=== PATIENT | female | born 1950 | race Caucasian/White ===

== ENCOUNTER 2016-04-11 08:50 | Outpatient (RCR) | payer OTHER ==
[~2016-04-11 08:50] MED LIST: ACTONEL PO; ONDA2VIA3 PO; TRM50T PO
--- OUTSIDE RECORDS SUMMARY | 2016-04-11 08:53 | XMS REPORT | Continuity of Care Document ---
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 Medications No known medications. Social History Social History Problem Response Recorded Date/Time Recent Foreign Travel N SEE ADDIS 01/11/2016 8:55am Hx Sexually Transmitted Disorders No 04/10/2012 7:38am Hospital Discharge Instructions No hospital discharge instructions. Plan of Care Prescriptions See Medication Section Functional Status No functional status results. Allergies, Adverse Reactions, Alerts Allergen Type Severity Reaction Status Last Updated Sulfa (Sulfonamide Antibiotics) ([id number]) Allergy Active 09/13/11 Immunizations No immunization records. Vital Signs No known vital signs results. Results Laboratory Results Test Name Result Units Flags Reference Collection Date/Time Result Date/ Time Comments White Blood Count 3.7 10^3/uL L 4.3-11.0 01/11/2016 9:05am 01/11/2016 9: 13am Red Blood Count 4.61 10^6/uL 4.35-5.85 01/11/2016 9:05am 01/11/2016 9: 13am Hemoglobin 12.9 G/DL 11.5-16.0 01/11/2016 9:05am 01/11/2016 9:13am Hematocrit 40 % 35-52 01/11/2016 9:05am 01/11/2016 9:13am Mean Corpuscular Volume 87 FL 80-99 01/11/2016 9:05am 01/11/2016 9: 13am Mean Corpuscular Hemoglobin 28 PG 25-34 01/11/2016 9:05am 01/11/2016 9: 13am Mean Corpuscular Hemoglobin Concent 32 G/DL 32-36 01/11/2016 9:05am 07/2015 9:13am Red Cell Distribution Width 13.2 % 10.0-14.5 01/11/2016 9:05am 2015 9:13am Platelet Count 247 10^3/uL 130-400 01/11/2016 9:05am 01/11/2016 9:13am Mean Platelet Volume 9.4 FL 7.4-10.4 01/11/2016 9:05am 01/11/2016 9: 13am Neutrophils (%) (Auto) 50 % 42-75 01/11/2016 9:05am 01/11/2016 9:13am Lymphocytes (%) (Auto) 35 % 12-44 01/11/2016 9:05am 01/11/2016 9:13am Monocytes (%) (Auto) 9 % 0-12 01/11/2016 9:05am 01/11/2016 9:13am Eosinophils (%) (Auto) 5 % 0-10 01/11/2016 9:05am 01/11/2016 9:13am Basophils (%) (Auto) 1 % 0-10 01/11/2016 9:05am 01/11/2016 9:13am Neutrophils # (Auto) 1.9 X 10^3 1.8-7.8 01/11/2016 9:05am 01/11/2016 9: 13am Lymphocytes # (Auto) 1.3 X 10^3 1.0-4.0 01/11/2016 9:05am 01/11/2016 9: 13am Monocytes # (Auto) 0.3 X 10^3 0.0-1.0 01/11/2016 9:05am 01/11/2016 9: 13am Eosinophils # (Auto) 0.2 10^3/uL 0.0-0.3 01/11/2016 9:05am 01/11/2016 9 :13am Basophils # (Auto) 0.0 10^3/uL 0.0-0.1 01/11/2016 9:05am 01/11/2016 9: 13am Sodium Level 140 MMOL/L 135-145 01/11/2016 9:0501/11/2016 9:45am Potassium Level 4.1 MMOL/L 3.6-5.0 01/11/2016 9:05am 01/11/2016 9:45am Chloride Level 108 MMOL/L H 98-107 01/11/2016 9:0501/11/2016 9:45am Carbon Dioxide Level 26 MMOL/L 21-32 01/11/2016 9:05am 01/11/2016 9: 45am Anion Gap 6 MMOL/L 5-14 01/11/2016 9:05am 01/11/2016 9:45am Blood Urea Nitrogen 17 MG/DL 7-18 01/11/2016 9:05am 01/11/2016 9:45am Creatinine 0.95 MG/DL 0.60-1.30 01/11/2016 9:05am 01/11/2016 9:45am BUN/Creatinine Ratio 18 01/11/2016 9:05am 01/11/2016 9:45am Estimat Glomerular Filtration Rate 59 01/11/2016 9:0501/11/2016 9:45am GFR INTERPRETIVE DATA UNITS FOR ESTIMATED GFR (eGFR): mL/min/1.73 M2 REFERENCE RANGE FOR ESTIMATED GFR (eGFR) eGFR NORMAL eGFR >60 MODERATELY DECREASED eGFR 30-59 SEVERLY DECREASED eGFR 15-29 KIDNEY FAILURE <15 (OR DIALYSIS) Glucose Level 126 MG/DL H 70-105 01/11/2016 9:0501/11/2016 9:45am Calcium Level 8.8 MG/DL 8.5-10.1 01/11/2016 9:0501/11/2016 9:45am Total Bilirubin 0.4 MG/DL 0.1-1.0 01/11/2016 9:05am 01/11/2016 9:45am Alkaline Phosphatase 68 U/L 40-136 01/11/2016 9:0501/11/2016 9:45am Aspartate Amino Transf (AST/SGOT) 15 U/L 5-34 01/11/2016 9:05am 2015 9:45am Alanine Aminotransferase (ALT/SGPT) 18 U/L 0-55 01/11/2016 9:05am 01/10 9:45am Total Protein 6.7 G/DL 6.4-8.2 01/11/2016 9:05am 01/11/2016 9:45am Albumin 4.0 G/DL 3.2-4.5 01/11/2016 9:05am 01/11/2016 9:45am Thyroid Stimulating Hormone (TSH) 1.62 UIU/ML 0.35-4.94 01/11/2016 9: 05am 01/11/2016 10:09am Free Thyroxine 0.99 NG/DL 0.70-1.48 01/11/2016 9:05am 01/11/2016 10: 09am Procedures No known history of procedures. Encounters Encounter Location Arrival/Admit Date Discharge/Depart Date Attending Provider Discharged [facility]ring [facility] 01/11/16 8:55am 9:58am JASPAL OLIVEIRA MD
[2016-04-11 09:15] LABS: BASOPHILS % (AUTO) 1 % (0-10); EOSINOPHILS # (AUTO) 0.2 10^3/uL (0.0-0.3); EOSINOPHILS % (AUTO) 4 % (0-10); LYMPHOCYTES # (AUTO) 1.8 X 10^3 (1.0-4.0); LYMPHOCYTES % (AUTO) 41 % (12-44); MEAN CORPUSCULAR HEMOGLOBIN 29 PG (25-34); MEAN CORPUSCULAR HGB CONC 33 G/DL (32-36); MEAN CORPUSCULAR VOLUME 87 FL (80-99); MEAN PLATELET VOLUME 9.5 FL (7.4-10.4); MONOCYTES # (AUTO) 0.5 X 10^3 (0.0-1.0); MONOCYTES % (AUTO) 12 % (0-12); NEUTROPHILS # (AUTO) 1.9 X 10^3 (1.8-7.8); NEUTROPHILS % (AUTO) 43 % (42-75); PLATELET COUNT 270 10^3/uL (130-400); RED BLOOD COUNT 4.58 10^6/uL (4.35-5.85); RED CELL DISTRIBUTION WIDTH 13.2 % (10.0-14.5); WHITE BLOOD COUNT 4.4 10^3/uL (4.3-11.0)
[2016-04-11 09:44] LABS: ALANINE AMINOTRANSFERASE 24 U/L (0-55); ALBUMIN 4.1 G/DL (3.2-4.5); ANION GAP 10 MMOL/L (5-14); ASPARTATE AMINO TRANSFERASE 16 U/L (5-34); BILIRUBIN,TOTAL 0.5 MG/DL (0.1-1.0); BLOOD UREA NITROGEN 11 MG/DL (7-18); BUN/CREATININE RATIO 12; CARBON DIOXIDE 24 MMOL/L (21-32); CHLORIDE 109 MMOL/L (98-107); CREATININE SERUM 0.93 MG/DL (0.60-1.30); GFR ESTIMATED > 60; GLUCOSE 115 MG/DL (70-105); POTASSIUM 3.9 MMOL/L (3.6-5.0); SODIUM 143 MMOL/L (135-145); TOTAL PROTEIN 6.8 G/DL (6.4-8.2)
== END 2016-07-10 | disposition home or self-care (01) ==
LOC: ONC 08:50
PROVIDERS: ATTEND Internal Medicine Hematology & Oncology
DX: C50.911 Malignant neoplasm of unspecified site of right female breast (principal); Z17.0 Estrogen receptor positive status [ER+]; M81.0 Age-related osteoporosis without current pathological fracture; E03.9 Hypothyroidism, unspecified; E66.9 Obesity, unspecified; Z68.33 Body mass index [BMI] 33.0-33.9, adult; Z79.811 Long term (current) use of aromatase inhibitors
CPT/HCPCS: 36415; 80053; 84443; 85025; 99213

== ENCOUNTER → 2016-10-03 | Outpatient (CLI) | payer MEDICARE ==
--- NOTE | 2016-10-06 17:52 | Diagnostic Imaging Report ---
Bilateral screening mammogram. The current study was also evaluated with a Computer Aided Detection (CAD) system. INDICATION: Screening. No current complaints stated on the questionnaire. COMPARISON: 10/04/15. FINDINGS: The breasts are composed of scattered fibroglandular densities. There are surgical clips seen in the central aspect of the right breast and in the axilla and skin thickening related to prior lumpectomy and radiation. Scarring in the lumpectomy site is also seen. No developing mass, architectural distortion or suspicious cluster of calcification is noted otherwise. Allowing for technique and positional differences, no suspicious change is seen. IMPRESSION: No significant change. ACR BI-RADS Category 2: Benign findings. Result letter will be mailed to the patient. Note: At least 10% of breast cancer is not imaged by mammography. Dictated by: Dictated on workstation # [id number]
== END ==
LOC: RAD 09:39
PROVIDERS: ATTEND Internal Medicine Hematology & Oncology
DX: Z12.31 Encounter for screening mammogram for malignant neoplasm of breast (principal)
CPT/HCPCS: 77067

== ENCOUNTER 2016-11-01 14:40 | Outpatient (RCR) | payer MEDICARE, OTHER ==
[2016-11-01 15:14] LABS: BASOPHILS # (AUTO) 0.1 10^3/uL (0.0-0.1); BASOPHILS % (AUTO) 1 % (0-10); EOSINOPHILS # (AUTO) 0.2 10^3/uL (0.0-0.3); EOSINOPHILS % (AUTO) 4 % (0-10); LYMPHOCYTES # (AUTO) 1.9 X 10^3 (1.0-4.0); LYMPHOCYTES % (AUTO) 36 % (12-44); MEAN CORPUSCULAR HEMOGLOBIN 28 PG (25-34); MEAN CORPUSCULAR HGB CONC 32 G/DL (32-36); MEAN CORPUSCULAR VOLUME 87 FL (80-99); MEAN PLATELET VOLUME 9.8 FL (7.4-10.4); MONOCYTES # (AUTO) 0.5 X 10^3 (0.0-1.0); MONOCYTES % (AUTO) 10 % (0-12); NEUTROPHILS # (AUTO) 2.5 X 10^3 (1.8-7.8); NEUTROPHILS % (AUTO) 48 % (42-75); PLATELET COUNT 269 10^3/uL (130-400); RED BLOOD COUNT 5.02 10^6/uL (4.35-5.85); RED CELL DISTRIBUTION WIDTH 13.1 % (10.0-14.5); WHITE BLOOD COUNT 5.1 10^3/uL (4.3-11.0)
[2016-11-01 15:31] LABS: ALBUMIN 4.2 G/DL (3.2-4.5); BILIRUBIN,TOTAL 0.3 MG/DL (0.1-1.0); CALCIUM 9.4 MG/DL (8.5-10.1); CREATININE SERUM 1.02 MG/DL (0.60-1.30); POTASSIUM 4.2 MMOL/L (3.6-5.0); TOTAL PROTEIN 7.2 G/DL (6.4-8.2)
[2016-11-01 15:51] LABS: THYROID STIMULATING HORMONE 1.55 UIU/ML (0.35-4.94)
== END 2017-01-30 | disposition home or self-care (01) ==
LOC: ONC 14:40
PROVIDERS: ATTEND Internal Medicine Hematology & Oncology
DX: C50.511 Malignant neoplasm of lower-outer quadrant of right female breast (principal); Z17.0 Estrogen receptor positive status [ER+]; M81.8 Other osteoporosis without current pathological fracture; E03.9 Hypothyroidism, unspecified; I10 Essential (primary) hypertension; K21.9 Gastro-esophageal reflux disease without esophagitis; M19.90 Unspecified osteoarthritis, unspecified site; E66.9 Obesity, unspecified; Z68.33 Body mass index [BMI] 33.0-33.9, adult; Z79.811 Long term (current) use of aromatase inhibitors; Z92.3 Personal history of irradiation
CPT/HCPCS: 36415; 80053; 84443; 85025; 99213

== ENCOUNTER → 2017-02-26 | Outpatient (CLI) | payer MEDICARE ==
[~2017-02-26] VITALS: Ht 154.9 cm; Wt 84.4 kg
[~2017-02-26] MED LIST changes: +DENOSUMAB 60 MG/1 ML (PROLIA) SQ ONE; +EXEM25TA4 PO; +LEVO50TA6 PO; +LOSARTAN POTASSIUM PO; +PANT40TA3 PO
[2017-02-26 13:06] VITALS: BP 139/74
== END ==
LOC: SDC 02-21 13:03
PROVIDERS: ATTEND Nurse Practitioner Family
DX: M81.0 Age-related osteoporosis without current pathological fracture (principal)
CPT/HCPCS: 96372

== ENCOUNTER 2017-04-26 10:06 | Outpatient (RCR) | payer MEDICARE, MEDICAID ==
[~2017-04-26 10:06] MED LIST changes: -DENOSUMAB 60 MG/1 ML (PROLIA) SQ ONE
[2017-04-26 10:20] LABS: BASOPHILS % (AUTO) 1 % (0-10); EOSINOPHILS # (AUTO) 0.2 10^3/uL (0.0-0.3); EOSINOPHILS % (AUTO) 4 % (0-10); HEMATOCRIT 44 % (35-52); LYMPHOCYTES # (AUTO) 1.9 X 10^3 (1.0-4.0); LYMPHOCYTES % (AUTO) 36 % (12-44); MEAN CORPUSCULAR HEMOGLOBIN 28 PG (25-34); MEAN CORPUSCULAR HGB CONC 32 G/DL (32-36); MEAN CORPUSCULAR VOLUME 88 FL (80-99); MEAN PLATELET VOLUME 9.7 FL (7.4-10.4); MONOCYTES # (AUTO) 0.6 X 10^3 (0.0-1.0); MONOCYTES % (AUTO) 11 % (0-12); NEUTROPHILS # (AUTO) 2.5 X 10^3 (1.8-7.8); NEUTROPHILS % (AUTO) 48 % (42-75); PLATELET COUNT 281 10^3/uL (130-400); RED BLOOD COUNT 4.96 10^6/uL (4.35-5.85); RED CELL DISTRIBUTION WIDTH 13.2 % (10.0-14.5); WHITE BLOOD COUNT 5.3 10^3/uL (4.3-11.0)
[2017-04-26 10:36] LABS: ALBUMIN 4.1 GM/DL (3.2-4.5); BILIRUBIN,TOTAL 0.4 MG/DL (0.1-1.0); CALCIUM 9.5 MG/DL (8.5-10.1); CREATININE SERUM 0.94 MG/DL (0.60-1.30); POTASSIUM 3.7 MMOL/L (3.6-5.0); TOTAL PROTEIN 7.5 GM/DL (6.4-8.2)
[2017-04-26 10:56] LABS: FREE T4 (FREE THYROXINE) 0.96 NG/DL (0.70-1.48)
== END 2017-07-25 | disposition home or self-care (01) ==
LOC: ONC 10:06
PROVIDERS: ATTEND Internal Medicine Hematology & Oncology
DX: C50.511 Malignant neoplasm of lower-outer quadrant of right female breast (principal); Z17.0 Estrogen receptor positive status [ER+]; M81.8 Other osteoporosis without current pathological fracture; E03.9 Hypothyroidism, unspecified; I10 Essential (primary) hypertension; K21.9 Gastro-esophageal reflux disease without esophagitis; M19.91 Primary osteoarthritis, unspecified site; E66.9 Obesity, unspecified; Z68.33 Body mass index [BMI] 33.0-33.9, adult; Z79.811 Long term (current) use of aromatase inhibitors; Z92.3 Personal history of irradiation
CPT/HCPCS: 36415; 80053; 84439; 84443; 85025; 99213

== ENCOUNTER → 2017-05-17 | Outpatient (CLI) | payer MEDICARE, MEDICAID ==
--- NOTE | 2017-05-17 12:03 | Diagnostic Imaging Report ---
EXAMINATION: DEXA scan. INDICATION: Osteopenia. TECHNIQUE: Bone mineral density estimated based on dual energy radiography over the lumbar spine and femoral necks, was performed. FINDINGS: The lumbar spine T-score is -2.7. This is 14% increased density measurements compared to 12/13/2012. This increase is perhaps in part related to sclerotic degenerative changes. T score over the left femoral neck is -0.9 and on the right side is -0.7. IMPRESSION: Osteoporosis. Dictated by: Dictated on workstation # [id number]
== END ==
LOC: RAD 08:26
PROVIDERS: ATTEND Internal Medicine Hematology & Oncology
DX: M81.0 Age-related osteoporosis without current pathological fracture (principal); C50.511 Malignant neoplasm of lower-outer quadrant of right female breast; E03.8 Other specified hypothyroidism; Z78.0 Asymptomatic menopausal state
CPT/HCPCS: 77080

== ENCOUNTER → 2017-09-10 | Outpatient (CLI) | payer MEDICARE, MEDICAID ==
[~2017-09-10] VITALS: Ht 154.9 cm; Wt 84.4 kg
[~2017-09-10] MED LIST changes: +DENOSUMAB 60 MG/1 ML (PROLIA) SQ ONE
[2017-09-10 13:38] VITALS: BP 138/77
== END ==
LOC: EDSTATUS 09-09 10:00 → SDC 13:16
PROVIDERS: ATTEND Nurse Practitioner Family
DX: M81.0 Age-related osteoporosis without current pathological fracture (principal)
CPT/HCPCS: 96372

== ENCOUNTER 2017-09-20 10:20 | Outpatient (RCR) | payer MEDICARE, MEDICAID ==
[2017-09-20 09:54] LABS: BASOPHILS # (AUTO) 0.1 10^3/uL (0.0-0.1); BASOPHILS % (AUTO) 3 % (0-10); EOSINOPHILS # (AUTO) 0.6 10^3/uL (0.0-0.3); EOSINOPHILS % (AUTO) 11 % (0-10); HEMATOCRIT 41 % (35-52); HEMOGLOBIN 13.4 G/DL (11.5-16.0); LYMPHOCYTES # (AUTO) 1.6 X 10^3 (1.0-4.0); LYMPHOCYTES % (AUTO) 32 % (12-44); MEAN CORPUSCULAR HEMOGLOBIN 29 PG (25-34); MEAN CORPUSCULAR HGB CONC 32 G/DL (32-36); MEAN CORPUSCULAR VOLUME 88 FL (80-99); MEAN PLATELET VOLUME 9.4 FL (7.4-10.4); MONOCYTES # (AUTO) 0.8 X 10^3 (0.0-1.0); MONOCYTES % (AUTO) 16 % (0-12); NEUTROPHILS # (AUTO) 1.9 X 10^3 (1.8-7.8); NEUTROPHILS % (AUTO) 38 % (42-75); PLATELET COUNT 280 10^3/uL (130-400); RED BLOOD COUNT 4.71 10^6/uL (4.35-5.85); RED CELL DISTRIBUTION WIDTH 13.7 % (10.0-14.5)
[2017-09-20 10:14] LABS: ALANINE AMINOTRANSFERASE 19 U/L (0-55); ALBUMIN 4.1 GM/DL (3.2-4.5); ALKALINE PHOSPHATASE 90 U/L (40-136); BILIRUBIN,TOTAL 0.4 MG/DL (0.1-1.0); BUN/CREATININE RATIO 16; CALCIUM 8.5 MG/DL (8.5-10.1); CARBON DIOXIDE 24 MMOL/L (21-32); CHLORIDE 109 MMOL/L (98-107); CREATININE SERUM 0.85 MG/DL (0.60-1.30); GFR ESTIMATED > 60; GLUCOSE 98 MG/DL (70-105); MAGNESIUM 2.3 MG/DL (1.8-2.4); POTASSIUM 4.1 MMOL/L (3.6-5.0); SODIUM 139 MMOL/L (135-145); TOTAL PROTEIN 7.3 GM/DL (6.4-8.2)
== END 2017-12-19 | disposition home or self-care (01) ==
LOC: ONC 10:20
PROVIDERS: ATTEND Internal Medicine Hematology & Oncology
DX: C50.511 Malignant neoplasm of lower-outer quadrant of right female breast (principal); Z17.0 Estrogen receptor positive status [ER+]; M81.8 Other osteoporosis without current pathological fracture; E03.9 Hypothyroidism, unspecified; I10 Essential (primary) hypertension; K21.9 Gastro-esophageal reflux disease without esophagitis; M19.91 Primary osteoarthritis, unspecified site; E66.9 Obesity, unspecified; Z68.33 Body mass index [BMI] 33.0-33.9, adult; Z79.811 Long term (current) use of aromatase inhibitors; Z92.3 Personal history of irradiation
CPT/HCPCS: 36415; 80053; 83735; 85025; 99213

== ENCOUNTER → 2017-09-20 | Outpatient (CLI) | payer MEDICARE, MEDICAID ==
[~2017-09-20] MED LIST changes: -DENOSUMAB 60 MG/1 ML (PROLIA) SQ ONE
== END ==
LOC: CARD 16:18
PROVIDERS: ATTEND Nurse Practitioner Family
DX: I49.9 Cardiac arrhythmia, unspecified (principal)
CPT/HCPCS: 93005

== ENCOUNTER → 2017-10-05 | Outpatient (CLI) | payer MEDICARE, OTHER ==
--- NOTE | 2017-10-05 13:28 | Diagnostic Imaging Report ---
INDICATION: Breast carcinoma. COMPARISON: Comparison is made with prior studies of 10/03/2016 and 10/04/2015. TECHNIQUE: Bilateral 3D digital tomographic views were obtained with [employer] and reviewed on a [employer] workstation. In addition, CAD - computer aided detection was utilized. FINDINGS: Both breasts are primarily involutional. Postsurgical changes in the right breast are again noted with multiple surgical clips present in the central and lateral right breast. Benign-appearing nodular densities in both breasts appear stable. No spiculated mass or malignant-appearing microcalcifications are seen. IMPRESSION: Stable bilateral mammograms. No mammographic features suspicious for malignancy are identified. ACR BI-RADS Category 2: Benign findings. Result letter will be mailed to the patient. Note: At least 10% of breast cancer is not imaged by mammography. Dictated by: Dictated on workstation # [id number]
== END ==
LOC: RAD 08:38
PROVIDERS: ATTEND Internal Medicine Hematology & Oncology
DX: Z12.31 Encounter for screening mammogram for malignant neoplasm of breast (principal); Z85.3 Personal history of malignant neoplasm of breast
CPT/HCPCS: 77067

== ENCOUNTER → 2017-10-25 | Outpatient (CLI) | payer MEDICARE, MEDICAID ==
[~2017-10-25] VITALS: Ht 154.9 cm; Wt 82.1 kg
[~2017-10-25] MED LIST changes: +CATHETER FLUSH 10 ML SYR IV PRN; +REGADENOSON 0.4 MG/5 ML SYR (LEXISCAN) IV ONE
[2017-10-25 09:18] VITALS: BP 151/98
[2017-10-25 17:14] VITALS: BP 137/81
--- NOTE | 2017-10-25 17:14 | Cardiology Stress Test Report ---
Stress Test Report Type of NM Stress Test: Test Type: LEXISCAN 0.4MG/5ML Date of Procedure/Referring: Date of Procedure: October 25, 2017 PCP Michael Holman MD Admitting Physician Michaela Quinteros MD Indications: Shortness of breath. Baseline Heart Rate: 81 Baseline Blood Pressure: Blood Pressure Systolic: 137 Blood Pressure Diastolic: 81 Baseline EKG: Baseline EKG: Sinus rhythm with PVCs. Summary: The patient was brought to the stress level off informed consent was taken. Stress test was performed according to the Lexiscan protocol. 0.4 mg of IV Lexiscan was given. Low-grade exercise was performed. Baseline EKG showed sinus rhythm with PVCs at 81 bpm and blood pressure 137/84 mmHg. Maximum heart rate of 113 bpm and blood pressure 151/98 mmHg. Patient did not have any chest pain. No EKG changes or arrhythmias noted. Patient had frequent PVCs. 10.54 mCi of Myoview were given for rest imaging and 29.5 mCi of Myoview given for stress imaging. Transient ischemic dilatation score of 1.0. Ejection fraction of 70 percent with normal wall motion. Normal perfusion during rest and stress. SSS 1, SRS 0, SDS 1. Conclusion: Pharmacological stress test is negative. Normal wall motion and normal EF, Normal perfusion during rest and stress. Michael HOLMAN MD October 25, 2017 5:14 pm
== END ==
LOC: CARD 06:57
PROVIDERS: ATTEND Internal Medicine Interventional Cardiology
DX: I10 Essential (primary) hypertension (principal); R06.02 Shortness of breath; E78.5 Hyperlipidemia, unspecified; E66.8 Other obesity
CPT/HCPCS: 78452; 93017

== ENCOUNTER → 2017-10-31 | Outpatient (CLI) | payer MEDICARE, MEDICAID ==
[~2017-10-31] MED LIST changes: -CATHETER FLUSH 10 ML SYR IV PRN; -REGADENOSON 0.4 MG/5 ML SYR (LEXISCAN) IV ONE
== END ==
LOC: CARD 08:35
PROVIDERS: ATTEND Internal Medicine Interventional Cardiology
DX: R06.02 Shortness of breath (principal); E78.5 Hyperlipidemia, unspecified; I10 Essential (primary) hypertension; I49.3 Ventricular premature depolarization; I08.3 Combined rheumatic disorders of mitral, aortic and tricuspid valves; E66.9 Obesity, unspecified
CPT/HCPCS: 93306

== ENCOUNTER → 2018-02-28 | Day surgery (SDC) | payer MEDICARE, MEDICAID ==
[~2018-02-28] VITALS: Ht 154.9 cm; Wt 81.2 kg
[~2018-02-28] MED LIST changes: +LIDOCAINE 1% INJ 20 ML 20 ML VIAL ONE
--- OUTSIDE RECORDS SUMMARY | 2018-02-28 07:52 | XMS REPORT | CCD ---
Author Author Michaela Quinteros Organization Michaela Quinteros MD, [facility] Address [address] [place] [address] Phone Care Team Providers Care Manager Laboratory Name Role Phone PP Unavailable CCM Unavailable Summary Purpose Interface Exchange Insurance Providers Payer name Policy type / Coverage type Covered libertarian ID Effective Begin Date Effective End Date [employer] Commercial Insurance [id number] Unknown [facility] Commercial Insurance [id number] 2017 Unknown Family history Father Diagnosis Age At Onset Dementia Unknown Grandfather Diagnosis Age At Onset No Family Disease Entered N/A Aunt Diagnosis Age At Onset Ovarian cancer Unknown Mother Diagnosis Age At Onset Osteoporosis Unknown Heart Attack Unknown Hypertension Unknown Hyperlipidemia Unknown Son Diagnosis Age At Onset Alcoholism Unknown Brother Diagnosis Age At Onset Alcoholism Unknown Social History Social History Element Codes Description Effective Dates Employment Unknown Currently employed Recently let go by Names and Numbers- works in [employer] 05/01/2016 Marital status Unknown 02/11/[address]: 265278369 Never smoker 02/11/[address]: 782601095 Never drinks alcohol 02/11/2013 Has the patient ever used illegal drugs? Unknown Has never used illegal drugs 02/11/2013 Allergies, Adverse Reactions, Alerts Substance Reaction Codes Entered Date Inactivated Date Status * NO KNOWN ENVIRONMENTAL ALLERGIES Unknown 02/12/2013 No Inactive Date Active * NO KNOWN FOOD ALLERGIES Unknown 02/12/2013 No Inactive Date Active SULFA (SULFONAMIDE ANTIBIOTICS) Unknown 02/11/2013 No Inactive Date Active Past Medical History Illness Codes Condition Status Onset Date Resolved Date Cardiac arrhythmia, unspecified ICD-9: 427.9 ICD-10: I49.9 Active 09/20/2017 Unknown Acute laryngopharyngitis ICD-9: 465.0 ICD-10: J06.0 Active 07/25/2017 Unknown Other allergic rhinitis ICD-9: 477.8 ICD-10: J30.89 Active 07/25/2017 Unknown Age-related osteoporosis without current pathological fracture ICD-9: 733.00 ICD-10: M81.0 Active 02/14/2017 Unknown Atrophy of thyroid (acquired) ICD-9: 244.8 ICD-10: E03.4 Active 04/30/2016 Unknown Essential (primary) hypertension ICD-9: 401.1 ICD-10: I10 Active 04/30/2016 Unknown Pain in right shoulder ICD-9: 719.41 ICD-10: M25.511 Active 09/19/2016 Unknown Encounter for general adult medical examination with abnormal findings ICD-9: V70.0 ICD-10: Z00.01 Active 09/26/2016 Unknown Hypothryroidism Unknown Active 09/07/2014 Unknown Adult hypothyroidism ICD-9: 244.9 Active 09/07/2014 Unknown Hypertension Unknown Active 06/16/2014 Unknown ESSENTIAL HYPERTENSION ICD-9: 401.9 Active 06/16/2014 Unknown OBESITY ICD-9: 278.00 Active 06/16/2014 Unknown Elevated blood pressure ICD-9: 796.2 Active 12/17/2013 Unknown ESOPHAGEAL REFLUX ICD- 9: 530.81 Active 12/16/2013 Unknown Dietary counseling ICD -9: V65.3 Active 08/14/2013 Unknown Routine general medical examination at a health care facility ICD-9: V70.0 Active 02/12/2013 Unknown Problems Condition Codes Effective Dates Condition Status Cardiac arrhythmia, unspecified ICD-9: 427.9 ICD-10: I49.9 09/20/2017 Active Acute laryngopharyngitis ICD-9: 465.0 ICD-10: J06.0 07/25/2017 Active Other allergic rhinitis ICD-9: 477.8 ICD-10: J30.89 07/25/2017 Active Age-related osteoporosis without current pathological fracture ICD-9: 733.00 ICD-10: M81.0 02/14/2017 Active Atrophy of thyroid (acquired) ICD-9: 244.8 ICD-10: E03.4 04/30/2016 Active Essential (primary) hypertension ICD-9: 401.1 ICD-10: I10 04/30/2016 Active Pain in right shoulder ICD-9: 719.41 ICD-10: M25.511 09/19/2016 Active Encounter for general adult medical examination with abnormal findings ICD-9: V70.0 ICD-10: Z00.01 09/26/2016 Active Hypothryroidism Unknown 09/07/2014 Active Adult hypothyroidism ICD-9: 244.9 09/07/2014 Active Hypertension Unknown 06/16/2014 Active ESSENTIAL HYPERTENSION ICD-9: 401.9 06/16/2014 Active OBESITY ICD-9: 278.00 06/16/2014 Active Elevated blood pressure ICD-9: 796.2 12/17/2013 Active ESOPHAGEAL REFLUX ICD- 9: 530.81 12/16/2013 Active Dietary counseling ICD -9: V65.3 08/14/2013 Active Routine general medical examination at a health care facility ICD-9: V70.0 Active Medications Medication Codes Instructions Start Date Stop Date Status Fill Instructions Synthroid 50 mcg tablet RxNorm: 487805 TAKE ONE TABLET BY MOUTH DAILY 01/23/2018 01/17/2019 Active Xarelto 20 mg tablet RxNorm: 2684618 1 Tablet(s) PO daily 12/1412/08/2018 Active Xarelto 20 mg tablet RxNorm: 3714502 1 Tablet(s) PO daily 11/1611/15/2017 Inactive Xarelto 20 mg tablet RxNorm: 0913278 1 Tablet(s) PO daily 11/1612/13/2017 Inactive Xarelto 20 mg tablet RxNorm: 0119710 1 Tablet(s) PO daily 11/1611/15/2017 Inactive pantoprazole 40 mg tablet,delayed release RxNorm: 979267 TAKE ONE TABLET BY MOUTH EVERY EVENING 11/08/2017 08/04/2018 Active Synthroid 50 mcg tablet RxNorm: 479658 TAKE ONE TABLET BY MOUTH DAILY 10/22/2017 01/19/2018 Inactive losartan 25 mg tablet RxNorm: 555302 TAKE ONE TABLET BY MOUTH EVERY EVENING 10/09/2017 10/03/2018 Active Zithromax Z-Andrei 250 mg tablet RxNorm: 774110 1 Tablet(s) PO UD 08/13/2017 10/08/2017 Inactive amoxicillin 500 mg capsule RxNorm: 079800 1 Capsule(s) PO TID 07/25/2017 08/03/2017 Inactive Synthroid 50 mcg tablet RxNorm: 261046 TAKE ONE TABLET BY MOUTH DAILY 03/27/2017 09/22/2017 Inactive pantoprazole 40 mg tablet,delayed release RxNorm: 024147 TAKE ONE TABLET BY MOUTH EVERY EVENING 11/09/2016 11/03/2017 Inactive losartan 25 mg tablet RxNorm: 717989 1 Tablet(s) PO QPM 201609/13/2017 Inactive Synthroid 50 mcg tablet RxNorm: 486652 1 Tablet(s) PO daily TAKE ONE TABLET BY MOUTH DAILY 09/19/2016 03/17/2017 Inactive alendronate 70 mg tablet RxNorm: 537661 1 Tablet(s) PO QW 09/1902/13/2017 Inactive pantoprazole 40 mg tablet,delayed release RxNorm: 544921 1 Tablet(s) PO QPM TAKE ONE TABLET BY MOUTH EVERY EVENING 05/01/2016 10/27/2016 Inactive losartan 25 mg tablet RxNorm: 154269 1 Tablet(s) PO QPM TAKE ONE TABLET BY MOUTH EVERY NIGHT AT BEDTIME 05/01/20162016 Inactive Synthroid 50 mcg tablet RxNorm: 780383 1 Tablet(s) PO daily TAKE ONE TABLET BY MOUTH DAILY 05/01/2016 09/18/2016 Inactive pantoprazole 40 mg tablet,delayed release RxNorm: 670520 TAKE ONE TABLET BY MOUTH EVERY EVENING 06/01/2015 11/27/2015 Inactive Synthroid 50 mcg tablet RxNorm: 623598 Tablet(s) PO TAKE ONE TABLET BY MOUTH DAILY 04/28/2015 11/23/2015 Inactive losartan 25 mg tablet RxNorm: 458994 TAKE ONE TABLET BY MOUTH EVERY NIGHT AT BEDTIME 04/24/2015 04/17/2016 Inactive losartan 25 mg tablet RxNorm: 458105 1 Tablet(s) PO QHS 201410/08/2017 Inactive Fosamax 70 mg tablet RxNorm: 032947 TAKE ONE TABLET BY MOUTH WEEKLY 03/30/2015 06/21/2015 Inactive Synthroid 25 mcg tablet RxNorm: 825446 TAKE ONE TABLET BY MOUTH DAILY 03/23/2015 04/27/2015 Inactive Fosamax 70 mg tablet RxNorm: 664872 1 Tablet(s) PO weekly 12/1012/09/2014 Inactive Fosamax 70 mg tablet RxNorm: 481573 1 Tablet(s) PO weekly 12/1003/29/2015 Inactive Synthroid 25 mcg tablet RxNorm: 778990 1 Tablet(s) PO daily 02/201503/16/2015 Inactive [SAVINGS FOR UNINSURED PATIENTS -- BIN:[id number], PCN: [id number], Group: [id number] , ID# [id number], Process claim through [employer], for questions: . THIS IS NOT INSURANCE.] losartan 25 mg tablet RxNorm: 528545 1 Tablet(s) PO QHS 201404/13/2015 Inactive pantoprazole 40 mg tablet,delayed release RxNorm: 426963 TAKE ONE TABLET BY MOUTH EVERY EVENING 08/17/2014 05/13/2015 Inactive Synthroid 25 mcg tablet RxNorm: 418352 1 Tablet(s) PO daily 11/02/2014 Inactive [SAVINGS FOR UNINSURED PATIENTS -- BIN:[id number], PCN: [id number], Group: [id number] , ID# [id number], Process claim through [email or web address], for questions: . THIS IS NOT INSURANCE.] Synthroid 25 mcg tablet RxNorm: 823035 1 Tablet(s) PO daily 07/05/2014 Inactive alendronate sodium-cholecalciferol(vitamin D3) 70 mg-2,800 unit tablet RxNorm: 477851 1 Tablet(s) PO QW 05/04/20142014 Inactive losartan 25 mg tablet RxNorm: 823352 1 Tablet(s) PO QHS 201308/28/2014 Inactive losartan 25 mg tablet RxNorm: 546941 1 Tablet(s) PO QHS 201304/15/2014 Inactive losartan 25 mg tablet RxNorm: 937053 1 Tablet(s) PO QHS 201312/16/2013 Inactive alendronate sodium-cholecalciferol(vitamin D3) 70 mg-2,800 unit tablet RxNorm: 985083 1 Tablet(s) PO QW 09/18/20132013 Inactive pantoprazole 40 mg tablet,delayed release RxNorm: 915312 1 Tablet(s) PO QPM 08/14/2013 08/08/2014 Inactive Calcium + Vitamin D 600 mg calcium-200 unit tablet RxNorm: 328799 2 Tablet(s) PO BID No Start Date Active exemestane 25 mg tablet RxNorm: 262886 1 Tablet(s) PO daily No Start Date Active Vitamin B12 500 mcg RxNorm: 1 Tablet(s) PO daily No Start Date Active alendronate sodium-cholecalciferol(vitamin D3) 70 mg-2,800 unit tablet RxNorm: 091615 1 Tablet(s) PO QW No Start Date 2013 Inactive Zithromax Z-Andrei 250 mg tablet RxNorm: 445977 1 Tablet(s) PO UD No Start Date 08/12/2017 Inactive alendronate 70 mg tablet RxNorm: 432104 1 Tablet(s) PO QW No Start Date 09/18/2016 Inactive Medication Administered No Medication Administered data Immunizations Vaccine Codes Date Status PPD Unknown 12/17/2013 completed Influenza CVX: 141 03/24/2013 completed Zoster CVX: 121 03/24/2013 completed Pneumococcal CVX: 133 02/13/2013 completed Influenza CVX: 141 06/10/2012 completed Pneumococcal CVX: 33 06/10/2012 completed Tetanus, Diptheria, Pertussis CVX: 113 completed Tetanus/Diptheria CVX: 113 10/09/2011 completed Assessments Condition Codes Effective Dates Cardiac arrhythmia, unspecified ICD-10: I49.9 ICD-9: 427.9 09/20/2017 Other allergic rhinitis ICD-10: J30.89 ICD-9: 477.8 07/25/2017 Acute laryngopharyngitis ICD-10: J06.0 ICD-9: 465.0 07/25/2017 Pain in right shoulder ICD-10: M25.511 ICD-9: 719.41 02/14/2017 Atrophy of thyroid (acquired) ICD-10: E03.4 ICD-9: 244.8 02/14/2017 Essential (primary) hypertension ICD-10: I10 ICD-9: 401.1 02/14/2017 Age-related osteoporosis without current pathological fracture ICD-10: M81.0 ICD-9: 733.00 02/14/2017 Encounter for general adult medical examination with abnormal findings ICD-10: Z00.01 ICD-9: V70.0 09/26/2016 Adult hypothyroidism ICD-9: 244.9 2014 ESSENTIAL HYPERTENSION ICD-9: 401.9 03/30 /2015 ESOPHAGEAL REFLUX ICD-9: 530.81 2014 OBESITY ICD-9: 278.00 06/16/2014 Elevated blood pressure ICD-9: 796.2 02/2014 Dietary counseling ICD-9: V65.3 2013 Routine general medical examination at a [facility] care facility ICD-9: V70.0 02/12/2013 Reason For Visit Reason For Visit Effective Dates Notes arrhythmia 09/20/2017 sore throat 07/25/2017 shoulder pain 02/14/2017 Annual Medicare Wellness Exam 09/26/2016 shoulder pain 09/19/2016 hypothyroid 05/01/2016 hypertension 09/07/2014 hypertension 06/16/2014 gastroesophageal reflux 12/16/2013 gastroesophageal reflux 08/14/2013 well woman exam (40-65 years) 02/12/2013 Results Observation Observation Code Item Item Code Result Date GFR CALC 3130223 GFR AA >60 ML/MIN 06/19/2014 GFR CALC 2603847 GFR NON-AA 58.0L ML/MIN 06/19/2014 CHEM 14 4603401 AST 21 U/L 06/19/2014 CHEM 14 8533381 ALT 22 IU/L 06/19/2014 CHEM 14 5675398 BUN 15 MG/DL 06/19/2014 CHEM 14 6568013 ALBUMIN 4.5 GM/DL 06/19/2014 CHEM 14 1400331 CHLORIDE 104 MMOL/L 06/19/2014 CHEM 14 8546106 BILI TOT 0.5 MG/DL 06/19/2014 CHEM 14 8653382 ALK PHOS 81 U/L 06/19/2014 CHEM 14 2768605 SODIUM 138 MMOL/L 06/19/2014 CHEM 14 2116393 CREATININE 0.97 MG/DL 06/19/2014 CHEM 14 2781203 CALCIUM 9.3 MG/DL 06/19/2014 CHEM 14 8660807 POTASSIUM 4.0 MMOL/L 06/19/2014 CHEM 14 1667024 PROT TOT 7.4 GM/DL 06/19/2014 CHEM 14 6435222 GLUCOSE 91 MG/DL 06/19/2014 CHEM 14 9331537 BICARB 28 MMOL/L 06/19/2014 CHEM 14 1421799 ANION GAP 6 MEQ/L 06/19/2014 CBC 3232034 WBC 4.1 10e9/L 06/19/2014 CBC 2460162 RBC 4.98 10e12/L 06/19/2014 CBC 8446125 HGB 14.1 g/dL 06/19/2014 CBC 7361170 HCT DET 43.7 % 06/19/2014 CBC 8741841 MCV 87.8 fL 06/19/2014 CBC 7601798 MCH 28.3 pg 06/19/2014 CBC 3920821 MCHC 32.3 g/dL 06/19/2014 CBC 4400176 PLT 289 10e9/L 06/19/2014 CBC 6522270 MPV 9.7 fL 06/19/2014 CBC 1808901 OSIEL % 43.1 % 06/19/2014 CBC 3564886 LY % 40.7 % 06/19/2014 CBC [id number] MON % 12.3 % 06/19/2014 CBC 5549621 EOS % 3.2 % 06/19/2014 CBC 1126784 BASO % 0.7 % 06/19/2014 CBC 8697118 RDW 13.3 % 06/19/2014 CBC 8611238 ABS OSIEL 1.77 10e9/L 06/19/2014 CBC 3047276 ABS LYMPH 1.67 10e9/L 06/19/2014 CBC 9239552 ABS MONO 0.50 10e9/L 06/19/2014 CBC [id number] ABS EOS 0.13 10e9/L 06/19/2014 CBC 3990796 ABS BASO 0.03 10e9/L 06/19/2014 CBC 6809882 RDW-SD 41.7 fL 06/19/2014 LIPID GRP HDL TEST 30 MG/DL 06/19/2014 LIPID GRP TRIG 119 MG/DL 06/19/2014 LIPID GRP TEST LDL 129 MG/DL 06/19/2014 LIPID GRP CHOL 183 MG/DL 06/19/2014 LIPID GRP RCHOL/HDL 6.10 RATIO 06/19/2014 LIPID GRP NON-HDL CH 153 MG/DL 06/19/2014 TSH 0022775 TSH 5.125 uIU/ML 06/19/2014 Review of Systems System Result Effective Dates Constitutional No recent illness 2017 Constitutional No chills 09/20/2017 Constitutional No diaphoresis 09/20/2017 Constitutional No fever 09/20/2017 Constitutional No fatigue 09/20/2017 Constitutional No malaise 09/20/2017 Eyes No eye erythema 09/20/2017 Ears/Nose/Throat/Neck No nasal discharge 09/20/2017 Ears/Nose/Throat/Neck No nasal allergies 09/20/2017 Cardiovascular No chest pain/pressure 05/2018 Cardiovascular No dyspnea 09/20/2017 Cardiovascular No edema 09/20/2017 Cardiovascular No fatigue 09/20/2017 Cardiovascular No near-syncope/dizziness 09/20/2017 Cardiovascular No palpitations 2017 Cardiovascular No syncope 09/20/2017 Respiratory No cough 09/20/2017 Respiratory No chest congestion 2017 Gastrointestinal No abdominal pain 2017 Dermatologic No rash 09/20/2017 Neurologic No alteration of consciousness 09/20/2017 Neurologic No mental status change 2017 Constitutional recent illness 07/25/2017 Constitutional chills 07/25/2017 Constitutional No diaphoresis 07/25/2017 Constitutional fever 07/25/2017 Eyes No eye erythema 07/25/2017 Ears/Nose/Throat/Neck nasal allergies Ears/Nose/Throat/Neck nasal discharge Ears/Nose/Throat/Neck postnasal drip Ears/Nose/Throat/Neck sinus congestion Ears/Nose/Throat/Neck sore throat 2017 Cardiovascular No chest pain/pressure Cardiovascular No dyspnea 07/25/2017 Respiratory No chest congestion 2017 Respiratory cough 07/25/2017 Respiratory No dyspnea 07/25/2017 Gastrointestinal No constipation 2017 Gastrointestinal No diarrhea 07/25/2017 Gastrointestinal No nausea 07/25/2017 Gastrointestinal No vomiting 07/25/2017 Dermatologic No rash 07/25/2017 Neurologic No alteration of consciousness 07/25/2017 Neurologic No mental status change 2017 Constitutional No recent illness 2016 Constitutional No fatigue 02/14/2017 Constitutional No fever 02/14/2017 Constitutional No insomnia 02/14/2017 Eyes No eye discharge 02/14/2017 Eyes No eye erythema 02/14/2017 Ears/Nose/Throat/Neck No headache 2016 Ears/Nose/Throat/Neck No nasal discharge 02/14/2017 Cardiovascular No chest pain/pressure 11/2016 Cardiovascular No edema 02/14/2017 Cardiovascular No near-syncope/dizziness 02/14/2017 Cardiovascular No syncope 02/14/2017 Respiratory No productive sputum 2016 Respiratory No chest congestion 2016 Respiratory No chest tightness 2016 Respiratory No cigarette smoking 2016 Respiratory No cough 02/14/2017 Respiratory No dyspnea 02/14/2017 Gastrointestinal No abdominal pain 2016 Gastrointestinal No constipation 2016 Gastrointestinal No diarrhea 02/14/2017 Gastrointestinal gas and bloating 2016 Gastrointestinal gastroesophageal reflux 02/14/2017 Gastrointestinal No nausea 02/14/2017 Gastrointestinal No vomiting 02/14/2017 Genitourinary/Nephrology No breast complaint 02/14/2017 Genitourinary/Nephrology No dysuria 02/14 Genitourinary/Nephrology No hematuria 11/2016 Genitourinary/Nephrology No menopausal symptoms 02/14/2017 Genitourinary/Nephrology No nocturia 11/2016 Genitourinary/Nephrology No Pap smear abnormality 02/14/2017 Genitourinary/Nephrology No urinary urgency 02/14/2017 Genitourinary/Nephrology No urinary frequency 02/14/2017 Genitourinary/Nephrology No urinary incontinence 02/14/2017 Genitourinary/Nephrology No vaginal discharge 02/14/2017 Musculoskeletal stiffness 02/14/2017 Musculoskeletal No swelling 02/14/2017 Musculoskeletal No joint complaint 2016 Musculoskeletal No muscle weakness 2016 Musculoskeletal No myalgias 02/14/2017 Dermatologic No rash 02/14/2017 Neurologic No alteration of consciousness 02/14/2017 Psychiatric No anxiety 02/14/2017 Psychiatric No depression 02/14/2017 Musculoskeletal shoulder pain 02/14/2017 Constitutional No recent illness 2016 Constitutional No chills 09/26/2016 Constitutional No diaphoresis 09/26/2016 Constitutional No fever 09/26/2016 Eyes No eye erythema 09/26/2016 Ears/Nose/Throat/Neck No nasal allergies 09/26/2016 Ears/Nose/Throat/Neck No nasal discharge 09/26/2016 Cardiovascular No chest pain/pressure Respiratory No cough 09/26/2016 Respiratory No dyspnea 09/26/2016 Gastrointestinal No abdominal pain 2016 Neurologic No alteration of consciousness 09/26/2016 Neurologic No mental status change 2016 Constitutional No recent illness 2016 Constitutional No fatigue 09/19/2016 Constitutional No fever 09/19/2016 Constitutional No insomnia 09/19/2016 Eyes No eye discharge 09/19/2016 Eyes No eye erythema 09/19/2016 Ears/Nose/Throat/Neck No headache 2016 Ears/Nose/Throat/Neck No nasal discharge 09/19/2016 Cardiovascular No chest pain/pressure 04/2017 Cardiovascular No edema 09/19/2016 Cardiovascular No near-syncope/dizziness 09/19/2016 Cardiovascular No syncope 09/19/2016 Respiratory No productive sputum 2016 Respiratory No chest congestion 2016 Respiratory No chest tightness 2016 Respiratory No cigarette smoking 2016 Respiratory No cough 09/19/2016 Respiratory No dyspnea 09/19/2016 Gastrointestinal No abdominal pain 2016 Gastrointestinal No constipation 2016 Gastrointestinal No diarrhea 09/19/2016 Gastrointestinal gastroesophageal reflux 09/19/2016 Gastrointestinal No nausea 09/19/2016 Gastrointestinal No vomiting 09/19/2016 Genitourinary/Nephrology No breast complaint 09/19/2016 Genitourinary/Nephrology No dysuria 09/19 Genitourinary/Nephrology No hematuria 04/2017 Genitourinary/Nephrology No menopausal symptoms 09/19/2016 Genitourinary/Nephrology No nocturia 04/2017 Genitourinary/Nephrology No Pap smear abnormality 09/19/2016 Genitourinary/Nephrology No urinary urgency 09/19/2016 Genitourinary/Nephrology No urinary frequency 09/19/2016 Genitourinary/Nephrology No urinary incontinence 09/19/2016 Genitourinary/Nephrology No vaginal discharge 09/19/2016 Musculoskeletal No stiffness 09/19/2016 Musculoskeletal No swelling 09/19/2016 Musculoskeletal joint complaint 2016 Musculoskeletal No muscle weakness 2016 Musculoskeletal No myalgias 09/19/2016 Dermatologic No rash 09/19/2016 Dermatologic No scar 09/19/2016 Neurologic No alteration of consciousness 09/19/2016 Psychiatric No anxiety 09/19/2016 Psychiatric No depression 09/19/2016 Musculoskeletal shoulder pain 09/19/2016 Constitutional No recent illness 2015 Constitutional No fatigue 05/01/2016 Constitutional No fever 05/01/2016 Constitutional No insomnia 05/01/2016 Eyes No eye discharge 05/01/2016 Eyes No eye erythema 05/01/2016 Ears/Nose/Throat/Neck No headache 2015 Ears/Nose/Throat/Neck No nasal discharge 05/01/2016 Cardiovascular No chest pain/pressure Cardiovascular No edema 05/01/2016 Cardiovascular No near-syncope/dizziness 05/01/2016 Cardiovascular No syncope 05/01/2016 Respiratory No productive sputum 2015 Respiratory No chest congestion 2015 Respiratory No chest tightness 2015 Respiratory No cigarette smoking 2015 Respiratory No cough 05/01/2016 Respiratory No dyspnea 05/01/2016 Gastrointestinal No abdominal pain 2015 Gastrointestinal No constipation 2015 Gastrointestinal No diarrhea 05/01/2016 Gastrointestinal gas and bloating 2015 Gastrointestinal gastroesophageal reflux 05/01/2016 Gastrointestinal No nausea 05/01/2016 Gastrointestinal No vomiting 05/01/2016 Genitourinary/Nephrology No breast complaint 05/01/2016 Genitourinary/Nephrology No dysuria 05/01 Genitourinary/Nephrology No hematuria Genitourinary/Nephrology No menopausal symptoms 05/01/2016 Genitourinary/Nephrology No nocturia Genitourinary/Nephrology No Pap smear abnormality 05/01/2016 Genitourinary/Nephrology No urinary urgency 05/01/2016 Genitourinary/Nephrology No urinary frequency 05/01/2016 Genitourinary/Nephrology No urinary incontinence 05/01/2016 Genitourinary/Nephrology No vaginal discharge 05/01/2016 Musculoskeletal No stiffness 05/01/2016 Musculoskeletal No swelling 05/01/2016 Musculoskeletal No joint complaint 2015 Musculoskeletal No muscle weakness 2015 Musculoskeletal No myalgias 05/01/2016 Dermatologic No rash 05/01/2016 Dermatologic No scar 05/01/2016 Neurologic No alteration of consciousness 05/01/2016 Psychiatric No anxiety 05/01/2016 Psychiatric No depression 05/01/2016 Constitutional No recent illness 2014 Constitutional No fatigue 09/07/2014 Constitutional No fever 09/07/2014 Constitutional No insomnia 09/07/2014 Eyes No eye discharge 09/07/2014 Eyes No eye erythema 09/07/2014 Ears/Nose/Throat/Neck No headache 2014 Ears/Nose/Throat/Neck No nasal discharge 09/07/2014 Cardiovascular No chest pain/pressure Cardiovascular No edema 09/07/2014 Cardiovascular No near-syncope/dizziness 09/07/2014 Cardiovascular No syncope 09/07/2014 Respiratory No productive sputum 2014 Respiratory No chest congestion 2014 Respiratory No chest tightness 2014 Respiratory No cigarette smoking 2014 Respiratory No cough 09/07/2014 Respiratory No dyspnea 09/07/2014 Gastrointestinal No abdominal pain 2014 Gastrointestinal No constipation 2014 Gastrointestinal No diarrhea 09/07/2014 Gastrointestinal gas and bloating 2014 Gastrointestinal gastroesophageal reflux 09/07/2014 Gastrointestinal No nausea 09/07/2014 Gastrointestinal No vomiting 09/07/2014 Genitourinary/Nephrology No breast complaint 09/07/2014 Genitourinary/Nephrology No dysuria 09/07 Genitourinary/Nephrology No hematuria Genitourinary/Nephrology No menopausal symptoms 09/07/2014 Genitourinary/Nephrology No nocturia Genitourinary/Nephrology No Pap smear abnormality 09/07/2014 Genitourinary/Nephrology No urinary urgency 09/07/2014 Genitourinary/Nephrology No urinary frequency 09/07/2014 Genitourinary/Nephrology No urinary incontinence 09/07/2014 Genitourinary/Nephrology No vaginal discharge 09/07/2014 Musculoskeletal No stiffness 09/07/2014 Musculoskeletal No swelling 09/07/2014 Musculoskeletal No joint complaint 2014 Musculoskeletal No muscle weakness 2014 Musculoskeletal No myalgias 09/07/2014 Dermatologic No rash 09/07/2014 Dermatologic No scar 09/07/2014 Neurologic No alteration of consciousness 09/07/2014 Psychiatric No anxiety 09/07/2014 Psychiatric No depression 09/07/2014 Constitutional No recent illness 2014 Cardiovascular No chest pain/pressure 11/2014 Cardiovascular No edema 06/16/2014 Ears/Nose/Throat/Neck No nasal discharge 06/16/2014 Respiratory No chest congestion 2014 Respiratory No cough 06/16/2014 Respiratory No cigarette smoking 2014 Gastrointestinal No vomiting 06/16/2014 Gastrointestinal No nausea 06/16/2014 Gastrointestinal No diarrhea 06/16/2014 Gastrointestinal No constipation 2014 Gastrointestinal No abdominal pain 2014 Genitourinary/Nephrology No dysuria 06/16 Psychiatric No anxiety 06/16/2014 Psychiatric No depression 06/16/2014 Dermatologic No rash 06/16/2014 Dermatologic No scar 06/16/2014 Musculoskeletal No stiffness 06/16/2014 Musculoskeletal No swelling 06/16/2014 Musculoskeletal No muscle weakness 2014 Musculoskeletal No myalgias 06/16/2014 Constitutional No fatigue 06/16/2014 Constitutional No fever 06/16/2014 Constitutional No insomnia 06/16/2014 Eyes No eye discharge 06/16/2014 Eyes No eye erythema 06/16/2014 Ears/Nose/Throat/Neck No headache 2014 Cardiovascular No near-syncope/dizziness 06/16/2014 Cardiovascular No syncope 06/16/2014 Respiratory No productive sputum 2014 Respiratory No chest tightness 2014 Respiratory No dyspnea 06/16/2014 Gastrointestinal gas and bloating 2014 Gastrointestinal gastroesophageal reflux 06/16/2014 Genitourinary/Nephrology No breast complaint 06/16/2014 Genitourinary/Nephrology No hematuria 11/2014 Genitourinary/Nephrology No menopausal symptoms 06/16/2014 Genitourinary/Nephrology No nocturia 11/2014 Genitourinary/Nephrology No Pap smear abnormality 06/16/2014 Genitourinary/Nephrology No urinary urgency 06/16/2014 Genitourinary/Nephrology No urinary frequency 06/16/2014 Genitourinary/Nephrology No urinary incontinence 06/16/2014 Genitourinary/Nephrology No vaginal discharge 06/16/2014 Musculoskeletal No joint complaint 2014 Neurologic No alteration of consciousness 06/16/2014 Constitutional No recent illness 2013 Constitutional No fatigue 12/16/2013 Constitutional No fever 12/16/2013 Constitutional No insomnia 12/16/2013 Eyes No eye discharge 12/16/2013 Eyes No eye erythema 12/16/2013 Ears/Nose/Throat/Neck No headache 2013 Cardiovascular No chest pain/pressure 01/2014 Cardiovascular No edema 12/16/2013 Cardiovascular No near-syncope/dizziness 12/16/2013 Cardiovascular No syncope 12/16/2013 Respiratory No productive sputum 2013 Respiratory No chest congestion 2013 Respiratory No chest tightness 2013 Respiratory No cough 12/16/2013 Respiratory No dyspnea 12/16/2013 Gastrointestinal No abdominal pain 2013 Gastrointestinal No constipation 2013 Gastrointestinal No diarrhea 12/16/2013 Gastrointestinal gas and bloating 2013 Gastrointestinal gastroesophageal reflux 12/16/2013 Genitourinary/Nephrology No urinary urgency 12/16/2013 Genitourinary/Nephrology No urinary frequency 12/16/2013 Genitourinary/Nephrology No urinary incontinence 12/16/2013 Genitourinary/Nephrology No vaginal discharge 12/16/2013 Musculoskeletal No joint complaint 2013 Neurologic No alteration of consciousness 12/16/2013 Psychiatric No anxiety 12/16/2013 Psychiatric No depression 12/16/2013 Constitutional No recent illness 2013 Constitutional No fatigue 08/14/2013 Constitutional No fever 08/14/2013 Constitutional No insomnia 08/14/2013 Eyes No eye discharge 08/14/2013 Eyes No eye erythema 08/14/2013 Ears/Nose/Throat/Neck No headache 2013 Cardiovascular No chest pain/pressure 11/2013 Cardiovascular No edema 08/14/2013 Cardiovascular No near-syncope/dizziness 08/14/2013 Cardiovascular No syncope 08/14/2013 Respiratory No productive sputum 2013 Respiratory No chest congestion 2013 Respiratory No chest tightness 2013 Respiratory No cough 08/14/2013 Respiratory No dyspnea 08/14/2013 Gastrointestinal No abdominal pain 2013 Gastrointestinal No constipation 2013 Gastrointestinal No diarrhea 08/14/2013 Genitourinary/Nephrology No breast complaint 08/14/2013 Genitourinary/Nephrology No dysuria 08/14 Genitourinary/Nephrology No hematuria 11/2013 Genitourinary/Nephrology No menopausal symptoms 08/14/2013 Genitourinary/Nephrology No nocturia 11/2013 Genitourinary/Nephrology No Pap smear abnormality 08/14/2013 Genitourinary/Nephrology No urinary urgency 08/14/2013 Genitourinary/Nephrology No urinary frequency 08/14/2013 Genitourinary/Nephrology No urinary incontinence 08/14/2013 Genitourinary/Nephrology No vaginal discharge 08/14/2013 Musculoskeletal No joint complaint 2013 Neurologic No alteration of consciousness 08/14/2013 Gastrointestinal gastroesophageal reflux 08/14/2013 Gastrointestinal gas and bloating 2013 Psychiatric No anxiety 08/14/2013 Psychiatric No depression 08/14/2013 Genitourinary/Nephrology No hematuria 09/2012 Genitourinary/Nephrology No urinary frequency 02/12/2013 Genitourinary/Nephrology No urinary incontinence 02/12/2013 Genitourinary/Nephrology No urinary urgency 02/12/2013 Genitourinary/Nephrology No vaginal discharge 02/12/2013 Genitourinary/Nephrology No menopausal symptoms 02/12/2013 Genitourinary/Nephrology No nocturia 09/2012 Genitourinary/Nephrology No Pap smear abnormality 02/12/2013 Musculoskeletal No joint complaint 2012 Neurologic No alteration of consciousness 02/12/2013 Constitutional No fatigue 02/12/2013 Constitutional No fever 02/12/2013 Constitutional No insomnia 02/12/2013 Constitutional No recent illness 2012 Eyes No eye discharge 02/12/2013 Eyes No eye erythema 02/12/2013 Ears/Nose/Throat/Neck No headache 2012 Cardiovascular No chest pain/pressure 09/2012 Cardiovascular No edema 02/12/2013 Cardiovascular No near-syncope/dizziness 02/12/2013 Cardiovascular No syncope 02/12/2013 Respiratory No chest congestion 2012 Respiratory No chest tightness 2012 Respiratory No cough 02/12/2013 Respiratory No dyspnea 02/12/2013 Respiratory No productive sputum 2012 Gastrointestinal No abdominal pain 2012 Gastrointestinal No constipation 2012 Gastrointestinal No diarrhea 02/12/2013 Genitourinary/Nephrology No breast complaint 02/12/2013 Genitourinary/Nephrology No dysuria 02/12 Physical Exam Exam Name System Name Item Name Status Result Effective Dates Notes Full Exam - General 1994 Constitutional general appearance Overall: well developed 09/20/2017 None Full Exam - General 1994 Constitutional general appearance Overall: in no acute distress 09/20/2017 None Full Exam - General 1994 Constitutional general appearance Overall: well nourished 09/20/2017 None Full Exam - General 1994 Eyes conjunctiva /eyelids Overall: conjunctiva clear 09/20/2017 None Full Exam - General 1994 Eyes conjunctiva /eyelids Overall: cornea clear 09/20/2017 None Full Exam - General 1994 Eyes conjunctiva /eyelids Overall: eyelids normal 09/20/2017 None Full Exam - General 1994 Ears/Nose/Throat lips/teeth/gingiva Overall: benign lips 09/20/2017 None Full Exam - General 1994 Ears/Nose/Throat oral cavity/pharynx/larynx Overall: oral mucosa clear 09/20/2017 None Full Exam - General 1994 Respiratory respiratory effort/rhythm Overall: normal rate 09/20/2017 None Full Exam - General 1994 Respiratory respiratory effort/rhythm Overall: no retractions 09/20/2017 None Full Exam - General 1994 Respiratory auscultation Overall: breath sounds clear bilaterally 09/20/2017 None Full Exam - General 1994 Cardiovascular auscultation of heart Overall: regular rate 09/20/2017 None Full Exam - General 1994 Cardiovascular auscultation of heart Rhythm: irregularly irregular rhythm 09/20/2017 None Full Exam - General 1994 Musculoskeletal head and neck Overall: head atraumatic 09/20/2017 None Full Exam - General 1994 Musculoskeletal gait and station Overall: normal station 09/20/2017 None Full Exam - General 1994 Musculoskeletal gait and station Overall: normal gait 09/20/2017 None Full Exam - General 1994 Neurologic cranial nerves Overall: crainial nerves 2 - 12 grossly intact 09/20/2017 None Full Exam - General 1994 Psychiatric orientation/consciousness Overall: oriented to person, place and time 09/20/2017 None Full Exam - General 1994 Psychiatric mood and affect Overall: normal mood and affect 09/20/2017 None Full Exam - General 1994 Psychiatric appearance Overall: well-groomed, good eye contact 09/20/2017 None Full Exam - ENT Constitutional general appearance Overall: well nourished 07/25/2017 None Full Exam - ENT Constitutional general appearance Overall: well developed 07/25/2017 None Full Exam - ENT Constitutional general appearance Overall: in no acute distress 07/25/2017 None Full Exam - ENT Ears/Nose/Throat otoscopic exam Overall: external auditory canals normal 07/25/2017 None Full Exam - ENT Ears/Nose/Throat otoscopic exam Left tympanic membrane: air -fluid level 07/25/2017 None Full Exam - ENT Ears/Nose/Throat otoscopic exam Right tympanic membrane: air-fluid level 07/25/2017 None Full Exam - ENT Ears/Nose/Throat lips/ teeth/gingiva Overall: benign lips 07/25/2017 None Full Exam - ENT Ears/Nose/Throat oropharynx Overall: oral mucosa clear 07/25/2017 None Full Exam - ENT Ears/Nose/Throat oropharynx Posterior Pharynx: clear post nasal drainage 07/25/2017 None Full Exam - ENT Ears/Nose/Throat oropharynx Posterior Pharynx: erythema 07/25/2017 None Full Exam - ENT Respiratory inspection Overall: no retractions 07/25/2017 None Full Exam - ENT Respiratory inspection Overall: normal rate None Full Exam - ENT Respiratory auscultation Overall: breath sounds clear bilaterally 07/25/2017 None Full Exam - ENT Cardiovascular auscultation of heart Rate: normal rate 07/25/2017 None Full Exam - ENT Cardiovascular auscultation of heart Rhythm: regular rhythm 07/25/2017 None Full Exam - ENT Lymphatic palpation of lymph nodes Overall: anterior cervical chain benign 07/25/2017 None Full Exam - ENT Lymphatic palpation of lymph nodes Overall: posterior cervical chain benign 07/25/2017 None Full Exam - ENT Neurologic mood and affect Overall: normal mood 07/25/2017 None Full Exam - ENT Neurologic mood and affect Overall: normal affect 07/25/2017 None Full Exam - ENT Neurologic orientation Overall: oriented to person, place and time 07/25/2017 None Full Exam - General 1994 Constitutional general appearance Development: well developed 02/14/2017 None Full Exam - General 1994 Constitutional general appearance Development: appears stated age 0902/14/2017 None Full Exam - General 1994 Constitutional general appearance Hygiene/Attention to Grooming: good hygiene 02/14/2017 None Full Exam - General 1994 Eyes conjunctiva /eyelids Overall: conjunctiva clear 02/14/2017 None Full Exam - General 1994 Eyes conjunctiva /eyelids Overall: cornea clear 02/14/2017 None Full Exam - General 1994 Eyes conjunctiva /eyelids Overall: eyelids normal 02/14/2017 None Full Exam - General 1994 Eyes pupils and irises Overall: pupils equal, round, reactive to light and accomodation 02/14/2017 None Full Exam - General 1994 Ears/Nose/Throat otoscopic exam Overall: external auditory canals clear 02/14/2017 None Full Exam - General 1994 Ears/Nose/Throat otoscopic exam Overall: tympanic membranes clear 02/14/2017 None Full Exam - General 1994 Ears/Nose/Throat lips/teeth/gingiva Overall: benign lips 02/14/2017 None Full Exam - General 1994 Ears/Nose/Throat lips/teeth/gingiva Overall: normal dentition 02/14/2017 None Full Exam - General 1994 Ears/Nose/Throat oral cavity/pharynx/larynx Overall: oral mucosa clear 02/14/2017 None Full Exam - General 1994 Ears/Nose/Throat oral cavity/pharynx/larynx Overall: oropharyngeal mucosa clear 02/14/2017 None Full Exam - General 1994 Respiratory auscultation Overall: breath sounds clear bilaterally 02/14/2017 None Full Exam - General 1994 Respiratory respiratory effort/rhythm Overall: no retractions 02/14/2017 None Full Exam - General 1994 Respiratory respiratory effort/rhythm Overall: normal rate 02/14/2017 None Full Exam - General 1994 Cardiovascular extremities Overall: no clubbing 02/14/2017 None Full Exam - General 1994 Cardiovascular auscultation of heart Overall: regular rate 02/14/2017 None Full Exam - General 1994 Cardiovascular auscultation of heart Overall: normal heart sounds 02/14/2017 None Full Exam - General 1994 Abdomen abdominal exam Overall: no tenderness 02/14/2017 None Full Exam - General 1994 Abdomen abdominal exam Overall: normal bowel sounds 02/14/2017 None Full Exam - General 1994 Lymphatic neck nodes Overall: anterior cervical chain benign 02/14/2017 None Full Exam - General 1994 Lymphatic neck nodes Overall: posterior cervical chain benign 02/14/2017 None Full Exam - General 1994 Neurologic deep tendon reflexes Overall: deep tendon reflexes intact 02/14/2017 None Full Exam - General 1994 Neurologic cranial nerves Overall: crainial nerves 2 - 12 grossly intact 02/14/2017 None Full Exam - General 1994 Psychiatric orientation/consciousness Overall: oriented to person, place and time 02/14/2017 None Full Exam - General 1994 Psychiatric mood and affect Overall: normal mood and affect 02/14/2017 None Full Exam - General 1994 Musculoskeletal upper extremity ROM - shoulder: crepitus 02/14/2017 None Full Exam - General 1994 Constitutional general appearance Overall: well developed 09/26/2016 None Full Exam - General 1994 Constitutional general appearance Overall: in no acute distress 09/26/2016 None Full Exam - General 1994 Constitutional general appearance Overall: well nourished 09/26/2016 None Full Exam - General 1994 Eyes conjunctiva /eyelids Overall: conjunctiva clear 09/26/2016 None Full Exam - General 1994 Eyes conjunctiva /eyelids Overall: eyelids normal 09/26/2016 None Full Exam - General 1994 Ears/Nose/Throat lips/teeth/gingiva Overall: benign lips 09/26/2016 None Full Exam - General 1994 Ears/Nose/Throat oral cavity/pharynx/larynx Overall: oral mucosa clear 09/26/2016 None Full Exam - General 1994 Respiratory auscultation Overall: breath sounds clear bilaterally 09/26/2016 None Full Exam - General 1994 Respiratory respiratory effort/rhythm Overall: no retractions 09/26/2016 None Full Exam - General 1994 Respiratory respiratory effort/rhythm Overall: normal rate 09/26/2016 None Full Exam - General 1994 Cardiovascular extremities Overall: no clubbing 09/26/2016 None Full Exam - General 1994 Cardiovascular auscultation of heart Overall: regular rate 09/26/2016 None Full Exam - General 1994 Cardiovascular auscultation of heart Overall: normal heart sounds 09/26/2016 None Full Exam - General 1994 Musculoskeletal head and neck Overall: head atraumatic 09/26/2016 None Full Exam - General 1994 Psychiatric orientation/consciousness Overall: oriented to person, place and time 09/26/2016 None Full Exam - General 1994 Psychiatric mood and affect Overall: normal mood and affect 09/26/2016 None Full Exam - General 1994 Psychiatric appearance Overall: well-groomed, good eye contact 09/26/2016 None Full Exam - General 1994 Constitutional general appearance Development: well developed 09/19/2016 None Full Exam - General 1994 Constitutional general appearance Development: appears stated age 0409/19/2016 None Full Exam - General 1994 Constitutional general appearance Hygiene/Attention to Grooming: good hygiene 09/19/2016 None Full Exam - General 1994 Eyes conjunctiva /eyelids Overall: conjunctiva clear 09/19/2016 None Full Exam - General 1994 Eyes conjunctiva /eyelids Overall: cornea clear 09/19/2016 None Full Exam - General 1994 Eyes conjunctiva /eyelids Overall: eyelids normal 09/19/2016 None Full Exam - General 1994 Eyes pupils and irises Overall: pupils equal, round, reactive to light and accomodation 09/19/2016 None Full Exam - General 1994 Ears/Nose/Throat otoscopic exam Overall: external auditory canals clear 09/19/2016 None Full Exam - General 1994 Ears/Nose/Throat otoscopic exam Overall: tympanic membranes clear 09/19/2016 None Full Exam - General 1994 Ears/Nose/Throat lips/teeth/gingiva Overall: benign lips 09/19/2016 None Full Exam - General 1994 Ears/Nose/Throat lips/teeth/gingiva Overall: normal dentition 09/19/2016 None Full Exam - General 1994 Ears/Nose/Throat oral cavity/pharynx/larynx Overall: oral mucosa clear 09/19/2016 None Full Exam - General 1994 Ears/Nose/Throat oral cavity/pharynx/larynx Overall: oropharyngeal mucosa clear 09/19/2016 None Full Exam - General 1994 Respiratory auscultation Overall: breath sounds clear bilaterally 09/19/2016 None Full Exam - General 1994 Respiratory respiratory effort/rhythm Overall: no retractions 09/19/2016 None Full Exam - General 1994 Respiratory respiratory effort/rhythm Overall: normal rate 09/19/2016 None Full Exam - General 1994 Cardiovascular extremities Overall: no clubbing 09/19/2016 None Full Exam - General 1994 Cardiovascular auscultation of heart Overall: regular rate 09/19/2016 None Full Exam - General 1994 Cardiovascular auscultation of heart Overall: normal heart sounds 09/19/2016 None Full Exam - General 1994 Abdomen abdominal exam Overall: no tenderness 09/19/2016 None Full Exam - General 1994 Abdomen abdominal exam Overall: normal bowel sounds 09/19/2016 None Full Exam - General 1994 Lymphatic neck nodes Overall: anterior cervical chain benign 09/19/2016 None Full Exam - General 1994 Lymphatic neck nodes Overall: posterior cervical chain benign 09/19/2016 None Full Exam - General 1994 Neurologic deep tendon reflexes Overall: deep tendon reflexes intact 09/19/2016 None Full Exam - General 1994 Neurologic cranial nerves Overall: crainial nerves 2 - 12 grossly intact 09/19/2016 None Full Exam - General 1994 Psychiatric orientation/consciousness Overall: oriented to person, place and time 09/19/2016 None Full Exam - General 1994 Psychiatric mood and affect Overall: normal mood and affect 09/19/2016 None Full Exam - General 1994 Musculoskeletal upper extremity Palpation - shoulder: pain with resisted biceps flexion 09/19/2016 None Full Exam - General 1994 Constitutional general appearance Development: well developed 05/01/2016 None Full Exam - General 1994 Constitutional general appearance Development: appears stated age 1105/01/2016 None Full Exam - General 1994 Constitutional general appearance Hygiene/Attention to Grooming: good hygiene 05/01/2016 None Full Exam - General 1994 Eyes conjunctiva /eyelids Overall: conjunctiva clear 05/01/2016 None Full Exam - General 1994 Eyes conjunctiva /eyelids Overall: cornea clear 05/01/2016 None Full Exam - General 1994 Eyes conjunctiva /eyelids Overall: eyelids normal 05/01/2016 None Full Exam - General 1994 Eyes pupils and irises Overall: pupils equal, round, reactive to light and accomodation 05/01/2016 None Full Exam - General 1994 Ears/Nose/Throat otoscopic exam Overall: external auditory canals clear 05/01/2016 None Full Exam - General 1994 Ears/Nose/Throat otoscopic exam Overall: tympanic membranes clear 05/01/2016 None Full Exam - General 1994 Ears/Nose/Throat lips/teeth/gingiva Overall: benign lips 05/01/2016 None Full Exam - General 1994 Ears/Nose/Throat lips/teeth/gingiva Overall: normal dentition 05/01/2016 None Full Exam - General 1994 Ears/Nose/Throat oral cavity/pharynx/larynx Overall: oral mucosa clear 05/01/2016 None Full Exam - General 1994 Ears/Nose/Throat oral cavity/pharynx/larynx Overall: oropharyngeal mucosa clear 05/01/2016 None Full Exam - General 1994 Respiratory auscultation Overall: breath sounds clear bilaterally 05/01/2016 None Full Exam - General 1994 Respiratory respiratory effort/rhythm Overall: no retractions 05/01/2016 None Full Exam - General 1994 Respiratory respiratory effort/rhythm Overall: normal rate 05/01/2016 None Full Exam - General 1994 Cardiovascular extremities Overall: no clubbing 05/01/2016 None Full Exam - General 1994 Cardiovascular auscultation of heart Overall: regular rate 05/01/2016 None Full Exam - General 1994 Cardiovascular auscultation of heart Overall: normal heart sounds 05/01/2016 None Full Exam - General 1994 Abdomen abdominal exam Overall: no tenderness 05/01/2016 None Full Exam - General 1994 Abdomen abdominal exam Overall: normal bowel sounds 05/01/2016 None Full Exam - General 1994 Lymphatic neck nodes Overall: anterior cervical chain benign 05/01/2016 None Full Exam - General 1994 Lymphatic neck nodes Overall: posterior cervical chain benign 05/01/2016 None Full Exam - General 1994 Neurologic deep tendon reflexes Overall: deep tendon reflexes intact 05/01/2016 None Full Exam - General 1994 Neurologic cranial nerves Overall: crainial nerves 2 - 12 grossly intact 05/01/2016 None Full Exam - General 1994 Psychiatric orientation/consciousness Overall: oriented to person, place and time 05/01/2016 None Full Exam - General 1994 Psychiatric mood and affect Overall: normal mood and affect 05/01/2016 None Full Exam - General 1994 Constitutional general appearance Development: well developed 09/07/2014 None Full Exam - General 1994 Constitutional general appearance Development: appears stated age 0309/07/2014 None Full Exam - General 1994 Constitutional general appearance Hygiene/Attention to Grooming: good hygiene 09/07/2014 None Full Exam - General 1994 Eyes conjunctiva /eyelids Overall: conjunctiva clear 09/07/2014 None Full Exam - General 1994 Eyes conjunctiva /eyelids Overall: cornea clear 09/07/2014 None Full Exam - General 1994 Eyes conjunctiva /eyelids Overall: eyelids normal 09/07/2014 None Full Exam - General 1994 Eyes pupils and irises Overall: pupils equal, round, reactive to light and accomodation 09/07/2014 None Full Exam - General 1994 Ears/Nose/Throat otoscopic exam Overall: external auditory canals clear 09/07/2014 None Full Exam - General 1994 Ears/Nose/Throat otoscopic exam Overall: tympanic membranes clear 09/07/2014 None Full Exam - General 1994 Ears/Nose/Throat lips/teeth/gingiva Overall: benign lips 09/07/2014 None Full Exam - General 1994 Ears/Nose/Throat lips/teeth/gingiva Overall: normal dentition 09/07/2014 None Full Exam - General 1994 Ears/Nose/Throat oral cavity/pharynx/larynx Overall: oral mucosa clear 09/07/2014 None Full Exam - General 1994 Ears/Nose/Throat oral cavity/pharynx/larynx Overall: oropharyngeal mucosa clear 09/07/2014 None Full Exam - General 1994 Respiratory auscultation Overall: breath sounds clear bilaterally 09/07/2014 None Full Exam - General 1994 Respiratory respiratory effort/rhythm Overall: no retractions 09/07/2014 None Full Exam - General 1994 Respiratory respiratory effort/rhythm Overall: normal rate 09/07/2014 None Full Exam - General 1994 Cardiovascular extremities Overall: no clubbing 09/07/2014 None Full Exam - General 1994 Cardiovascular auscultation of heart Overall: regular rate 09/07/2014 None Full Exam - General 1994 Cardiovascular auscultation of heart Overall: normal heart sounds 09/07/2014 None Full Exam - General 1994 Abdomen abdominal exam Overall: no tenderness 09/07/2014 None Full Exam - General 1994 Abdomen abdominal exam Overall: normal bowel sounds 09/07/2014 None Full Exam - General 1994 Lymphatic neck nodes Overall: anterior cervical chain benign 09/07/2014 None Full Exam - General 1994 Lymphatic neck nodes Overall: posterior cervical chain benign 09/07/2014 None Full Exam - General 1994 Neurologic deep tendon reflexes Overall: deep tendon reflexes intact 09/07/2014 None Full Exam - General 1994 Neurologic cranial nerves Overall: crainial nerves 2 - 12 grossly intact 09/07/2014 None Full Exam - General 1994 Psychiatric orientation/consciousness Overall: oriented to person, place and time 09/07/2014 None Full Exam - General 1994 Psychiatric mood and affect Overall: normal mood and affect 09/07/2014 None Full Exam - General 1994 Constitutional general appearance Development: well developed 06/16/2014 None Full Exam - General 1994 Constitutional general appearance Development: appears stated age 0106/16/2014 None Full Exam - General 1994 Constitutional general appearance Hygiene/Attention to Grooming: good hygiene 06/16/2014 None Full Exam - General 1994 Eyes conjunctiva /eyelids Overall: conjunctiva clear 06/16/2014 None Full Exam - General 1994 Eyes conjunctiva /eyelids Overall: cornea clear 06/16/2014 None Full Exam - General 1994 Eyes conjunctiva /eyelids Overall: eyelids normal 06/16/2014 None Full Exam - General 1994 Eyes pupils and irises Overall: pupils equal, round, reactive to light and accomodation 06/16/2014 None Full Exam - General 1994 Ears/Nose/Throat otoscopic exam Overall: external auditory canals clear 06/16/2014 None Full Exam - General 1994 Ears/Nose/Throat otoscopic exam Overall: tympanic membranes clear 06/16/2014 None Full Exam - General 1994 Ears/Nose/Throat lips/teeth/gingiva Overall: benign lips 06/16/2014 None Full Exam - General 1994 Ears/Nose/Throat lips/teeth/gingiva Overall: normal dentition 06/16/2014 None Full Exam - General 1994 Ears/Nose/Throat oral cavity/pharynx/larynx Overall: oral mucosa clear 06/16/2014 None Full Exam - General 1994 Ears/Nose/Throat oral cavity/pharynx/larynx Overall: oropharyngeal mucosa clear 06/16/2014 None Full Exam - General 1994 Respiratory auscultation Overall: breath sounds clear bilaterally 06/16/2014 None Full Exam - General 1994 Respiratory respiratory effort/rhythm Overall: no retractions 06/16/2014 None Full Exam - General 1994 Respiratory respiratory effort/rhythm Overall: normal rate 06/16/2014 None Full Exam - General 1994 Cardiovascular extremities Overall: no clubbing 06/16/2014 None Full Exam - General 1994 Cardiovascular auscultation of heart Overall: regular rate 06/16/2014 None Full Exam - General 1994 Cardiovascular auscultation of heart Overall: normal heart sounds 06/16/2014 None Full Exam - General 1994 Abdomen abdominal exam Overall: no tenderness 06/16/2014 None Full Exam - General 1994 Abdomen abdominal exam Overall: normal bowel sounds 06/16/2014 None Full Exam - General 1994 Neurologic deep tendon reflexes Overall: deep tendon reflexes intact 06/16/2014 None Full Exam - General 1994 Neurologic cranial nerves Overall: crainial nerves 2 - 12 grossly intact 06/16/2014 None Full Exam - General 1994 Psychiatric orientation/consciousness Overall: oriented to person, place and time 06/16/2014 None Full Exam - General 1994 Psychiatric mood and affect Overall: normal mood and affect 06/16/2014 None Full Exam - General 1994 Lymphatic neck nodes Overall: anterior cervical chain benign 06/16/2014 None Full Exam - General 1994 Lymphatic neck nodes Overall: posterior cervical chain benign 06/16/2014 None Full Exam - General 1994 Constitutional general appearance Development: well developed 12/16/2013 None Full Exam - General 1994 Constitutional general appearance Development: appears stated age 0712/16/2013 None Full Exam - General 1994 Constitutional general appearance Hygiene/Attention to Grooming: good hygiene 12/16/2013 None Full Exam - General 1994 Eyes conjunctiva /eyelids Overall: conjunctiva clear 12/16/2013 None Full Exam - General 1994 Eyes conjunctiva /eyelids Overall: cornea clear 12/16/2013 None Full Exam - General 1994 Eyes conjunctiva /eyelids Overall: eyelids normal 12/16/2013 None Full Exam - General 1994 Eyes pupils and irises Overall: pupils equal, round, reactive to light and accomodation 12/16/2013 None Full Exam - General 1994 Ears/Nose/Throat otoscopic exam Overall: external auditory canals clear 12/16/2013 None Full Exam - General 1994 Ears/Nose/Throat otoscopic exam Overall: tympanic membranes clear 12/16/2013 None Full Exam - General 1994 Ears/Nose/Throat lips/teeth/gingiva Overall: benign lips 12/16/2013 None Full Exam - General 1994 Ears/Nose/Throat lips/teeth/gingiva Overall: normal dentition 12/16/2013 None Full Exam - General 1994 Ears/Nose/Throat oral cavity/pharynx/larynx Overall: oral mucosa clear 12/16/2013 None Full Exam - General 1995 Ears/Nose/Throat oral cavity/pharynx/larynx Overall: oropharyngeal mucosa clear 12/16/2013 None Full Exam - General 1994 Respiratory auscultation Overall: breath sounds clear bilaterally 12/16/2013 None Full Exam - General 1994 Respiratory respiratory effort/rhythm Overall: no retractions 12/16/2013 None Full Exam - General 1994 Respiratory respiratory effort/rhythm Overall: normal rate 12/16/2013 None Full Exam - General 1994 Cardiovascular extremities Overall: no clubbing 12/16/2013 None Full Exam - General 1994 Cardiovascular auscultation of heart Overall: regular rate 12/16/2013 None Full Exam - General 1994 Cardiovascular auscultation of heart Overall: normal heart sounds 12/16/2013 None Full Exam - General 1994 Abdomen abdominal exam Overall: no tenderness 12/16/2013 None Full Exam - General 1994 Abdomen abdominal exam Overall: normal bowel sounds 12/16/2013 None Full Exam - General 1994 Neurologic deep tendon reflexes Overall: deep tendon reflexes intact 12/16/2013 None Full Exam - General 1994 Neurologic cranial nerves Overall: crainial nerves 2 - 12 grossly intact 12/16/2013 None Full Exam - General 1994 Psychiatric orientation/consciousness Overall: oriented to person, place and time 12/16/2013 None Full Exam - General 1994 Psychiatric mood and affect Overall: normal mood and affect 12/16/2013 None Full Exam - General 1994 Constitutional general appearance Development: appears stated age 0308/14/2013 None Full Exam - General 1994 Constitutional general appearance Development: well developed 08/14/2013 None Full Exam - General 1994 Constitutional general appearance Hygiene/Attention to Grooming: good hygiene 08/14/2013 None Full Exam - General 1994 Eyes conjunctiva /eyelids Overall: conjunctiva clear 08/14/2013 None Full Exam - General 1994 Eyes conjunctiva /eyelids Overall: cornea clear 08/14/2013 None Full Exam - General 1994 Eyes conjunctiva /eyelids Overall: eyelids normal 08/14/2013 None Full Exam - General 1994 Eyes pupils and irises Overall: pupils equal, round, reactive to light and accomodation 08/14/2013 None Full Exam - General 1994 Ears/Nose/Throat otoscopic exam Overall: external auditory canals clear 08/14/2013 None Full Exam - General 1994 Ears/Nose/Throat otoscopic exam Overall: tympanic membranes clear 08/14/2013 None Full Exam - General 1994 Ears/Nose/Throat lips/teeth/gingiva Overall: benign lips 08/14/2013 None Full Exam - General 1995 Ears/Nose/Throat lips/teeth/gingiva Overall: normal dentition 08/14/2013 None Full Exam - General 1994 Ears/Nose/Throat oral cavity/pharynx/larynx Overall: oral mucosa clear 08/14/2013 None Full Exam - General 1994 Ears/Nose/Throat oral cavity/pharynx/larynx Overall: oropharyngeal mucosa clear 08/14/2013 None Full Exam - General 1994 Respiratory auscultation Overall: breath sounds clear bilaterally 08/14/2013 None Full Exam - General 1994 Respiratory respiratory effort/rhythm Overall: no retractions 08/14/2013 None Full Exam - General 1994 Respiratory respiratory effort/rhythm Overall: normal rate 08/14/2013 None Full Exam - General 1994 Cardiovascular extremities Overall: no clubbing 08/14/2013 None Full Exam - General 1994 Cardiovascular auscultation of heart Overall: normal heart sounds 08/14/2013 None Full Exam - General 1994 Cardiovascular auscultation of heart Overall: regular rate 08/14/2013 None Full Exam - General 1994 Abdomen abdominal exam Overall: no tenderness 08/14/2013 None Full Exam - General 1994 Abdomen abdominal exam Overall: normal bowel sounds 08/14/2013 None Full Exam - General 1994 Neurologic deep tendon reflexes Overall: deep tendon reflexes intact 08/14/2013 None Full Exam - General 1994 Neurologic cranial nerves Overall: crainial nerves 2 - 12 grossly intact 08/14/2013 None Full Exam - General 1994 Psychiatric orientation/consciousness Overall: oriented to person, place and time 08/14/2013 None Full Exam - General 1994 Psychiatric mood and affect Overall: normal mood and affect 08/14/2013 None Full Exam - Genitourinary/Female Musculoskeletal gait and station Overall: normal station 02/12/2013 None Full Exam - Genitourinary/Female Integument inspection and palpation of skin Overall: no rash, lesions 02/12/2013 None Full Exam - Genitourinary/Female Neurologic mood and affect Overall: normal mood 02/12/2013 None Full Exam - Genitourinary/Female Neurologic mood and affect Overall: normal affect 02/12/2013 None Full Exam - Genitourinary/Female Neurologic orientation Overall: oriented to person, place and time 02/12/2013 None Full Exam - Genitourinary/Female Psychiatric orientation/consciousness Overall: oriented to person, place and time 02/12/2013 None Full Exam - Genitourinary/Female Ears/Nose/Throat oral cavity/pharynx/larynx Overall: oral mucosa clear 02/12/2013 None Full Exam - Genitourinary/Female Respiratory auscultation Overall: breath sounds clear bilaterally 02/12/2013 None Full Exam - Genitourinary/Female Respiratory respiratory effort/rhythm Overall: no retractions 02/12/2013 None Full Exam - Genitourinary/Female Respiratory respiratory effort/rhythm Overall: normal rate 02/12/2013 None Full Exam - Genitourinary/Female Cardiovascular auscultation of heart Overall: regular rate 02/12/2013 None Full Exam - Genitourinary/Female Cardiovascular auscultation of heart Overall: normal heart sounds 02/12/2013 None Full Exam - Genitourinary/Female Cardiovascular examination of vasculature Overall: no clubbing, cyanosis, edema 02/12/2013 None Full Exam - Genitourinary/Female Abdomen abdominal exam Overall: non tender, non distended 02/12/2013 None Full Exam - Genitourinary/Female Abdomen abdominal exam Overall: normal bowel sounds 02/12/2013 None Full Exam - Genitourinary/Female Abdomen abdominal exam Overall: no mass lesions 02/12/2013 None Full Exam - Genitourinary/Female Lymphatic inspection and palpation of nodes Overall: anterior cervical chain benign 02/12/2013 None Full Exam - Genitourinary/Female Lymphatic inspection and palpation of nodes Overall: posterior cervical chain benign 02/12/2013 None Full Exam - Genitourinary/Female Musculoskeletal head and neck Overall: head atraumatic 02/12/2013 None Full Exam - Genitourinary/Female Musculoskeletal gait and station Overall: normal gait 02/12/2013 None Full Exam - Genitourinary/Female Constitutional general appearance Overall: well nourished 02/12/2013 None Full Exam - Genitourinary/Female Constitutional general appearance Overall: well developed 02/12/2013 None Full Exam - Genitourinary/Female Constitutional general appearance Overall: in no acute distress 02/12/2013 None Full Exam - Genitourinary/Female Eyes conjunctiva/eyelids Overall: conjunctiva clear 02/12/2013 None Full Exam - Genitourinary/Female Eyes pupils and irises Overall: pupils equal, round, reactive to light and accomodation 02/12/2013 None Full Exam - Genitourinary/Female Ears/Nose/Throat otoscopic exam Overall: external auditory canals clear 02/12/2013 None Full Exam - Genitourinary/Female Ears/Nose/Throat otoscopic exam Overall: tympanic membranes clear 02/12/2013 None Procedures Procedure Codes Date INITIAL PREVENTIVE EXAM CPT-4: G0402 09/26/2016 Vital Signs Date Vital 09/20/2017 Blood Pressure 1: 120/72 Code : 8480-6 BMI: 35.0 Code : 84945-7 Heart Rate 1 : 82 bpm Height: 5' SpO2: 96% Weight: 182 lbs 07/25/2017 Blood Pressure 1: 122/76 Code : 8480-6 BMI: 34.6 Code : 11762-7 Heart Rate 1 : 79 bpm Height: 5' SpO2: 98% Temperature: 36.7 (C) / 98.1 (F) Weight: 180 lbs 02/14/2017 Blood Pressure 1: 136/80 Code : 8480-6 BMI: 35.7 Code : 40443-1 Heart Rate 1 : 67 bpm Height: 5' SpO2: 99% Weight: 186 lbs 09/26/2016 Blood Pressure 1: 128/70 Code : 8480-6 BMI: 36.7 Code : 17651-2 Heart Rate 1 : 75 bpm Height: 5' SpO2: 95% Waist Measure (cm): 112 cm Weight: 191 lbs 09/19/2016 Blood Pressure 1: 144/82 Code : 8480-6 BMI: 35.9 Code : 37804-6 Heart Rate 1 : 70 bpm Height: 5' SpO2: 97% Weight: 187 lbs 05/01/2016 Blood Pressure 1: 116/72 Code : 8480-6 BMI: 35.7 Code : 90615-0 Heart Rate 1 : 75 bpm Height: 5' SpO2: 98% Weight: 186 lbs 09/07/2014 Blood Pressure 1: 122/72 Code : 8480-6 BMI: 34.8 Code : 13859-7 Heart Rate 1 : 68 bpm Height: 5' Weight: 181 lbs 06/16/2014 Blood Pressure 1: 124/72 Code : 8480-6 BMI: 35.2 Code : 99377-2 Heart Rate 1 : 68 bpm Height: 5' Weight: 183 lbs 12/17/2013 Blood Pressure 1: 144/88 Code : 8480-6 12/16/2013 Blood Pressure 1: 148/92 Code : 8480-6 BMI: 35.9 Code : 76003-0 Heart Rate 1 : 60 bpm Height: 5' Weight: 187 lbs 08/14/2013 Blood Pressure 1: 116/70 Code : 8480-6 BMI: 35.7 Code : 88666-0 Heart Rate 1 : 76 bpm Height: 5' Weight: 186 lbs 02/12/2013 Blood Pressure 1: 132/80 Code : 8480-6 BMI: 36.3 Code : 48458-4 Heart Rate 1 : 68 bpm Height: 5' Weight: 189 lbs Functional Status No Functional Status data History of Present Illness Symptom Name Status Result Effective Date Notes arrhythmia Quality irregular beats 09/20/2017 None arrhythmia Onset and Resolution sudden in onset 09/20/2017 None sore throat Quality acute 07/25/2017 None sore throat Onset and Resolution sudden in onset 07/25/2017 None sore throat Onset of Symptom 2 days ago 07/25/2017 None earache Location both ears 07/25/2017 None earache Quality acute 07/25/2017 None earache Onset and Resolution sudden in onset 07/25/2017 None earache Onset of Symptom 2 days ago 07/25/2017 None shoulder pain Location on the right shoulder 02/14/2017 None shoulder pain Quality intermittent 02/14/2017 None shoulder pain Onset of Symptom 11 months ago 02/14/2017 None shoulder pain Limitation on Activities does not limit activities 02/14/2017 None shoulder pain Limitation on Activities lacks active range of motion 02/14/2017 None shoulder pain Frequency of Episodes daily 02/14/2017 None shoulder pain Alleviating Factors rest 02/14/2017 None shoulder pain Exacerbating Factors lifting 02/14/2017 None shoulder pain Exacerbating Factors pulling 02/14/2017 None shoulder pain Exacerbating Factors abduction/external rotation 02/14/2017 None shoulder pain Exacerbating Factors internal rotation 02/14/2017 None shoulder pain Pertinent Findings limited range of motion 02/14/2017 None shoulder pain Onset and Resolution resolved 02/14/2017 None hypothyroid Onset and Resolution ongoing 02/14/2017 None hypothyroid Alleviating Factors medication 02/14/2017 None hypertension Onset and Resolution ongoing 02/14/2017 None hypertension Onset of Symptom during adulthood 02/14/2017 None hypertension Blood Pressure Values patient checking blood pressure at home - did not bring in readings 02/14/2017 -Checks occasionallly hypertension Pertinent Findings Denies dizziness 02/14/2017 None hypertension Pertinent Findings Denies dyspnea 02/14/2017 None hypertension Pertinent Findings Denies edema 02/14/2017 None Annual Medicare Wellness Exam Alcohol Use does not drink any alcohol 09/26/2016 None Annual Medicare Wellness Exam Aspirin Use no 09/26/2016 None Annual Medicare Wellness Exam Blood Glucose (self reported) don't know 09/26/2016 None Annual Medicare Wellness Exam Blood Pressure (self reported ) low / normal (120/80) 09/26/2016 None Annual Medicare Wellness Exam Cholesterol (self reported) don't know 09/26/2016 None Annual Medicare Wellness Exam Depression (last 6 months) almost never 09/26/2016 None Annual Medicare Wellness Exam Depression or Hopelessness almost never 09/26/2016 None Annual Medicare Wellness Exam Describe Your Health good 09/26/2016 None Annual Medicare Wellness Exam Exercise Habits does not exercise 09/26/2016 None Annual Medicare Wellness Exam Handling Stress usually sudheer effectively 09/26/2016 None Annual Medicare Wellness Exam Hemaglobin A-1C (self reported ) don't know 09/26/2016 None Annual Medicare Wellness Exam Hours of Sleep 7 09/26/2016 None Annual Medicare Wellness Exam Interaction with Friends yes 09/26/2016 None Annual Medicare Wellness Exam Interests & Pleasure almost all of the time 09/26/2016 None Annual Medicare Wellness Exam Life Satisfaction very satisfied 09/26/2016 None Annual Medicare Wellness Exam Motor Vehicle Safety always fastens seat belt: y 09/26/2016 None Annual Medicare Wellness Exam Motor Vehicle Safety drives after drinking: n 09/26/2016 None Annual Medicare Wellness Exam Motor Vehicle Safety rides with someone who has been drinking: n 2016 None Annual Medicare Wellness Exam Nutrition servings of fried food / high fat foods per day: 1 2016 None Annual Medicare Wellness Exam Nutrition servings of high fiber / whole grain per day: 1 09/26/2016 None Annual Medicare Wellness Exam Nutrition servings of vegetables / fruit per day: 3 09/26/2016 None Annual Medicare Wellness Exam Smoking and Tobacco Use non smoker 09/26/2016 None Annual Medicare Wellness Exam Social & Emotional Support always 09/26/2016 None Annual Medicare Wellness Exam Stress almost never 09/26/2016 None Annual Medicare Wellness Exam Sun Exposure protects skin when outdoors: y 09/26/2016 None shoulder pain Location on the right shoulder 09/19/2016 None shoulder pain Quality intermittent 09/19/2016 None shoulder pain Onset and Resolution ongoing 09/19/2016 None shoulder pain Limitation on Activities lacks active range of motion 09/19/2016 None shoulder pain Frequency of Episodes daily 09/19/2016 None shoulder pain Mechanism of injury fall onto the shoulder 09/19/2016 None shoulder pain Alleviating Factors rest 09/19/2016 None shoulder pain Limitation on Activities does not limit activities 09/19/2016 None shoulder pain Exacerbating Factors lifting 09/19/2016 None shoulder pain Exacerbating Factors pulling 09/19/2016 None shoulder pain Exacerbating Factors abduction/external rotation 09/19/2016 None shoulder pain Exacerbating Factors internal rotation 09/19/2016 None shoulder pain Pertinent Findings limited range of motion 09/19/2016 None shoulder pain Onset of Symptom 11 months ago 09/19/2016 None hypothyroid Onset and Resolution ongoing 05/01/2016 None hypothyroid Alleviating Factors medication 05/01/2016 None hypertension Onset and Resolution ongoing 05/01/2016 None hypertension Onset of Symptom during adulthood 05/01/2016 None hypertension Blood Pressure Values patient checking blood pressure at home - did not bring in readings 05/01/2016 -Checks occasionallly hypertension Pertinent Findings Denies dizziness 05/01/2016 None hypertension Pertinent Findings Denies dyspnea 05/01/2016 None hypertension Pertinent Findings Denies edema 05/01/2016 None hypertension Onset and Resolution ongoing 09/07/2014 None hypertension Blood Pressure Values patient checking blood pressure at home - did not bring in readings 09/07/2014 None hypertension Severity mild 09/07/2014 None hypertension Triggers no known associated factors 09/07/2014 None hypertension Alleviating Factors medication 09/07/2014 None hypertension Pertinent Findings Denies dizziness 09/07/2014 None hypertension Pertinent Findings Denies dyspnea 09/07/2014 None hypertension Pertinent Findings Denies edema 09/07/2014 None medication follow up Additional Comments medication: levothyroxine 09/07/2014 reports that she cant tell a difference hypertension Onset and Resolution ongoing 06/16/2014 None hypertension Pertinent Findings Denies dizziness 06/16/2014 None hypertension Pertinent Findings Denies dyspnea 06/16/2014 None hypertension Pertinent Findings Denies edema 06/16/2014 None hypertension Blood Pressure Values patient checking blood pressure at home - did not bring in readings 06/16/2014 160/70 were pressures on auto cuff hypertension Severity mild 06/16/2014 None hypertension Triggers no known associated factors 06/16/2014 None hypertension Alleviating Factors medication 06/16/2014 None gastroesophageal reflux Quality chronic 12/16/2013 None gastroesophageal reflux Onset and Resolution ongoing 12/16/2013 states the medicine is working gastroesophageal reflux Onset of Symptom during adulthood 12/16/2013 None gastroesophageal reflux Diet includes spicy foods 12/16/2013 None gastroesophageal reflux Alleviating Factors proton pump inhibitor 12/16/2013 None gastroesophageal reflux Quality acute 08/14/2013 None gastroesophageal reflux Onset and Resolution gradual in onset 08/14/2013 None gastroesophageal reflux Onset of Symptom 9 months ago 08/14/2013 None gastroesophageal reflux Pertinent Findings heartburn 08/14/2013 also burping states when she lays down has to prop herself up gastroesophageal reflux Pertinent Findings bloating 08/14/2013 None gastroesophageal reflux Pertinent Findings Denies nausea 08/14/2013 None gastroesophageal reflux Pertinent Findings Denies hoarseness 08/14/2013 None gastroesophageal reflux Pertinent Findings dyspnea 08/14/2013 None gastroesophageal reflux Severity moderate 08/14/2013 None gastroesophageal reflux Frequency of Episodes increasing 08/14/2013 None gastroesophageal reflux Diet includes caffeine 08/14/2013 via POP (tries not to drink it after 5pm), coffee (3-4 cups, but none after noon) gastroesophageal reflux Triggers heartburn 08/14/2013 None gastroesophageal reflux Triggers recumbent position 08/14/2013 None well woman exam (40-65 years) Control hysterectomy 02/12/2013 None well woman exam (40-65 years) Cardiovascular Risk Factors family history of cardiovascular disease None well woman exam (40-65 years) Cardiovascular Risk Factors obesity 02/12/2013 None well woman exam (40-65 years) Health Guidance depression symptoms 02/12/2013 None well woman exam (40-65 years) Immunizations influenza vaccine (annually over 50 y.o.) 02/12/2013 None well woman exam (40-65 years) Lifestyle no history of physical abuse 02/12/2013 None well woman exam (40-65 years) Nutrition and Exercise no exercise 02/12/2013 None well woman exam (40-65 years) Nutrition and Exercise overweight 02/12/2013 None well woman exam (40-65 years) Nutrition and Exercise regular diet 02/12/2013 None well woman exam (40-65 years) Sexual Activity is not sexually active 02/12/2013 None Advance Directives No Advance Directive data Encounters Encounter Performer Location Codes Date EST. PATIENT, LEVEL III Diagnosis: Cardiac arrhythmia, unspecified[ICD10: I49.9] [facility] CPT-[facility]: 17915 09/20/2017 08048 EST. PATIENT, LEVEL III Diagnosis: Acute laryngopharyngitis[ICD10: J06.0] Diagnosis: Other allergic rhinitis[ICD10: J30.89] [facility] CPT-4: 94990 07/25/2017 ([id number]) [id number] EST. PATIENT, LEVEL IV Diagnosis: Atrophy of thyroid (acquired)[ICD10: E03.4] Diagnosis: Essential (primary) hypertension[ICD10: I10] Diagnosis: Age-related osteoporosis without current pathological fracture[ICD10 : M81.0] Diagnosis: Pain in right shoulder[ICD10: M25.511] [facility] CPT-4: 05511 02/14/2017 ([id number]) [id number] EST. PATIENT, LEVEL IV Diagnosis: Atrophy of thyroid (acquired)[ICD10: E03.4] Diagnosis: Essential (primary) hypertension[ICD10: I10] Diagnosis: Pain in right shoulder[ICD10: M25.511] [facility] CPT-4: 14552 09/19/2016 ([id number]) [id number] EST. PATIENT, LEVEL IV Diagnosis: Essential (primary) hypertension[ICD10: I10] Diagnosis: Atrophy of thyroid (acquired)[ICD10: E03.4] [facility] CPT-4: 48616 05/01/2016 ([id number]) [id number] EST. PATIENT, LEVEL III Diagnosis: ESSENTIAL HYPERTENSION[ICD9: 401.9] Diagnosis: Adult hypothyroidism[ICD9: 244.9] [facility] CPT-4: 86784 09/07/2014 ([id number]) [id number] EST. PATIENT, LEVEL IV Diagnosis: ESSENTIAL HYPERTENSION[ICD9: 401.9] Diagnosis: ESOPHAGEAL REFLUX[ICD9: 530.81] Diagnosis: OBESITY[ICD9: 278.00] [facility], [facility] CPT-4: 42555 06/16/2014 ([id number]) Miscellaneous no charge Diagnosis: Elevated blood pressure[ICD9: 796.2] STEPHANIE Mesa MD CPT-4: 92006 12/17/2013 ([id number]) 28089 EST. PATIENT, LEVEL III Diagnosis: ESOPHAGEAL REFLUX[ICD9: 530.81] STEPHANIE Mesa MD CPT- 4: 78401 12/16/2013 ([id number]) [id number] EST. PATIENT, LEVEL III Diagnosis: ESOPHAGEAL REFLUX[ICD9: 530.81] Diagnosis: OBESITY[ICD9: 278.00] Diagnosis: Dietary counseling[ICD9: V65.3] STEPHANIE Mesa MD CPT- 4: 90309 08/14/2013 ([id number]) PREV VISIT NEW AGE 40-64 Diagnosis: Routine general medical examination at a health care facility[ICD9: V70.0] Michaela Quinteros MD, [facility] CPT-4: 82237 2012 Plan of Care Planned Activity Notes Codes Status Date Appointment: Fernanda Barrios WPtel: [address] [place] [address] - Annual Wellness Visit 10/02/2017 Visit Plan: Irregular heart rhythm - will order EKG and treat as indicated - pt is to notify clinic if symptoms do not improve, if they worsen, or with any changes, questions, or concerns. 09/20/2017 Appointment: [facility]anda Barrios WPtel: [address] [place], [place] [phone] (15 min) Moderate 09/20/2017 Patient Education: Patient Medication Summary Completed 09/20/2017 Visit Plan: URI - Pt advised to increase fluids, vitamin C. Discussed natural and expected course of this diagnosis and need to alert me if symptoms do not follow expected course, or if any worse. RX sent to patient' s pharmacy. Allergies - chronic - recommended pt to use allergy medication as prescribed. Pt has been counseled as to the appropriate use of the medication. Pt to call if allergy symptoms are not controlled with the medication. If using nasal spray, instructions as follows: Nasal spray- use twice daily, one spray per nostril twice daily, after 30 minutes, rinse out nose with saline spray.. Use opposite hand per nostril to spray in the nasal steroid allergy spray. 07/25/2017 Appointment: [facility] [phone] [facility] [id number] (10 min) Simple 07/25/2017 Patient Education: Patient Medication Summary Completed 07/25/2017 Visit Plan: Hypertension - well controlled - continue with current medications, continue with no added salt diet. Pt has been encouraged to exercise daily. The pt has been advised to call the office if there are any acute concerns about change in blood pressure readings at home. Osteoporosis - recommended stopping fosamax - and start prolia injection needs set up for patient in cancer center. Hypothyroidism - pt with chronic hypothyroidism, continue with current medication, will monitor pt to signs or symptoms of lack of adequate supplementation. Pt is to continue with current dose of medication unless directed otherwise. Check labs at regular intervals wither q 3 months or q 6 months based on previous levels of control. right shoulder pain - chronic - continue prn antiinflammatories. 02/14/2017 Appointment: Michaela Quinteros WPtel: [id number] (15 min) Moderate 02/14/2017 Patient Education: Patient Medication Summary Completed 02/14/2017 Patient Education: Obesity Completed 02/14/2017 Appointment: Michaela Quinteros WPtel: [facility] [id number] (15 min) Moderate 01/18/2017 Visit Plan: Medicare Exam - today we discussed the patients past history, immunizations, preventative exams/evaluations - colonoscopy, fecal occult blood testing, routine labs for renal function, glucose, cholesterol, osteoporosis evaluations, cardiovascular testing and cancer screenings. We have also discussed mental health and the signs/symptoms of depression. The patient was advised of home safety evaluations and the need to make sure that as the aging process continues, we need to be aware of different ways to make the home a safer place to reside. The patient has also been counseled that exercise is necessary - and of utmost importance as we age to help decrease fall risk and to maintain independece in the home. Today we discussed the need for the patient to create paperwork for Advanced directives as well as for the patient to provide this office with a copy of her DOPA paperwork for health care surrogate. 09/26/2016 Visit Plan: Medicare Exam - today we discussed the patients past history, immunizations, preventative exams/evaluations - colonoscopy, fecal occult blood testing, routine labs for renal function, glucose, cholesterol, osteoporosis evaluations, cardiovascular testing and cancer screenings. We have also discussed mental health and the signs/symptoms of depression. The patient was advised of home safety evaluations and the need to make sure that as the aging process continues, we need to be aware of different ways to make the home a safer place to reside. The patient has also been counseled that exercise is necessary - and of utmost importance as we age to help decrease fall risk and to maintain independece in the home. Today we discussed the need for the patient to create paperwork for Advanced directives as well as for the patient to provide this office with a copy of her DOPA paperwork for health care surrogate. 09/26/2016 Appointment: Fernanda Barrios WPtel: [phone] [id number] [facility] - Annual Wellness Visit 09/26/2016 Patient Education: Patient Medication Summary Completed 09/26/2016 Visit Plan: Hypertension - well controlled - continue with current medications, continue with no added salt diet. Pt has been encouraged to exercise daily. The pt has been advised to call the office if there are any acute concerns about change in blood pressure readings at home. Hypothyroidism - pt with chronic hypothyroidism, continue with current medication, will monitor pt to signs or symptoms of lack of adequate supplementation. Pt is to continue with current dose of medication unless directed otherwise. Check labs at regular intervals wither q 3 months or q 6 months based on previous levels of control. Right shoulder pain - continue with current plan - antiinflammatories 09/19/2016 Appointment: Michaela Quinteros WPtel: [phone] [facility] (15 min) Moderate 09/19/2016 Patient Education: Patient Medication Summary Completed 09/19/2016 Patient Education: Obesity Completed 09/19/2016 Visit Plan: Hypertension - well controlled - continue with current medications, continue with no added salt diet. Pt has been encouraged to exercise daily. The pt has been advised to call the office if there are any acute concerns about change in blood pressure readings at home. Hypothyroidism - pt with chronic hypothyroidism, continue with current medication, will monitor pt to signs or symptoms of lack of adequate supplementation. Pt is to continue with current dose of medication unless directed otherwise. Check labs at regular intervals wither q 3 months or q 6 months based on previous levels of control. 05/01/2016 Appointment: Michaela Quinteros WPtel: [facility] (15 min) Moderate 05/01/2016 Patient Education: Patient Medication Summary Completed 05/01/2016 Patient Education: Obesity Completed 05/01/2016 Visit Plan: Hypertension - well controlled - continue with current medications, continue with no added salt diet. Pt has been encouraged to exercise daily. The pt has been advised to call the office if there are any acute concerns about change in blood pressure readings at home. Hypothyroidism - pt with chronic hypothyroidism, continue with current medication, will monitor pt to signs or symptoms of lack of adequate supplementation. Pt is to continue with current dose of medication unless directed otherwise. Check labs at regular intervals wither q 3 months or q 6 months based on previous levels of control. 09/07/2014 Appointment: Michaela Quinteros WPtel: [facility] Follow up 09/07/2014 Patient Education: Patient Medication Summary Completed 09/07/2014 Patient Education: Hypertension Completed 09/07/2014 Visit Plan: Hypertension - well controlled - continue with current medications, continue with no added salt diet. Pt has been encouraged to exercise daily. The pt has been advised to call the office if there are any acute concerns about change in blood pressure readings at home. Esophageal Reflux - the patient has been counseled against excessive intake of caffeine, spicy foods, peppermint, and cinnamon - all of which can exacerbate esophageal reflux. The patient is to take medications as prescribed and call the office if the symptoms are not improving. Obesity - discussed need to decrease caloric intake and start an exercise program. 06/16/2014 Appointment: Michaela Quinteros WPtel: [phone] [facility] Follow up 06/16/2014 Patient Education: Patient Medication Summary Completed 06/16/2014 Patient Education: Hypertension Completed 06/16/2014 Appointment: Michaela Quinteros WPtel: [address] [place], [place] [id number] Nurse Visit 12/17/2013 Patient Education: Patient Medication Summary Completed 12/17/2013 Visit Plan: Esophageal Reflux - the patient has been counseled against excessive intake of caffiene, spicy foods, peppermint, and cinnamon - all of which can exacerbate esophageal reflux. The patient is to take medications as prescribed and call the office if the symptoms are not improving. 12/16/2013 Appointment: Michaela Quinteros WPtel: [address] [place], [place] [id number] Follow up 12/16/2013 Patient Education: Patient Medication Summary Completed 12/16/2013 Visit Plan: Esophageal Reflux - the patient has been counseled against excessive intake of caffiene, spicy foods, peppermint, and cinnamon - all of which can exacerbate esophageal reflux. The patient is to take medications as prescribed and call the office if the symptoms are not improving. Pt to start on pantoprazole 40 mg daily. Obesity - recommended modification of dietary intake, cut down on carbohydrate and fat intake as well as making sure that her total calorie intake is decreased. 08/14/2013 Appointment: Michaela Quinteros WPtel: [address] [place], [place] [id number] Other 08/14/2013 Patient Education: Patient Medication Summary Completed 08/14/2013 Patient Education: .Amazing charts Diabetic meal planning guide Completed 08/14 Visit Plan: Well Adult - pt was counseled about diet, exercise, and encouraged to follow a heart healthy diet and increase acrtivity level. The patient was instructed to RTC yearly for well adult exams and PRN for acute illnesses. The pt was also instructed to have yearly labs for check of cholesterol, thyroid, chem panel, CBC, and renal functioning. 02/12/2013 Appointment: Michaela Quinteros WPtel: [facility] New Patient 02/12/2013 Patient Education: Patient Medication Summary Completed 02/12/2013 Instructions Comment . URI - Pt advised to increase fluids, vitamin C. Discussed natural and expected course of this diagnosis and need to alert me if symptoms do not follow expected course, or if any worse. RX sent to patient's pharmacy. Allergies - chronic - recommended pt to use allergy medication as prescribed. Pt has been counseled as to the appropriate use of the medication. Pt to call if allergy symptoms are not controlled with the medication. If using nasal spray, instructions as follows: Nasal spray- use twice daily, one spray per nostril twice daily, after 30 minutes, rinse out nose with saline spray.. Use opposite hand per nostril to spray in the nasal steroid allergy spray. stop fosamax . Hypertension - well controlled - continue with current medications, continue with no added salt diet. Pt has been encouraged to exercise daily. The pt has been advised to call the office if there are any acute concerns about change in blood pressure readings at home. Osteoporosis - recommended stopping fosamax - and start prolia injection needs set up for patient in cancer center. Hypothyroidism - pt with chronic hypothyroidism, continue with current medication, will monitor pt to signs or symptoms of lack of adequate supplementation. Pt is to continue with current dose of medication unless directed otherwise. Check labs at regular intervals wither q 3 months or q 6 months based on previous levels of control. right shoulder pain - chronic - continue prn antiinflammatories. . Hypertension - well controlled - continue with current medications, continue with no added salt diet. Pt has been encouraged to exercise daily. The pt has been advised to call the office if there are any acute concerns about change in blood pressure readings at home. Hypothyroidism - pt with chronic hypothyroidism, continue with current medication, will monitor pt to signs or symptoms of lack of adequate supplementation. Pt is to continue with current dose of medication unless directed otherwise. Check labs at regular intervals wither q 3 months or q 6 months based on previous levels of control. . Medicare Exam - today we discussed the patients past history, immunizations, preventative exams/evaluations - colonoscopy, fecal occult blood testing, routine labs for renal function, glucose, cholesterol, osteoporosis evaluations, cardiovascular testing and cancer screenings. We have also discussed mental health and the signs/symptoms of depression. The patient was advised of home safety evaluations and the need to make sure that as the aging process continues, we need to be aware of different ways to make the home a safer place to reside. The patient has also been counseled that exercise is necessary - and of utmost importance as we age to help decrease fall risk and to maintain independece in the home. Today we discussed the need for the patient to create paperwork for Advanced directives as well as for the patient to provide this office with a copy of her DOPA paperwork for health care surrogate. . Medicare Exam - today we discussed the patients past history, immunizations, preventative exams/evaluations - colonoscopy, fecal occult blood testing, routine labs for renal function, glucose, cholesterol, osteoporosis evaluations, cardiovascular testing and cancer screenings. We have also discussed mental health and the signs/symptoms of depression. The patient was advised of home safety evaluations and the need to make sure that as the aging process continues, we need to be aware of different ways to make the home a safer place to reside. The patient has also been counseled that exercise is necessary - and of utmost importance as we age to help decrease fall risk and to maintain independece in the home. Today we discussed the need for the patient to create paperwork for Advanced directives as well as for the patient to provide this office with a copy of her DOPA paperwork for health care surrogate. . Esophageal Reflux - the patient has been counseled against excessive intake of caffiene, spicy foods, peppermint, and cinnamon - all of which can exacerbate esophageal reflux. The patient is to take medications as prescribed and call the office if the symptoms are not improving. . Hypertension - well controlled - continue with current medications, continue with no added salt diet. Pt has been encouraged to exercise daily. The pt has been advised to call the office if there are any acute concerns about change in blood pressure readings at home. Hypothyroidism - pt with chronic hypothyroidism, continue with current medication, will monitor pt to signs or symptoms of lack of adequate supplementation. Pt is to continue with current dose of medication unless directed otherwise. Check labs at regular intervals wither q 3 months or q 6 months based on previous levels of control. Plan: ([id number]) SCREENINGMAMMOGRAPHYDIGITAL . Hypertension - well controlled - continue with current medications, continue with no added salt diet. Pt has been encouraged to exercise daily. The pt has been advised to call the office if there are any acute concerns about change in blood pressure readings at home. Hypothyroidism - pt with chronic hypothyroidism, continue with current medication, will monitor pt to signs or symptoms of lack of adequate supplementation. Pt is to continue with current dose of medication unless directed otherwise. Check labs at regular intervals wither q 3 months or q 6 months based on previous levels of control. Right shoulder pain - continue with current plan - antiinflammatories . Esophageal Reflux - the patient has been counseled against excessive intake of caffiene, spicy foods, peppermint, and cinnamon - all of which can exacerbate esophageal reflux. The patient is to take medications as prescribed and call the office if the symptoms are not improving. Pt to start on pantoprazole 40 mg daily. Obesity - recommended modification of dietary intake, cut down on carbohydrate and fat intake as well as making sure that her total calorie intake is decreased. Esophageal Reflux - the patient has been counseled against excessive intake of caffeine, spicy foods, peppermint, and cinnamon - all of which can exacerbate esophageal reflux. The patient is to take medications as prescribed and call the office if the symptoms are not improving. . Hypertension - well controlled - continue with current medications, continue with no added salt diet. Pt has been encouraged to exercise daily. The pt has been advised to call the office if there are any acute concerns about change in blood pressure readings at home. Esophageal Reflux - the patient has been counseled against excessive intake of caffeine, spicy foods, peppermint, and cinnamon - all of which can exacerbate esophageal reflux. The patient is to take medications as prescribed and call the office if the symptoms are not improving. Obesity - discussed need to decrease caloric intake and start an exercise program. . Irregular heart rhythm - will order EKG and treat as indicated - pt is to notify clinic if symptoms do not improve, if they worsen, or with any changes, questions, or concerns. . Well Adult - pt was counseled about diet, exercise, and encouraged to follow a heart healthy diet and increase acrtivity level. The patient was instructed to RTC yearly for well adult exams and PRN for acute illnesses. The pt was also instructed to have yearly labs for check of cholesterol, thyroid, chem panel, CBC, and renal functioning.
--- OUTSIDE RECORDS SUMMARY | 2018-02-28 07:53 | XMS REPORT | CCD ---
Author Author Michaela Quinteros Organization [facility] Address [address] [place] [address] Phone Care Team Providers Care Anodic Operator Name Role Phone PP Unavailable CCM Unavailable Summary Purpose Interface Exchange Insurance Providers Payer name Policy type / Coverage type Covered constitution party ID Effective Begin Date Effective End Date WPS Medicare Part B Medicare Part B [id number] 2016 Unknown Family history Father Diagnosis Age At [...] go by Names and Numbers- works in [employer] dept 05/01/2016 Marital status Unknown 02/11/[address]: 442236799 Never smoker 02/11/[address]: 909359333 Never drinks alcohol 02/11/2013 Has the patient ever used illegal drugs? Unknown Has never used illegal drugs 02/11/2013 Allergies, Adverse Reactions, Alerts Allergies, Adverse Reactions, Alerts data not found Past Medical History Illness Codes Condition Status Onset Date Resolved Date Acute laryngopharyngitis ICD-9: 465.0 ICD-10: J06.0 Active [...] Problems Condition Codes Effective Dates Condition Status Acute laryngopharyngitis ICD-9: 465.0 ICD-10: J06.0 07/25/2017 [...] Start Date Stop Date Status Fill Instructions amoxicillin 500 mg capsule RxNorm: 407764 1 Capsule(s) PO TID 07/25/2017 08/03/2017 Active Synthroid 50 mcg tablet RxNorm: 505665 TAKE ONE TABLET BY MOUTH DAILY 03/27/2017 09/22/2017 Active pantoprazole 40 mg tablet,delayed release RxNorm: 193111 TAKE ONE TABLET BY MOUTH EVERY EVENING 11/09/2016 11/03/2017 Active losartan 25 mg tablet RxNorm: 452125 1 Tablet(s) PO QPM 201609/13/2017 Active Synthroid 50 mcg tablet RxNorm: 423581 1 Tablet(s) PO daily TAKE ONE TABLET BY MOUTH DAILY 09/19/2016 03/17/2017 Inactive alendronate 70 mg tablet RxNorm: 532174 1 Tablet(s) PO QW 09/1902/13/2017 Inactive pantoprazole 40 mg tablet,delayed release RxNorm: 152216 1 Tablet(s) PO QPM TAKE ONE TABLET BY MOUTH EVERY EVENING 05/01/2016 10/27/2016 Inactive losartan 25 mg tablet RxNorm: 134909 1 Tablet(s) PO QPM TAKE ONE TABLET BY MOUTH EVERY NIGHT AT BEDTIME 05/01/20162016 Inactive Synthroid 50 mcg tablet RxNorm: 400092 1 Tablet(s) PO daily TAKE ONE TABLET BY MOUTH DAILY 05/01/2016 09/18/2016 Inactive pantoprazole 40 mg tablet,delayed release RxNorm: 897744 TAKE ONE TABLET BY MOUTH EVERY EVENING 06/01/2015 11/27/2015 Inactive Synthroid 50 mcg tablet RxNorm: 729465 Tablet(s) PO TAKE ONE TABLET BY MOUTH DAILY 04/28/2015 11/23/2015 Inactive losartan 25 mg tablet RxNorm: 585571 TAKE ONE TABLET BY MOUTH EVERY NIGHT AT BEDTIME 04/24/2015 04/17/2016 Inactive losartan 25 mg tablet RxNorm: 468807 1 Tablet(s) PO QHS 201411/18/2015 Inactive Fosamax 70 mg tablet RxNorm: 754419 TAKE ONE TABLET BY MOUTH WEEKLY 03/30/2015 06/21/2015 Inactive Synthroid 25 mcg tablet RxNorm: 907832 TAKE ONE TABLET BY MOUTH DAILY 03/23/2015 04/27/2015 Inactive Fosamax 70 mg tablet RxNorm: 502629 1 Tablet(s) PO weekly 12/1012/09/2014 Inactive Fosamax 70 mg tablet RxNorm: 308273 1 Tablet(s) PO weekly 12/1003/29/2015 Inactive Synthroid 25 mcg tablet RxNorm: 699985 1 Tablet(s) PO daily 02/201503/16/2015 Inactive [SAVINGS FOR UNINSURED PATIENTS -- BIN:[id number], PCN: [id number], Group: [id number] , ID# [id number], Process claim through [employer], for questions: . THIS IS NOT INSURANCE.] losartan 25 mg tablet RxNorm: 039728 1 Tablet(s) PO QHS 201404/13/2015 Inactive pantoprazole 40 mg tablet,delayed release RxNorm: 664841 TAKE ONE TABLET BY MOUTH EVERY EVENING 08/17/2014 05/13/2015 Inactive Synthroid 25 mcg tablet RxNorm: 784948 1 Tablet(s) PO daily 11/02/2014 Inactive [SAVINGS FOR UNINSURED PATIENTS -- BIN:[id number], PCN: ASPROD1, Group: [id number] , ID# [id number], Process claim through [employer], for questions: . THIS IS NOT INSURANCE.] Synthroid 25 mcg tablet RxNorm: 937470 1 Tablet(s) PO daily 07/05/2014 Inactive alendronate sodium-cholecalciferol(vitamin D3) 70 mg-2,800 unit tablet RxNorm: 901263 1 Tablet(s) PO QW 05/04/20142014 Inactive losartan 25 mg tablet RxNorm: 520912 1 Tablet(s) PO QHS 201308/28/2014 Inactive losartan 25 mg tablet RxNorm: 361346 1 Tablet(s) PO QHS 201304/15/2014 Inactive losartan 25 mg tablet RxNorm: 912983 1 Tablet(s) PO QHS 201312/16/2013 Inactive alendronate sodium-cholecalciferol(vitamin D3) 70 mg-2,800 unit tablet RxNorm: 673814 1 Tablet(s) PO QW 09/18/20132013 Inactive pantoprazole 40 mg tablet,delayed release RxNorm: 829449 1 Tablet(s) PO QPM 08/14/2013 08/08/2014 Inactive Calcium + Vitamin D 600 mg calcium-200 unit tablet RxNorm: 356297 2 Tablet(s) PO BID No Start Date Active exemestane 25 mg tablet RxNorm: 393897 1 Tablet(s) PO daily No Start Date Active Vitamin B12 500 mcg RxNorm: 1 Tablet(s) PO daily No Start Date Active alendronate sodium-cholecalciferol(vitamin D3) 70 mg-2,800 unit tablet RxNorm: 478834 1 Tablet(s) PO QW No Start Date 2013 Inactive alendronate 70 mg tablet RxNorm: 918304 1 Tablet(s) PO QW No Start Date [...] 10/09/2011 completed Assessments Condition Codes Effective Dates Other allergic rhinitis ICD-10: J30.89 ICD-9: 477.8 [...] ICD-9: 244.9 2014 ESSENTIAL HYPERTENSION ICD-9: 401.9 09/07 ESOPHAGEAL REFLUX ICD-9: 530.81 2014 OBESITY ICD-9: 278.00 06/16/2014 Elevated blood pressure ICD-9: 796.2 02/2014 Dietary counseling ICD-9: V65.3 2013 Routine general medical examination at a [facility] care facility ICD-9: V70.0 02/12/2013 Reason For Visit Reason For Visit Effective Dates Notes sore throat 07/25/2017 shoulder pain 02/14/2017 Annual Medicare Wellness Exam 09/26/2016 shoulder pain 09/19/2016 hypothyroid 05/01/2016 hypertension 09/07/2014 hypertension 06/16/2014 gastroesophageal reflux 12/16/2013 gastroesophageal reflux 08/14/2013 well woman exam (40-65 years) 02/12/2013 Results Observation Observation Code Item Item Code Result Date GFR CALC 4013639 GFR AA >60 ML/MIN 06/19/2014 GFR CALC 9583496 GFR NON-AA 58.0L ML/MIN 06/19/2014 CHEM 14 5804962 AST 21 U/L 06/19/2014 CHEM 14 7661386 ALT 22 IU/L 06/19/2014 CHEM 14 2598584 BUN 15 MG/DL 06/19/2014 CHEM 14 2759828 ALBUMIN 4.5 GM/DL 06/19/2014 CHEM 14 2507236 CHLORIDE 104 MMOL/L 06/19/2014 CHEM 14 2025045 BILI TOT 0.5 MG/DL 06/19/2014 CHEM 14 4019780 ALK PHOS 81 U/L 06/19/2014 CHEM 14 5903959 SODIUM 138 MMOL/L 06/19/2014 CHEM 14 4493123 CREATININE 0.97 MG/DL 06/19/2014 CHEM 14 8395035 CALCIUM 9.3 MG/DL 06/19/2014 CHEM 14 2770428 POTASSIUM 4.0 MMOL/L 06/19/2014 CHEM 14 8904810 PROT TOT 7.4 GM/DL 06/19/2014 CHEM 14 9464721 GLUCOSE 91 MG/DL 06/19/2014 CHEM 14 5811628 BICARB 28 MMOL/L 06/19/2014 CHEM 14 9545273 ANION GAP 6 MEQ/L 06/19/2014 CBC 8900670 WBC 4.1 10e9/L 06/19/2014 CBC 0123902 RBC 4.98 10e12/L 06/19/2014 CBC 1652717 HGB 14.1 g/dL 06/19/2014 CBC 8124041 HCT DET 43.7 % 06/19/2014 CBC 9115225 MCV 87.8 fL 06/19/2014 CBC 6894404 MCH 28.3 pg 06/19/2014 CBC 9281709 MCHC 32.3 g/dL 06/19/2014 CBC 5666761 PLT 289 10e9/L 06/19/2014 CBC 7789093 MPV 9.7 fL 06/19/2014 CBC 7706456 OSIEL % 43.1 % 06/19/2014 CBC 3826668 LY % 40.7 % 06/19/2014 CBC 0707092 MON % 12.3 % 06/19/2014 CBC 2907532 EOS % 3.2 % 06/19/2014 CBC 2404076 BASO % 0.7 % 06/19/2014 CBC 0796528 RDW 13.3 % 06/19/2014 CBC 2897650 ABS OSIEL 1.77 10e9/L 06/19/2014 CBC 9779330 ABS LYMPH 1.67 10e9/L 06/19/2014 CBC 9557744 ABS MONO 0.50 10e9/L 06/19/2014 CBC 4485438 ABS EOS 0.13 10e9/L 06/19/2014 CBC 6375448 ABS BASO 0.03 10e9/L 06/19/2014 CBC 2543368 RDW-SD 41.7 fL 06/19/2014 LIPID GRP HDL TEST 30 MG/DL 06/19/2014 LIPID GRP TRIG 119 MG/DL 06/19/2014 LIPID GRP TEST LDL 129 MG/DL 06/19/2014 LIPID GRP CHOL 183 MG/DL 06/19/2014 LIPID GRP RCHOL/HDL 6.10 RATIO 06/19/2014 LIPID GRP NON-HDL CH 153 MG/DL 06/19/2014 TSH 6071342 TSH 5.125 uIU/ML 06/19/2014 Review of Systems System Result Effective Dates Constitutional recent illness 07/25/2017 Constitutional chills 07/25/2017 [...] Result Effective Dates Notes Full Exam - ENT Constitutional general appearance [...] rate 12/16/2013 None Full Exam - General 1995 Cardiovascular extremities Overall: no clubbing 12/16/2013 None [...] CPT-4: G0402 09/26/2016 Vital Signs Date Vital 07/25/2017 Blood Pressure 1: 122/76 Code : 8480-6 BMI: 34.6 Code : 60229-0 Heart Rate 1 : 79 bpm Height: 5' SpO2: 98% Temperature: 36.7 (C) / 98.1 (F) Weight: 180 lbs 02/14/2017 Blood Pressure 1: 136/80 Code : 8480-6 BMI: 35.7 Code : 94033-9 Heart Rate 1 : 67 bpm Height: 5' SpO2: 99% Weight: 186 lbs 09/26/2016 Blood Pressure 1: 128/70 Code : 8480-6 BMI: 36.7 Code : 05707-3 Heart Rate 1 : 75 bpm Height: 5' SpO2: 95% Waist Measure (cm): 112 cm Weight: 191 lbs 09/19/2016 Blood Pressure 1: 144/82 Code : 8480-6 BMI: 35.9 Code : 02578-2 Heart Rate 1 : 70 bpm Height: 5' SpO2: 97% Weight: 187 lbs 05/01/2016 Blood Pressure 1: 116/72 Code : 8480-6 BMI: 35.7 Code : 55647-7 Heart Rate 1 : 75 bpm Height: 5' SpO2: 98% Weight: 186 lbs 09/07/2014 Blood Pressure 1: 122/72 Code : 8480-6 BMI: 34.8 Code : 52842-6 Heart Rate 1 : 68 bpm Height: 5' Weight: 181 lbs 06/16/2014 Blood Pressure 1: 124/72 Code : 8480-6 BMI: 35.2 Code : 39574-3 Heart Rate 1 : 68 bpm Height: 5' Weight: 183 lbs 12/17/2013 Blood Pressure 1: 144/88 Code : 8480-6 12/16/2013 Blood Pressure 1: 148/92 Code : 8480-6 BMI: 35.9 Code : 21625-2 Heart Rate 1 : 60 bpm Height: 5' Weight: 187 lbs 08/14/2013 Blood Pressure 1: 116/70 Code : 8480-6 BMI: 35.7 Code : 77508-4 Heart Rate 1 : 76 bpm Height: 5' Weight: 186 lbs 02/12/2013 Blood Pressure 1: 132/80 Code : 8480-6 BMI: 36.3 Code : 41152-1 Heart Rate 1 : 68 bpm Height: 5' Weight: 189 lbs Functional Status No Functional Status data History of Present Illness Symptom Name Status Result Effective Date Notes sore throat Quality acute 07/25/2017 None sore [...] Codes Date EST. PATIENT, LEVEL III Diagnosis: Acute laryngopharyngitis[ICD10: J06.0] Diagnosis: Other allergic rhinitis[ICD10: J30.89] [facility] CPT-4: 43595 07/25/2017 [id number]) 07178 EST. PATIENT, LEVEL IV Diagnosis: Atrophy of thyroid (acquired)[ICD10: E03.4] Diagnosis: Essential (primary) hypertension[ICD10: I10] Diagnosis: Age-related osteoporosis without current pathological fracture[ICD10 : M81.0] Diagnosis: Pain in right shoulder[ICD10: M25.511] [facility] CPT-4: 69910 02/14/2017 ([id number]) 03550 EST. PATIENT, LEVEL IV Diagnosis: Atrophy of thyroid (acquired)[ICD10: E03.4] Diagnosis: Essential (primary) hypertension[ICD10: I10] Diagnosis: Pain in right shoulder[ICD10: M25.511] [facility] Qu[facility]os MD, [facility] CPT-4: 34144 09/19/2016 ([id number]) 77575 EST. PATIENT, LEVEL IV Diagnosis: Essential (primary) hypertension[ICD10: I10] Diagnosis: Atrophy of thyroid (acquired)[ICD10: E03.4] [facility] MD, [facility] CPT-4: 53352 05/01/2016 ([id number]) 14383 EST. PATIENT, LEVEL III Diagnosis: ESSENTIAL HYPERTENSION[ICD9: 401.9] Diagnosis: Adult hypothyroidism[ICD9: 244.9] [facility] Quinteros MD, [facility] CPT-4: 04290 09/07/2014 ([id number]) 29598 EST. PATIENT, LEVEL IV Diagnosis: ESSENTIAL HYPERTENSION[ICD9: 401.9] Diagnosis: ESOPHAGEAL REFLUX[ICD9: 530.81] Diagnosis: OBESITY[ICD9: 278.00] [facility] MD, [facility] CPT-4: 86309 06/16/2014 ([id number]) Miscellaneous no charge Diagnosis: Elevated blood pressure[ICD9: 796.2] [facility]a Qu[facility]os MD, [facility] CPT-4: 32216 12/17/2013 ([id number]) 47309 EST. PATIENT, LEVEL III Diagnosis: ESOPHAGEAL REFLUX[ICD9: 530.81] [facility] MD, [facility] CPT- 4: 72625 12/16/2013 ([id number]) 09881 EST. PATIENT, LEVEL III Diagnosis: ESOPHAGEAL REFLUX[ICD9: 530.81] Diagnosis: OBESITY[ICD9: 278.00] Diagnosis: Dietary counseling[ICD9: V65.3] [facility] MD, [facility] CPT- 4: 36474 08/14/2013 ([id number]) PREV VISIT NEW AGE 40-64 Diagnosis: Routine general medical examination at a health care facility[ICD9: V70.0] [facility] CPT-4: 83682 2012 Plan of Care Planned Activity Notes Codes Status Date Visit Plan: URI - Pt advised to [...] allergy spray. 07/25/2017 Appointment: [facility] [phone] [id number] (10 min) Simple 07/25/2017 Patient Education: Patient [...] prn antiinflammatories. 02/14/2017 [phone] [facility] [place] (15 min) Moderate 02/14/2017 Patient Education: Patient Medication Summary Completed 02/14/2017 Patient Education: Obesity Completed 02/14/2017 Appointment: [facility] [phone] [facility] [place] (15 min) Moderate 01/18/2017 Visit Plan: Medicare [...] surrogate. 09/26/2016 Appointment: [facility] [phone] [id number] [facility] - Annual Wellness Visit 09/26/2016 Patient Education: [...] antiinflammatories 09/19/2016 Appointment: Michaela Quinteros WPtel: [phone] [facility] (15 min) Moderate 09/19/2016 Patient Education: Patient [...] of control. 05/01/2016 Appointment: Michaela Quinteros WPtel: [phone] [facility] (15 min) Moderate 05/01/2016 Patient Education: Patient [...] of control. 09/07/2014 Appointment: Michaela Quinteros WPtel: [phone] [facility] Follow up 09/07/2014 Patient Education: Patient Medication [...] exercise program. 06/16/2014 Appointment: Michaela Quinteros WPtel: [address] [place], [place] [phone] Follow up 06/16/2014 Patient Education: Patient Medication Summary Completed 06/16/2014 Patient Education: Hypertension Completed 06/16/2014 Appointment: Michaela Quinteros WPtel: [address] [place], [place] [phone] Nurse Visit 12/17/2013 Patient Education: Patient Medication Summary Completed 12/17/2013 Visit Plan: Esophageal Reflux - the patient has been counseled against excessive intake of caffiene, spicy foods, peppermint, and cinnamon - all of which can exacerbate esophageal reflux. The patient is to take medications as prescribed and call the office if the symptoms are not improving. 12/16/2013 Appointment: Michaela Quinteros WPtel: [address] [place], [place] [phone] Follow up 12/16/2013 Patient Education: Patient Medication [...] is decreased. 08/14/2013 Appointment: Michaela Quinteros WPtel: [facility] Other 08/14/2013 Patient Education: Patient Medication Summary [...] renal functioning. 02/12/2013 Appointment: [facility] [phone] [facility] [place] New Patient 02/12/2013 Patient Education: Patient Medication [...] intake and start an exercise program. . Well Adult - pt was counseled [...]
--- OUTSIDE RECORDS SUMMARY | 2018-02-28 07:55 | XMS REPORT | CCD ---
Author Author [facility]os Organization [facility] Address [address] [place] [address] Phone Care Team Providers Care Leaf Fat Scraper Name Role Phone PP Unavailable CCM Unavailable Summary Purpose Interface Exchange Insurance Providers Payer name Policy type / Coverage type Covered republican ID Effective Begin Date Effective End Date WPS Medicare Part B Medicare Part B [id number] 2016 Unknown Family history Father Diagnosis Age [...] go by Names and Numbers- works in [employer] de[employer] 05/01/2016 Marital status Unknown 02/11/[address]: 704364826 Never smoker 02/11/[address]: 656488945 Never drinks alcohol 02/11/2013 Has the patient [...] Fill Instructions amoxicillin 500 mg capsule RxNorm: 600977 1 Capsule(s) PO TID 07/25/2017 08/03/2017 Active Synthroid 50 mcg tablet RxNorm: 843938 TAKE ONE TABLET BY MOUTH DAILY 03/27/2017 09/22/2017 Active pantoprazole 40 mg tablet,delayed release RxNorm: 671605 TAKE ONE TABLET BY MOUTH EVERY EVENING 11/09/2016 11/03/2017 Active losartan 25 mg tablet RxNorm: 630523 1 Tablet(s) PO QPM 201609/13/2017 Active Synthroid 50 mcg tablet RxNorm: 295847 1 Tablet(s) PO daily TAKE ONE TABLET BY MOUTH DAILY 09/19/2016 03/17/2017 Inactive alendronate 70 mg tablet RxNorm: 343838 1 Tablet(s) PO QW 09/1902/13/2017 Inactive pantoprazole 40 mg tablet,delayed release RxNorm: 937630 1 Tablet(s) PO QPM TAKE ONE TABLET BY MOUTH EVERY EVENING 05/01/2016 10/27/2016 Inactive losartan 25 mg tablet RxNorm: 754907 1 Tablet(s) PO QPM TAKE ONE TABLET BY MOUTH EVERY NIGHT AT BEDTIME 05/01/20162016 Inactive Synthroid 50 mcg tablet RxNorm: 193148 1 Tablet(s) PO daily TAKE ONE TABLET BY MOUTH DAILY 05/01/2016 09/18/2016 Inactive pantoprazole 40 mg tablet,delayed release RxNorm: 798074 TAKE ONE TABLET BY MOUTH EVERY EVENING 06/01/2015 11/27/2015 Inactive Synthroid 50 mcg tablet RxNorm: 852286 Tablet(s) PO TAKE ONE TABLET BY MOUTH DAILY 04/28/2015 11/23/2015 Inactive losartan 25 mg tablet RxNorm: 936367 TAKE ONE TABLET BY MOUTH EVERY NIGHT AT BEDTIME 04/24/2015 04/17/2016 Inactive losartan 25 mg tablet RxNorm: 342459 1 Tablet(s) PO QHS 201411/18/2015 Inactive Fosamax 70 mg tablet RxNorm: 745454 TAKE ONE TABLET BY MOUTH WEEKLY 03/30/2015 06/21/2015 Inactive Synthroid 25 mcg tablet RxNorm: 024625 TAKE ONE TABLET BY MOUTH DAILY 03/23/2015 04/27/2015 Inactive Fosamax 70 mg tablet RxNorm: 217053 1 Tablet(s) PO weekly 12/1012/09/2014 Inactive Fosamax 70 mg tablet RxNorm: 497004 1 Tablet(s) PO weekly 12/1003/29/2015 Inactive Synthroid 25 mcg tablet RxNorm: 293331 1 Tablet(s) PO daily 02/201503/16/2015 Inactive [SAVINGS FOR UNINSURED PATIENTS -- BIN:[id number], PCN: [id number], Group: [id number] , ID# [id number], Process claim through [employer], for questions: . THIS IS NOT INSURANCE.] losartan 25 mg tablet RxNorm: 964237 1 Tablet(s) PO QHS 201404/13/2015 Inactive pantoprazole 40 mg tablet,delayed release RxNorm: 893429 TAKE ONE TABLET BY MOUTH EVERY EVENING 08/17/2014 05/13/2015 Inactive Synthroid 25 mcg tablet RxNorm: 404185 1 Tablet(s) PO daily 11/02/2014 Inactive [SAVINGS FOR UNINSURED PATIENTS -- BIN:[id number], PCN: ASPROD1, Group: [id number] , ID# [id number], Process claim through [employer], for questions: . THIS IS NOT INSURANCE.] Synthroid 25 mcg tablet RxNorm: 991305 1 Tablet(s) PO daily 07/05/2014 Inactive alendronate sodium-cholecalciferol(vitamin D3) 70 mg-2,800 unit tablet RxNorm: 273547 1 Tablet(s) PO QW 05/04/20142014 Inactive losartan 25 mg tablet RxNorm: 979377 1 Tablet(s) PO QHS 201308/28/2014 Inactive losartan 25 mg tablet RxNorm: 655938 1 Tablet(s) PO QHS 201304/15/2014 Inactive losartan 25 mg tablet RxNorm: 547240 1 Tablet(s) PO QHS 201312/16/2013 Inactive alendronate sodium-cholecalciferol(vitamin D3) 70 mg-2,800 unit tablet RxNorm: 235069 1 Tablet(s) PO QW 09/18/20132013 Inactive pantoprazole 40 mg tablet,delayed release RxNorm: 558845 1 Tablet(s) PO QPM 08/14/2013 08/08/2014 Inactive Calcium + Vitamin D 600 mg calcium-200 unit tablet RxNorm: 705162 2 Tablet(s) PO BID No Start Date Active exemestane 25 mg tablet RxNorm: 261884 1 Tablet(s) PO daily No Start Date Active Vitamin B12 500 mcg RxNorm: 1 Tablet(s) PO daily No Start Date Active alendronate sodium-cholecalciferol(vitamin D3) 70 mg-2,800 unit tablet RxNorm: 475429 1 Tablet(s) PO QW No Start Date 2013 Inactive alendronate 70 mg tablet RxNorm: 286019 1 Tablet(s) PO QW No Start Date [...] 2013 Routine general medical examination at a [facility] care facility ICD-9: V70.0 02/12/2013 Reason For Visit Reason For Visit Effective Dates Notes sore throat 07/25/2017 shoulder pain 02/14/2017 Annual Medicare Wellness Exam 09/26/2016 shoulder pain 09/19/2016 hypothyroid 05/01/2016 hypertension 09/07/2014 hypertension 06/16/2014 gastroesophageal reflux 12/16/2013 gastroesophageal reflux 08/14/2013 well woman exam (40-65 years) 02/12/2013 Results Observation Observation Code Item Item Code Result Date GFR CALC 6045983 GFR AA >60 ML/MIN 06/19/2014 GFR CALC 4418381 GFR NON-AA 58.0L ML/MIN 06/19/2014 CHEM 14 5865856 AST 21 U/L 06/19/2014 CHEM 14 5697775 ALT 22 IU/L 06/19/2014 CHEM 14 6858444 BUN 15 MG/DL 06/19/2014 CHEM 14 7303978 ALBUMIN 4.5 GM/DL 06/19/2014 CHEM 14 9887627 CHLORIDE 104 MMOL/L 06/19/2014 CHEM 14 4782197 BILI TOT 0.5 MG/DL 06/19/2014 CHEM 14 1966819 ALK PHOS 81 U/L 06/19/2014 CHEM 14 4020437 SODIUM 138 MMOL/L 06/19/2014 CHEM 14 2028821 CREATININE 0.97 MG/DL 06/19/2014 CHEM 14 6768028 CALCIUM 9.3 MG/DL 06/19/2014 CHEM 14 7990403 POTASSIUM 4.0 MMOL/L 06/19/2014 CHEM 14 9590131 PROT TOT 7.4 GM/DL 06/19/2014 CHEM 14 0518134 GLUCOSE 91 MG/DL 06/19/2014 CHEM 14 7391578 BICARB 28 MMOL/L 06/19/2014 CHEM 14 1081536 ANION GAP 6 MEQ/L 06/19/2014 CBC 0974772 WBC 4.1 10e9/L 06/19/2014 CBC 2614108 RBC 4.98 10e12/L 06/19/2014 CBC 2149476 HGB 14.1 g/dL 06/19/2014 CBC 3694367 HCT DET 43.7 % 06/19/2014 CBC 5685151 MCV 87.8 fL 06/19/2014 CBC 1355365 MCH 28.3 pg 06/19/2014 CBC 4155362 MCHC 32.3 g/dL 06/19/2014 CBC 8444944 PLT 289 10e9/L 06/19/2014 CBC 3448835 MPV 9.7 fL 06/19/2014 CBC 2685284 OSIEL % 43.1 % 06/19/2014 CBC 1790830 LY % 40.7 % 06/19/2014 CBC 5910929 MON % 12.3 % 06/19/2014 CBC 3067840 EOS % 3.2 % 06/19/2014 CBC 4506700 BASO % 0.7 % 06/19/2014 CBC 1567345 RDW 13.3 % 06/19/2014 CBC 4507546 ABS OSIEL 1.77 10e9/L 06/19/2014 CBC 3032967 ABS LYMPH 1.67 10e9/L 06/19/2014 CBC 8976000 ABS MONO 0.50 10e9/L 06/19/2014 CBC 7645168 ABS EOS 0.13 10e9/L 06/19/2014 CBC 1161508 ABS BASO 0.03 10e9/L 06/19/2014 CBC 3792199 RDW-SD 41.7 fL 06/19/2014 LIPID GRP HDL TEST 30 MG/DL 06/19/2014 LIPID GRP TRIG 119 MG/DL 06/19/2014 LIPID GRP TEST LDL 129 MG/DL 06/19/2014 LIPID GRP CHOL 183 MG/DL 06/19/2014 LIPID GRP RCHOL/HDL 6.10 RATIO 06/19/2014 LIPID GRP NON-HDL CH 153 MG/DL 06/19/2014 TSH 1984527 TSH 5.125 uIU/ML 06/19/2014 Review of Systems [...] Code : 8480-6 BMI: 34.6 Code : 79637-0 Heart Rate 1 : 79 bpm Height: 5' SpO2: 98% Temperature: 36.7 (C) / 98.1 (F) Weight: 180 lbs 02/14/2017 Blood Pressure 1: 136/80 Code : 8480-6 BMI: 35.7 Code : 78595-8 Heart Rate 1 : 67 bpm Height: 5' SpO2: 99% Weight: 186 lbs 09/26/2016 Blood Pressure 1: 128/70 Code : 8480-6 BMI: 36.7 Code : 16614-4 Heart Rate 1 : 75 bpm Height: 5' SpO2: 95% Waist Measure (cm): 112 cm Weight: 191 lbs 09/19/2016 Blood Pressure 1: 144/82 Code : 8480-6 BMI: 35.9 Code : 48778-3 Heart Rate 1 : 70 bpm Height: 5' SpO2: 97% Weight: 187 lbs 05/01/2016 Blood Pressure 1: 116/72 Code : 8480-6 BMI: 35.7 Code : 36346-6 Heart Rate 1 : 75 bpm Height: 5' SpO2: 98% Weight: 186 lbs 09/07/2014 Blood Pressure 1: 122/72 Code : 8480-6 BMI: 34.8 Code : 54009-8 Heart Rate 1 : 68 bpm Height: 5' Weight: 181 lbs 06/16/2014 Blood Pressure 1: 124/72 Code : 8480-6 BMI: 35.2 Code : 18755-9 Heart Rate 1 : 68 bpm Height: 5' Weight: 183 lbs 12/17/2013 Blood Pressure 1: 144/88 Code : 8480-6 12/16/2013 Blood Pressure 1: 148/92 Code : 8480-6 BMI: 35.9 Code : 45711-0 Heart Rate 1 : 60 bpm Height: 5' Weight: 187 lbs 08/14/2013 Blood Pressure 1: 116/70 Code : 8480-6 BMI: 35.7 Code : 21934-2 Heart Rate 1 : 76 bpm Height: 5' Weight: 186 lbs 02/12/2013 Blood Pressure 1: 132/80 Code : 8480-6 BMI: 36.3 Code : 63217-9 Heart Rate 1 : 68 bpm Height: [...] rhinitis[ICD10: J30.89] [facility] CPT-4: 79636 07/25/[id number]) 43832 EST. PATIENT, LEVEL IV Diagnosis: Atrophy of thyroid (acquired)[ICD10: E03.4] Diagnosis: Essential (primary) hypertension[ICD10: I10] Diagnosis: Age-related osteoporosis without current pathological fracture[ICD10 : M81.0] Diagnosis: Pain in right shoulder[ICD10: M25.511] [facility] CPT-4: 48932 02/14/2017 ([id number]) 28619 EST. PATIENT, LEVEL IV Diagnosis: Atrophy of thyroid (acquired)[ICD10: E03.4] Diagnosis: Essential (primary) hypertension[ICD10: I10] Diagnosis: Pain in right shoulder[ICD10: M25.511] [facility], [facility] CPT-4: 24474 09/19/2016 ([id number]) 09689 EST. PATIENT, LEVEL IV Diagnosis: Essential (primary) hypertension[ICD10: I10] Diagnosis: Atrophy of thyroid (acquired)[ICD10: E03.4] [facility], [facility] CPT-4: 89475 05/01/2016 ([id number]) 94307 EST. PATIENT, LEVEL III Diagnosis: ESSENTIAL HYPERTENSION[ICD9: 401.9] Diagnosis: Adult hypothyroidism[ICD9: 244.9] [facility], [facility] CPT-4: 56929 09/07/2014 ([id number]) 16460 EST. PATIENT, LEVEL IV Diagnosis: ESSENTIAL HYPERTENSION[ICD9: 401.9] Diagnosis: ESOPHAGEAL REFLUX[ICD9: 530.81] Diagnosis: OBESITY[ICD9: 278.00] [facility], [facility] CPT-4: 41213 06/16/2014 ([id number]) Miscellaneous no charge Diagnosis: Elevated blood pressure[ICD9: 796.2] [facility], [facility] CPT-4: 16417 12/17/2013 ([id number]) 36549 EST. PATIENT, LEVEL III Diagnosis: ESOPHAGEAL REFLUX[ICD9: 530.81] [facility], [facility] CPT- 4: 24850 12/16/2013 ([id number]) 85245 EST. PATIENT, LEVEL III Diagnosis: ESOPHAGEAL REFLUX[ICD9: 530.81] Diagnosis: OBESITY[ICD9: 278.00] Diagnosis: Dietary counseling[ICD9: V65.3] [facility], [facility] CPT- 4: 41340 08/14/2013 ([id number]) PREV VISIT NEW AGE 40-64 Diagnosis: Routine general medical examination at a health care facility[ICD9: V70.0] [facility] CPT-4: 76273 2012 Plan of Care Planned Activity Notes [...] allergy spray. 07/25/2017 [facility] [phone] [facility] (10 min) Simple 07/25/2017 Patient Education: Patient [...] prn antiinflammatories. 02/14/2017 [phone] [facility] [place] (15 min) Moderate 02/14/2017 Patient Education: Patient Medication Summary Completed 02/14/2017 Patient Education: Obesity Completed 02/14/2017 [facility]: [facility] [phone] [facility] [place] (15 min) Moderate 01/18/2017 Visit Plan: [...] surrogate. 09/26/2016 [facility] [phone] [id number] [facility] - Annual Wellness Visit 09/26/2016 Patient [...] antiinflammatories 09/19/2016 Appointment: Michaela Quinteros WPtel: [phone] [facility] (15 min) Moderate 09/19/2016 Patient Education: Patient [...] of control. 05/01/2016 Appointment: Michaela Quinteros WPtel: [phone] [facility] (15 min) Moderate 05/01/2016 Patient Education: Patient [...] of control. 09/07/2014 Appointment: Michaela Quinteros WPtel: [phone] [facility] Follow up 09/07/2014 Patient Education: Patient Medication [...] exercise program. 06/16/2014 Appointment: Michaela Quinteros WPtel: [address] [place], [place] [id number] Follow up 06/16/2014 Patient Education: Patient Medication Summary Completed 06/16/2014 Patient Education: Hypertension Completed 06/16/2014 Appointment: Michaela Quinteros WPtel: [address] [place], [place] [email or web address] Nurse Visit 12/17/2013 Patient Education: Patient Medication Summary Completed 12/17/2013 Visit Plan: Esophageal Reflux - the patient has been counseled against excessive intake of caffiene, spicy foods, peppermint, and cinnamon - all of which can exacerbate esophageal reflux. The patient is to take medications as prescribed and call the office if the symptoms are not improving. 12/16/2013 Appointment: Michaela Quinteros WPtel: [address] [place], [place] [phone] Follow up 12/16/2013 Patient Education: Patient Medication [...] is decreased. 08/14/2013 Appointment: Michaela Quinteros WPtel: [facility] Other 08/14/2013 Patient Education: Patient Medication Summary [...] functioning. 02/12/2013 Appointment: [facility] [phone] [facility] [place] New Patient 02/12/2013 Patient Education: Patient [...]
--- OUTSIDE RECORDS SUMMARY | 2018-02-28 07:57 | XMS REPORT | Continuity of Care Document ---
Author Author [facility] Organization [facility] Address Unknown Phone Unavailable Allergies Active Description Code Type Severity Reaction Onset Reported/Identified Relationship to Patient Clinical Status Yes Sulfa (Sulfonamide Antibiotics) [id number] Drug Allergy Unknown N/A 2011 Medications There is no data. Problems Date Dx Coded Attending Type Code Diagnosis Diagnosed By 09/15/2011 Ot 553.20 VENTRAL HERNIA NOS 03/27/2012 Ot 174.9 MALIGN NEOPL BREAST NOS 04/10/2012 Ot 174.9 MALIGN NEOPL BREAST NOS 08/05/2012 Ot 174.9 MALIGN NEOPL BREAST NOS 08/05/2012 Ot V45.77 ACQRD ABSENCE OF GENITAL ORGANS 08/05/2012 Ot V58.0 ENCOUNTER FOR RADIOTHERAPY 08/05/2012 Ot V86.0 ESTROGEN RECEPTOR POSITIVE STATUS [ER+] 11/24/2012 Ot 174.9 MALIGN NEOPL BREAST NOS 11/24/2012 Ot V86.0 ESTROGEN RECEPTOR POSITIVE STATUS [ER+] 03/23/2013 JASPAL OLIVEIRA MD Ot 174.9 MALIGN NEOPL BREAST NOS 03/23/2013 JASPAL OLIVEIRA MD Ot V86.0 ESTROGEN RECEPTOR POSITIVE STATUS [ER+] 07/06/2013 JASPAL OLIVEIRA MD Ot 174.9 MALIGN NEOPL BREAST NOS 07/06/2013 JASPAL OLIVEIRA MD Ot V86.0 ESTROGEN RECEPTOR POSITIVE STATUS [ER+] 10/06/2013 JASPAL OLIVEIRA MD Ot 174.9 MALIGN NEOPL BREAST NOS 10/06/2013 JASPAL OLIVEIRA MD Ot V86.0 ESTROGEN RECEPTOR POSITIVE STATUS [ER+] 01/19/2014 JASPAL OLIVEIRA MD Ot 174.9 MALIGN NEOPL BREAST NOS 01/19/2014 JASPAL OLIVEIRA MD Ot V86.0 ESTROGEN RECEPTOR POSITIVE STATUS [ER+] 04/20/2014 JASPAL OLIVEIRA MD Ot 174.9 MALIGN NEOPL BREAST NOS 04/20/2014 JASPAL OLIVEIRA MD Ot V86.0 ESTROGEN RECEPTOR POSITIVE STATUS [ER+] 04/23/2014 JASPAL OLIVEIRA MD K Ot 174.9 04/23/2014 TEE BAIG, JASPAL Pederson Ot V86.0 05/29/2014 TEE BAIG, JASPAL Pederson Ot 174.9 05/29/2014 TEE BAIG, JASPAL Pederson Ot V86.0 07/20/2014 TEE BAIG, JASPAL Pederson Ot 174.9 MALIGN NEOPL BREAST NOS 07/20/2014 TEE BAIG, JASPAL Pederson Ot V86.0 ESTROGEN RECEPTOR POSITIVE STATUS [ER+] 07/27/2014 TEE BAIG, JASPAL Pederson Ot 174.9 07/27/2014 TEE BAIG, JASPAL Pederson Ot V86.0 07/28/2014 TEE BAIG, JASPAL Pederson Ot 174.9 07/28/2014 TEE BAIG, JASPAL Pederson Ot V86.0 09/17/2014 TEE BAIG, JASPAL Pederson Ot 174.9 09/17/2014 TEE BAIG, JASPAL Pederson Ot V86.0 09/30/2014 TEE BAIG, JASPAL Pederson Ot 174.9 09/30/2014 TEE BAIG, JASPAL Pederson Ot V86.0 10/09/2014 ROSA RANDALL Ot 174.9 10/26/2014 TEE BAIG, JASPAL Pederson Ot 174.9 MALIGN NEOPL BREAST NOS 10/26/2014 TEE BAIG, JASPAL Pederson Ot V86.0 ESTROGEN RECEPTOR POSITIVE STATUS [ER+] 01/13/2015 TEE BAIG, JASPAL Pederson Ot 174.9 01/13/2015 TEE BAIG, JASPAL Pederson Ot V86.0 01/13/2015 TEE BAIG, JASPAL Pederson Ot 174.9 01/13/2015 TEE BAIG, JASPAL Pederson Ot V86.0 01/19/2015 TEE BAIG, JASPAL Pederson Ot 174.9 01/19/2015 TEE BAIG, JASPAL Bg Ot V86.0 01/20/2015 TEE BAIG, JASPAL Pederson Ot 174.9 01/20/2015 TEE BAIG, JASPAL Pederson Ot V86.0 01/27/2015 TEE BAIG, JASPAL Pederson Ot 174.9 01/27/2015 TEE BAIG, JASPAL Pederson Ot V86.0 02/23/2015 TEE BAIG, JASPAL Pederson Ot 174.9 02/23/2015 TEE BAIG, JASPAL Pederson Ot V86.0 03/10/2015 TEE BAIG, JASPAL Pederson Ot 174.9 MALIGN NEOPL BREAST NOS 03/10/2015 TEE BAIG, JASPAL Pederson Ot V86.0 ESTROGEN RECEPTOR POSITIVE STATUS [ER+] 05/04/2015 TEE BAIG, JASPAL Pederson Ot C50.911 05/04/2015 TEE BAIG, JASPAL Pederson Ot E03.9 05/04/2015 TEE BAIG, JASPAL Pederson Ot E66.9 05/04/2015 TEE BAIG, JASPAL Pederson Ot M81.0 05/04/2015 TEE BAIG, JASPAL Pederson Ot Z17.0 05/04/2015 TEE BAIG, JASPAL Pederson Ot Z68.33 05/04/2015 TEE BAIG, JASPAL Pederson Ot Z79.811 07/07/2015 TEE BAIG, JASPAL Pederson Ot C50.911 07/07/2015 TEE BAIG, JASPAL Pederson Ot E03.9 07/07/2015 TEE BAIG, JASPAL Pederson Ot E66.9 07/07/2015 TEE BAIG, JASPAL Pederson Ot M81.0 07/07/2015 TEE BAIG, JASPAL Pederson Ot Z17.0 07/07/2015 TEE BAIG, JASPAL Pederson Ot Z68.33 07/07/2015 TEE BAIG, JASPAL Pederson Ot Z79.811 08/23/2015 TEE BAIG, JASPAL Pederson Ot C50.911 08/23/2015 TEE BAIG, JASPAL Pederson Ot E03.9 08/23/2015 TEE BAIG, JASPAL Pederson Ot E66.9 08/23/2015 TEE BAIG, JASPAL Pederson Ot M81.0 08/23/2015 TEE BAIG, JASPAL Pederson Ot Z17.0 08/23/2015 TEE BAIG, JASPAL Pederson Ot Z68.33 08/23/2015 TEE BAIG, JASPAL Pederson Ot Z79.811 08/30/2015 TEE BAIG, JASPAL Pederson Ot C50.911 MALIGNANT NEOPLASM OF UNSP SITE OF RIGHT 08/30/2015 TEE BAIG, JASPAL Pederson Ot E03.9 HYPOTHYROIDISM, UNSPECIFIED 08/30/2015 TEE BAIG, JASPAL Pederson Ot E66.9 OBESITY, UNSPECIFIED 08/30/2015 TEE BAIG, JASPAL Pederson Ot M81.0 AGE-RELATED OSTEOPOROSIS W/O CURRENT PAT 08/30/2015 TEE BAIG, JASPAL Pederson Ot Z17.0 ESTROGEN RECEPTOR POSITIVE STATUS [ER+] 08/30/2015 TEE BAIG, JASPAL Pederson Ot Z68.33 BODY MASS INDEX (BMI) 33.0-33.9, ADULT 08/30/2015 TEE BAIG, JASPAL Pederson Ot 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 10/04/2015 Ot V76.12 OTH SCREEN MAMMO-MALIGN NEOPLASM OF JACLYN 10/04/2015 Ot 553.20 VENTRAL HERNIA NOS 10/04/2015 Ot V72.63 PRE- PROCEDURAL LABORATORY EXAMINATION 10/04/2015 Ot V74.8 SCREEN- BACTERIAL DIS NEC 10/04/2015 Ot 793.89 OTH (ABN) FINDINGS ON RADIOLOGICAL EXAMI 10/04/2015 Ot V76.12 OTH SCREEN MAMMO-MALIGN NEOPLASM OF JACLYN 10/04/2015 Ot 611.72 LUMP OR MASS IN BREAST 10/04/2015 Ot 174.9 MALIGN NEOPL BREAST NOS 10/04/2015 Ot 174.9 MALIGN NEOPL BREAST NOS 10/04/2015 Ot V72.63 PRE- PROCEDURAL LABORATORY EXAMINATION 10/04/2015 Ot V72.81 EXAM-PRE- OPERATIVE CARDIOVASCULAR 10/04/2015 Ot V74.8 SCREEN- BACTERIAL DIS NEC 10/04/2015 Ot 174.9 MALIGN NEOPL BREAST NOS 10/04/2015 JASPAL OLIVEIRA MD Ot 174.9 MALIGN NEOPL BREAST NOS 10/04/2015 JASPAL OLIVEIRA MD Ot 174.9 MALIGN NEOPL BREAST NOS 10/04/2015 JASPAL OLIVEIRA MD Ot V10.3 HX OF BREAST MALIGNANCY 10/04/2015 JASPAL OLIVEIRA MD Ot 174.9 MALIGN NEOPL BREAST NOS 10/04/2015 JASPAL OLIVEIRA MD Ot V67.9 FOLLOW-UP EXAM NOS 10/04/2015 ROSA RANDALL Ot 174.9 MALIGN NEOPL BREAST NOS 10/04/2015 JASPAL OLIVEIRA MD, Ot C50.911 MALIGNANT NEOPLASM OF UNSP SITE OF RIGHT 10/04/2015 JASPAL OLIVEIRA MD Ot E03.9 HYPOTHYROIDISM, UNSPECIFIED 10/04/2015 JASPAL OLIVEIRA MD Ot E66.9 OBESITY, UNSPECIFIED 10/04/2015 JASPAL OLIVEIRA MD Ot M81.0 AGE-RELATED OSTEOPOROSIS W/O CURRENT PAT 10/04/2015 JASPAL OLIVEIRA MD Ot Z17.0 ESTROGEN RECEPTOR POSITIVE STATUS [ER+] 10/04/2015 JASPAL OLIVEIRA MD, Ot Z68.33 BODY MASS INDEX (BMI) 33.0-33.9, ADULT 10/04/2015 JASPAL OLIVEIRA MD Ot 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 10/04/2015 JASPAL OLIVEIRA MD, Ot C50.911 MALIGNANT NEOPLASM OF UNSP SITE OF RIGHT 10/04/2015 JASPAL OLIVEIRA MD Ot E03.9 HYPOTHYROIDISM, UNSPECIFIED 10/04/2015 JASPAL OLIVEIRA MD, Ot E66.9 OBESITY, UNSPECIFIED 10/04/2015 JASPAL OLIVEIRA MD, Ot M81.0 AGE-RELATED OSTEOPOROSIS W/O CURRENT PAT 10/04/2015 JASPAL OLIVEIRA MD, Ot Z17.0 ESTROGEN RECEPTOR POSITIVE STATUS [ER+] 10/04/2015 JASPAL OLIVEIRA MD, Ot Z68.33 BODY MASS INDEX (BMI) 33.0-33.9, ADULT 10/04/2015 JASPAL OLIVEIRA MD, Ot 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 10/04/2015 JASPAL OLIVEIRA MD, Ot C50.911 MALIGNANT NEOPLASM OF UNSP SITE OF RIGHT 10/04/2015 JASPAL OLIVEIRA MD, Ot E03.9 HYPOTHYROIDISM, UNSPECIFIED 10/04/2015 JASPAL OLIVEIRA MD, Ot E66.9 OBESITY, UNSPECIFIED 10/04/2015 JASPAL OLIVEIRA MD, Ot M81.0 AGE-RELATED OSTEOPOROSIS W/O CURRENT PAT 10/04/2015 JASPAL OLIVEIRA MD, Ot Z17.0 ESTROGEN RECEPTOR POSITIVE STATUS [ER+] 10/04/2015 JASPAL OLIVEIRA MD, Ot Z68.33 BODY MASS INDEX (BMI) 33.0-33.9, ADULT 10/04/2015 JASPAL OLIVEIRA MD, Ot 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 10/13/2015 JASPAL OLIVEIRA MD, Ot C50.911 MALIGNANT NEOPLASM OF UNSP SITE OF RIGHT 10/13/2015 JASPAL OLIVEIRA MD, Ot E03.9 HYPOTHYROIDISM, UNSPECIFIED 10/13/2015 JASPAL OLIVEIRA MD, Ot E66.9 OBESITY, UNSPECIFIED 10/13/2015 JASPAL OLIVEIRA MD, Ot M81.0 AGE-RELATED OSTEOPOROSIS W/O CURRENT PAT 10/13/2015 JASPAL OLIVEIRA MD, Ot Z17.0 ESTROGEN RECEPTOR POSITIVE STATUS [ER+] 10/13/2015 JASPAL OLIVEIRA MD, Ot Z68.33 BODY MASS INDEX (BMI) 33.0-33.9, ADULT 10/13/2015 JASPAL OLIVEIRA MD, Ot Z79.811 RESIDENTIAL (CURRENT) USE OF AROMATASE INH 10/19/2015 JASPAL OLIVEIRA MD, Ot 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 01/10/2016 JASPAL OLIVEIRA MD, Ot C50.911 MALIGNANT NEOPLASM OF UNSP SITE OF RIGHT 01/10/2016 JASPAL OLIVEIRA MD, Ot E03.9 HYPOTHYROIDISM, UNSPECIFIED 01/10/2016 JASPAL OLIVEIRA MD, Ot E66.9 OBESITY, UNSPECIFIED 01/10/2016 JASPAL OLIVEIRA MD, Ot M81.0 AGE-RELATED OSTEOPOROSIS W/O CURRENT PAT 01/10/2016 JASPAL OLIVEIRA MD, Ot Z17.0 ESTROGEN RECEPTOR POSITIVE STATUS [ER+] 01/10/2016 JASPAL OLIVEIRA MD, Ot Z68.33 BODY MASS INDEX (BMI) 33.0-33.9, ADULT 01/10/2016 JASPAL OLIVEIRA MD, Ot 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 01/11/2016 JASPAL OLIVEIRA MD, Ot C50.911 MALIGNANT NEOPLASM OF UNSP SITE OF RIGHT 01/11/2016 JASPAL OLIVEIRA MD, Ot E03.9 HYPOTHYROIDISM, UNSPECIFIED 01/11/2016 JASPAL OLIVEIRA MD, Ot E66.9 OBESITY, UNSPECIFIED 01/11/2016 JASPAL OLIVEIRA MD, Ot M81.0 AGE-RELATED OSTEOPOROSIS W/O CURRENT PAT 01/11/2016 JASPAL OLIVEIRA MD, Ot Z17.0 ESTROGEN RECEPTOR POSITIVE STATUS [ER+] 01/11/2016 JASPAL OLIVEIRA MD, Ot Z68.33 BODY MASS INDEX (BMI) 33.0-33.9, ADULT 01/11/2016 JASPAL OLIVEIRA MD, Ot Z79.811 RESIDENTIAL (CURRENT) USE OF AROMATASE INH 01/12/2016 JASPAL OLIVEIRA MD, Ot C50.911 MALIGNANT NEOPLASM OF UNSP SITE OF RIGHT 01/12/2016 JASPAL OLIVEIRA MD, Ot E03.9 HYPOTHYROIDISM, UNSPECIFIED 01/12/2016 JASPAL OLIVEIRA MD, Ot E66.9 OBESITY, UNSPECIFIED 01/12/2016 JASPAL OLIVEIRA MD, Ot M81.0 AGE-RELATED OSTEOPOROSIS W/O CURRENT PAT 01/12/2016 JASPAL OLIVEIRA MD, Ot Z17.0 ESTROGEN RECEPTOR POSITIVE STATUS [ER+] 01/12/2016 JASPAL OLIVEIRA MD, Ot Z68.33 BODY MASS INDEX (BMI) 33.0-33.9, ADULT 01/12/2016 JASPAL OLIVEIRA MD, Ot Z79.811 RESIDENTIAL (CURRENT) USE OF AROMATASE INH 02/23/2016 JASPAL OLIVEIRA MD, Ot C50.911 MALIGNANT NEOPLASM OF UNSP SITE OF RIGHT 02/23/2016 JASPAL OLIVEIRA MD, Ot E03.9 HYPOTHYROIDISM, UNSPECIFIED 02/23/2016 JAPSAL OLIVEIRA MD, Ot E66.9 OBESITY, UNSPECIFIED 02/23/2016 JASPAL OLIVEIRA MD, Ot M81.0 AGE-RELATED OSTEOPOROSIS W/O CURRENT PAT 02/23/2016 JASPAL OLIVEIRA MD, Ot Z17.0 ESTROGEN RECEPTOR POSITIVE STATUS [ER+] 02/23/2016 JASPAL OLIVEIRA MD, Ot Z68.33 BODY MASS INDEX (BMI) 33.0-33.9, ADULT 02/23/2016 JASPAL OLIVEIRA MD, Ot Z79.811 RESIDENTIAL (CURRENT) USE OF AROMATASE INH 03/20/2016 JASPAL OLIVEIRA MD, Ot C50.911 MALIGNANT NEOPLASM OF UNSP SITE OF RIGHT 03/20/2016 JASPAL OLIVEIRA MD, Ot E03.9 HYPOTHYROIDISM, UNSPECIFIED 03/20/2016 JASPAL OLIVEIRA MD, Ot E66.9 OBESITY, UNSPECIFIED 03/20/2016 JASPAL OLIVEIRA MD, Ot M81.0 AGE-RELATED OSTEOPOROSIS W/O CURRENT PAT 03/20/2016 JASPAL OLIVEIRA MD, Ot Z17.0 ESTROGEN RECEPTOR POSITIVE STATUS [ER+] 03/20/2016 JASPAL OLIVEIRA MD, Ot Z68.33 BODY MASS INDEX (BMI) 33.0-33.9, ADULT 03/20/2016 JASPAL OLIVEIRA MD, Ot 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 04/10/2016 JASPAL OLIVEIRA MD, Ot C50.911 MALIGNANT NEOPLASM OF UNSP SITE OF RIGHT 04/10/2016 JASPAL OLIVEIRA MD Ot E03.9 HYPOTHYROIDISM, UNSPECIFIED 04/10/2016 JASPAL OLIVEIRA MD, Ot E66.9 OBESITY, UNSPECIFIED 04/10/2016 JASPAL OLIVEIRA MD Ot M81.0 AGE-RELATED OSTEOPOROSIS W/O CURRENT PAT 04/10/2016 JASPAL OLIVEIRA MD, Ot Z17.0 ESTROGEN RECEPTOR POSITIVE STATUS [ER+] 04/10/2016 JASPAL OLIVEIRA MD, Ot Z68.33 BODY MASS INDEX (BMI) 33.0-33.9, ADULT 04/10/2016 JASPAL OLIVEIRA MD, Ot Z79.811 RESIDENTIAL (CURRENT) USE OF AROMATASE INH 05/23/2016 JASPAL OLIVEIRA MD, Ot C50.911 MALIGNANT NEOPLASM OF UNSP SITE OF RIGHT 05/23/2016 JASPAL OLIVEIRA MD Ot E03.9 HYPOTHYROIDISM, UNSPECIFIED 05/23/2016 JASPAL OLIVEIRA MD, Ot E66.9 OBESITY, UNSPECIFIED 05/23/2016 JASPAL OLIVEIRA MD, Ot M81.0 AGE-RELATED OSTEOPOROSIS W/O CURRENT PAT 05/23/2016 JASPAL OLIVEIRA MD, Ot Z17.0 ESTROGEN RECEPTOR POSITIVE STATUS [ER+] 05/23/2016 JASPAL OLIVEIRA MD, Ot Z68.33 BODY MASS INDEX (BMI) 33.0-33.9, ADULT 05/23/2016 JASPAL OLIVEIRA MD, Ot Z79.811 RESIDENTIAL (CURRENT) USE OF AROMATASE INH 07/10/2016 JASPAL OLIVEIRA MD, Ot C50.911 MALIGNANT NEOPLASM OF UNSP SITE OF RIGHT 07/10/2016 JASPAL OLIVEIRA MD, Ot E03.9 HYPOTHYROIDISM, UNSPECIFIED 07/10/2016 JASPAL OLIVEIRA MD, Ot E66.9 OBESITY, UNSPECIFIED 07/10/2016 JASPAL OLIVEIRA MD, Ot M81.0 AGE-RELATED OSTEOPOROSIS W/O CURRENT PAT 07/10/2016 JASPAL OLIVEIRA MD, Ot Z17.0 ESTROGEN RECEPTOR POSITIVE STATUS [ER+] 07/10/2016 JASPAL OLIVEIRA MD, Ot Z68.33 BODY MASS INDEX (BMI) 33.0-33.9, ADULT 07/10/2016 JASPAL OLIVEIRA MD, Ot 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 07/11/2016 JASPAL OLIVEIRA MD, Ot C50.911 MALIGNANT NEOPLASM OF UNSP SITE OF RIGHT 07/11/2016 JASPAL OLIVEIRA MD, Ot E03.9 HYPOTHYROIDISM, UNSPECIFIED 07/11/2016 JASPAL OLIVEIRA MD, Ot E66.9 OBESITY, UNSPECIFIED 07/11/2016 JASPAL OLIVEIRA MD, Ot M81.0 AGE-RELATED OSTEOPOROSIS W/O CURRENT PAT 07/11/2016 JASPAL OLIVEIRA MD, Ot Z17.0 ESTROGEN RECEPTOR POSITIVE STATUS [ER+] 07/11/2016 JASPAL OLIVEIRA MD, Ot Z68.33 BODY MASS INDEX (BMI) 33.0-33.9, ADULT 07/11/2016 JASPAL OLIVEIRA MD, Ot Z79.811 RESIDENTIAL (CURRENT) USE OF AROMATASE INH 10/03/2016 Ot 553.20 VENTRAL HERNIA NOS 10/03/2016 Ot V72.63 PRE- PROCEDURAL LABORATORY EXAMINATION 10/03/2016 Ot V74.8 SCREEN- BACTERIAL DIS NEC 10/03/2016 Ot 793.89 OTH (ABN) FINDINGS ON RADIOLOGICAL EXAMI 10/03/2016 Ot V76.12 OTH SCREEN MAMMO-MALIGN NEOPLASM OF JACLYN 10/03/2016 Ot 611.72 LUMP OR MASS IN BREAST 10/03/2016 Ot 174.9 MALIGN NEOPL BREAST NOS 10/03/2016 Ot 174.9 MALIGN NEOPL BREAST NOS 10/03/2016 Ot V72.63 PRE- PROCEDURAL LABORATORY EXAMINATION 10/03/2016 Ot V72.81 EXAM-PRE- OPERATIVE CARDIOVASCULAR 10/03/2016 Ot V74.8 SCREEN- BACTERIAL DIS NEC 10/03/2016 Ot 174.9 MALIGN NEOPL BREAST NOS 10/03/2016 JASPAL OLIVEIRA MD Ot 174.9 MALIGN NEOPL BREAST NOS 10/03/2016 JASPAL OLIVEIRA MD Ot 174.9 MALIGN NEOPL BREAST NOS 10/03/2016 JASPAL OLIVEIRA MD Ot V10.3 HX OF BREAST MALIGNANCY 10/03/2016 JASPAL OLIVEIRA MD Ot 174.9 MALIGN NEOPL BREAST NOS 10/03/2016 JASPAL OLIVIERA MD Ot V67.9 FOLLOW-UP EXAM NOS 10/03/2016 ROSA RANDALL Ot 174.9 MALIGN NEOPL BREAST NOS 10/03/2016 JASPAL OLIVEIRA MD, Ot C50.911 MALIGNANT NEOPLASM OF UNSP SITE OF RIGHT 10/03/2016 JASPAL OLIVEIRA MD, Ot E03.9 HYPOTHYROIDISM, UNSPECIFIED 10/03/2016 JASPAL OLIVEIRA MD Ot E66.9 OBESITY, UNSPECIFIED 10/03/2016 JASPAL OLIVEIRA MD, Ot M81.0 AGE-RELATED OSTEOPOROSIS W/O CURRENT PAT 10/03/2016 JASPAL OLIVEIRA MD, Ot Z17.0 ESTROGEN RECEPTOR POSITIVE STATUS [ER+] 10/03/2016 JASPAL OLIVEIRA MD, Ot Z68.33 BODY MASS INDEX (BMI) 33.0-33.9, ADULT 10/03/2016 JSAPAL OLIVEIRA MD, Ot 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 10/03/2016 JASPAL OLIVEIRA MD, Ot 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 10/03/2016 JASPAL OLIVEIRA MD, Ot C50.911 MALIGNANT NEOPLASM OF UNSP SITE OF RIGHT 10/03/2016 JASPAL OLIVEIRA MD Ot E03.9 HYPOTHYROIDISM, UNSPECIFIED 10/03/2016 JASPAL OLIVEIRA MD, Ot E66.9 OBESITY, UNSPECIFIED 10/03/2016 JASPAL OLIVEIRA MD, Ot M81.0 AGE-RELATED OSTEOPOROSIS W/O CURRENT PAT 10/03/2016 JASPAL OLIVEIRA MD, Ot Z17.0 ESTROGEN RECEPTOR POSITIVE STATUS [ER+] 10/03/2016 JASPAL OLIVEIRA MD, Ot Z68.33 BODY MASS INDEX (BMI) 33.0-33.9, ADULT 10/03/2016 JASAPL OLIVEIRA MD, Ot 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 10/04/2016 JASPAL OLIVEIRA MD, Ot Z12.31 ENCNTR SCREEN MAMMOGRAM FOR MALIGNANT NE 10/25/2016 JASPAL OLIVEIRA MD, Ot Z12.31 ENCNTR SCREEN MAMMOGRAM FOR MALIGNANT NE 11/02/2016 JASPAL OLIVEIRA MD, Ot 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 11/02/2016 JASPAL OLIVEIRA MD Ot E03.9 HYPOTHYROIDISM, UNSPECIFIED 11/02/2016 JASPAL OLIVEIRA MD, Ot E66.9 OBESITY, UNSPECIFIED 11/02/2016 JASPAL OLIVEIRA MD Ot I10 ESSENTIAL (PRIMARY) HYPERTENSION 11/02/2016 JASPAL OLIVEIRA MD, Ot K21.9 GASTRO-ESOPHAGEAL REFLUX DISEASE WITHOUT 11/02/2016 JASPAL OLIVEIRA MD Ot M19.90 UNSPECIFIED OSTEOARTHRITIS, UNSPECIFIED 11/02/2016 JASPAL OLIVEIRA MD, Ot M81.8 OTHER OSTEOPOROSIS WITHOUT CURRENT PATHO 11/02/2016 JASPAL OLIVEIRA MD, Ot Z17.0 ESTROGEN RECEPTOR POSITIVE STATUS [ER+] 11/02/2016 JASPAL OLIVEIRA MD, Ot Z68.33 BODY MASS INDEX (BMI) 33.0-33.9, ADULT 11/02/2016 JASPAL OLIVEIRA MD, Ot 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 11/02/2016 JASPAL OLIVEIRA MD Ot Z92.3 PERSONAL HISTORY OF IRRADIATION 11/30/2016 JASPAL OLIVEIRA MD, Ot 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 11/30/2016 JASPAL OLIVEIRA MD Ot E03.9 HYPOTHYROIDISM, UNSPECIFIED 11/30/2016 JASPAL OLIVEIRA MD, Ot E66.9 OBESITY, UNSPECIFIED 11/30/2016 JASPAL OLIVEIRA MD Ot I10 ESSENTIAL (PRIMARY) HYPERTENSION 11/30/2016 JASPAL OLIVEIRA MD Ot K21.9 GASTRO-ESOPHAGEAL REFLUX DISEASE WITHOUT 11/30/2016 JASPAL OLIVEIRA MD, Ot M19.90 UNSPECIFIED OSTEOARTHRITIS, UNSPECIFIED 11/30/2016 JASPAL OLIVEIRA MD, Ot M81.8 OTHER OSTEOPOROSIS WITHOUT CURRENT PATHO 11/30/2016 JASPAL OLIVEIRA MD, Ot Z17.0 ESTROGEN RECEPTOR POSITIVE STATUS [ER+] 11/30/2016 JASPAL OLIVEIRA MD, Ot Z68.33 BODY MASS INDEX (BMI) 33.0-33.9, ADULT 11/30/2016 JASPAL OLIVEIRA MD, Ot 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 11/30/2016 JASPAL OLIVEIRA MD, Ot Z92.3 PERSONAL HISTORY OF IRRADIATION 01/30/2017 JASPAL OLIVEIRA MD, Ot 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 01/30/2017 JASPAL OLIVEIRA MD, Ot E03.9 HYPOTHYROIDISM, UNSPECIFIED 01/30/2017 JASPAL OLIVEIRA MD, Ot E66.9 OBESITY, UNSPECIFIED 01/30/2017 JASPAL OLIVEIRA MD Ot I10 ESSENTIAL (PRIMARY) HYPERTENSION 01/30/2017 JASPAL OLIVEIRA MD, Ot K21.9 GASTRO-ESOPHAGEAL REFLUX DISEASE WITHOUT 01/30/2017 JASPAL OLIVEIRA MD, Ot M19.90 UNSPECIFIED OSTEOARTHRITIS, UNSPECIFIED 01/30/2017 JASPAL OLIVEIRA MD, Ot M81.8 OTHER OSTEOPOROSIS WITHOUT CURRENT PATHO 01/30/2017 JASPAL OLIVEIRA MD, Ot Z17.0 ESTROGEN RECEPTOR POSITIVE STATUS [ER+] 01/30/2017 JASPAL OLIVEIRA MD, Ot Z68.33 BODY MASS INDEX (BMI) 33.0-33.9, ADULT 01/30/2017 JASPAL OLIVEIRA MD, Ot 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 01/30/2017 JASPAL OLIVEIRA MD Ot Z92.3 PERSONAL HISTORY OF IRRADIATION 02/26/2017 ANAHI DURAN APRN Ot M81.0 AGE-RELATED OSTEOPOROSIS W/O CURRENT PAT 03/22/2017 ANAHI DURAN APRN Ot M81.0 AGE-RELATED OSTEOPOROSIS W/O CURRENT PAT 04/26/2017 Ot 793.89 OTH (ABN) FINDINGS ON RADIOLOGICAL EXAMI 04/26/2017 Ot V76.12 OTH SCREEN MAMMO-MALIGN NEOPLASM OF JACLYN 04/26/2017 Ot 611.72 LUMP OR MASS IN BREAST 04/26/2017 Ot 174.9 MALIGN NEOPL BREAST NOS 04/26/2017 Ot 174.9 MALIGN NEOPL BREAST NOS 04/26/2017 Ot V72.63 PRE- PROCEDURAL LABORATORY EXAMINATION 04/26/2017 Ot V72.81 EXAM-PRE- OPERATIVE CARDIOVASCULAR 04/26/2017 Ot V74.8 SCREEN- BACTERIAL DIS NEC 04/26/2017 Ot 174.9 MALIGN NEOPL BREAST NOS 04/26/2017 JASPAL OLIVEIRA MD Ot 174.9 MALIGN NEOPL BREAST NOS 04/26/2017 JASPAL OLIVEIRA MD Ot 174.9 MALIGN NEOPL BREAST NOS 04/26/2017 JASPAL OLIVEIRA MD Ot V10.3 HX OF BREAST MALIGNANCY 04/26/2017 JASPAL OLIVEIRA MD Ot 174.9 MALIGN NEOPL BREAST NOS 04/26/2017 JASPAL OLIVEIRA MD Ot V67.9 FOLLOW-UP EXAM NOS 04/26/2017 [facility] 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 SUPERVISOR Ot 174.9 MALIGN NEOPL BREAST NOS 04/26/2017 JASPAL OLIVEIRA MD Ot C50.911 MALIGNANT NEOPLASM OF UNSP SITE OF RIGHT 04/26/2017 JASPAL OLIVEIRA MD Ot E03.9 HYPOTHYROIDISM, UNSPECIFIED 04/26/2017 JASPAL OLIVEIRA MD Ot E66.9 OBESITY, UNSPECIFIED 04/26/2017 JASPAL OLIVEIRA MD Ot M81.0 AGE-RELATED OSTEOPOROSIS W/O CURRENT PAT 04/26/2017 JASPAL OLIVEIRA MD Ot Z17.0 ESTROGEN RECEPTOR POSITIVE STATUS [ER+] 04/26/2017 JASPAL OLIVEIRA MD Ot Z68.33 BODY MASS INDEX (BMI) 33.0-33.9, ADULT 04/26/2017 JASPAL OLIVEIRA MD Ot Z79.811 RESIDENTIAL (CURRENT) USE OF AROMATASE INH 04/26/2017 JASPAL OLIVEIRA MD Ot 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 04/26/2017 JASPAL OLIVEIRA MD Ot Z12.31 ENCNTR SCREEN MAMMOGRAM FOR MALIGNANT NE 04/26/2017 ANAHI DURAN APRN Ot M81.0 AGE-RELATED OSTEOPOROSIS W/O CURRENT PAT 04/27/2017 TRACIE DONOVAN MD, Ot 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 04/27/2017 TRACIE DONOVAN MD Ot E03.9 HYPOTHYROIDISM, UNSPECIFIED 04/27/2017 TRACIE DONOVAN MD Ot E66.9 OBESITY, UNSPECIFIED 04/27/2017 TRACIE DONOVAN MD Ot I10 ESSENTIAL (PRIMARY) HYPERTENSION 04/27/2017 TRACIE DONOVAN MD Ot K21.9 GASTRO-ESOPHAGEAL REFLUX DISEASE WITHOUT 04/27/2017 TRACIE DONOVAN MD Ot M19.91 PRIMARY OSTEOARTHRITIS, UNSPECIFIED SITE 04/27/2017 TRACIE DONOVAN MD Ot M81.8 OTHER OSTEOPOROSIS WITHOUT CURRENT PATHO 04/27/2017 TRACIE DONOVAN MD Ot Z17.0 ESTROGEN RECEPTOR POSITIVE STATUS [ER+] 04/27/2017 TRACIE DONOVAN MD Ot Z68.33 BODY MASS INDEX (BMI) 33.0-33.9, ADULT 04/27/2017 TRACIE DONOVAN MD Ot 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 04/27/2017 TRACIE DONOVAN MD Ot Z92.3 PERSONAL HISTORY OF IRRADIATION 05/18/2017 TRACIE DONOVAN MD Ot 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 05/18/2017 TRACIE DONOVAN MD Ot E03.8 OTHER SPECIFIED HYPOTHYROIDISM 05/18/2017 TRACIE DONOVAN MD Ot M81.0 AGE-RELATED OSTEOPOROSIS W/O CURRENT PAT 05/18/2017 TRACIE DONOVAN MD Ot Z78.0 ASYMPTOMATIC MENOPAUSAL STATE 06/05/2017 TRACIE DONOVAN MD Ot 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 06/05/2017 TRACIE DONOVAN MD Ot E03.9 HYPOTHYROIDISM, UNSPECIFIED 06/05/2017 TRACIE DONOVAN MD Ot E66.9 OBESITY, UNSPECIFIED 06/05/2017 TRACIE DONOVAN MD Ot I10 ESSENTIAL (PRIMARY) HYPERTENSION 06/05/2017 TRACIE DONOVAN MD Ot K21.9 GASTRO-ESOPHAGEAL REFLUX DISEASE WITHOUT 06/05/2017 TRACIE DONOVAN MD Ot M19.91 PRIMARY OSTEOARTHRITIS, UNSPECIFIED SITE 06/05/2017 TRACIE DONOVAN MD Ot M81.8 OTHER OSTEOPOROSIS WITHOUT CURRENT PATHO 06/05/2017 TRACIE DONOVAN MD Ot Z17.0 ESTROGEN RECEPTOR POSITIVE STATUS [ER+] 06/05/2017 TRACIE DONOVAN MD Ot Z68.33 BODY MASS INDEX (BMI) 33.0-33.9, ADULT 06/05/2017 TRACIE DONOVAN MD Ot Z79.811 RESIDENTIAL (CURRENT) USE OF AROMATASE INH 06/05/2017 TRACIE DONOVAN MD Ot Z92.3 PERSONAL HISTORY OF IRRADIATION 06/07/2017 TRACIE DONOVAN MD Ot 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 06/07/2017 TRACIE DONOVAN MD Ot E03.8 OTHER SPECIFIED HYPOTHYROIDISM 06/07/2017 TRACIE DONOVAN MD Ot M81.0 AGE-RELATED OSTEOPOROSIS W/O CURRENT PAT 06/07/2017 TRACIE DONOVAN MD Ot Z78.0 ASYMPTOMATIC MENOPAUSAL STATE 06/08/2017 TRACIE DONOVAN MD, Ot 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 06/08/2017 TRACIE DONOVAN MD Ot E03.9 HYPOTHYROIDISM, UNSPECIFIED 06/08/2017 TRACIE DONOVAN MD Ot E66.9 OBESITY, UNSPECIFIED 06/08/2017 TRACIE DONOVAN MD Ot I10 ESSENTIAL (PRIMARY) HYPERTENSION 06/08/2017 TRACIE DONOVAN MD Ot K21.9 GASTRO-ESOPHAGEAL REFLUX DISEASE WITHOUT 06/08/2017 TRACIE DONOVAN MD Ot M19.91 PRIMARY OSTEOARTHRITIS, UNSPECIFIED SITE 06/08/2017 TRACIE DONOVAN MD Ot M81.8 OTHER OSTEOPOROSIS WITHOUT CURRENT PATHO 06/08/2017 TRACIE DONOVAN MD Ot Z17.0 ESTROGEN RECEPTOR POSITIVE STATUS [ER+] 06/08/2017 TRACIE DONOVAN MD Ot Z68.33 BODY MASS INDEX (BMI) 33.0-33.9, ADULT 06/08/2017 TRACIE DONOVAN MD Ot Z79.811 RESIDENTIAL (CURRENT) USE OF AROMATASE INH 06/08/2017 TRACIE DONOVAN MD Ot Z92.3 PERSONAL HISTORY OF IRRADIATION 06/18/2017 TRACIE DONOVAN MD, Ot 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 06/18/2017 TRACIE DONOVAN MD Ot E03.8 OTHER SPECIFIED HYPOTHYROIDISM 06/18/2017 TRACIE DONOVAN MD Ot M81.0 AGE-RELATED OSTEOPOROSIS W/O CURRENT PAT 06/18/2017 TRACIE DONOVAN MD Ot Z78.0 ASYMPTOMATIC MENOPAUSAL STATE 07/25/2017 TRACIE DONOVAN MD Ot 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 07/25/2017 TRACIE DONOVAN MD Ot E03.9 HYPOTHYROIDISM, UNSPECIFIED 07/25/2017 TRACIE DONOVAN MD Ot E66.9 OBESITY, UNSPECIFIED 07/25/2017 TRACIE DONOVAN MD Ot I10 ESSENTIAL (PRIMARY) HYPERTENSION 07/25/2017 TRACIE DONOVAN MD Ot K21.9 GASTRO-ESOPHAGEAL REFLUX DISEASE WITHOUT 07/25/2017 TRACIE DONOVAN MD Ot M19.91 PRIMARY OSTEOARTHRITIS, UNSPECIFIED SITE 07/25/2017 TRACIE DONOVAN MD Ot M81.8 OTHER OSTEOPOROSIS WITHOUT CURRENT PATHO 07/25/2017 TRACIE DONOVAN MD Ot Z17.0 ESTROGEN RECEPTOR POSITIVE STATUS [ER+] 07/25/2017 TRACIE DONOVAN MD Ot Z68.33 BODY MASS INDEX (BMI) 33.0-33.9, ADULT 07/25/2017 TRACIE DONOVAN MD Ot Z79.811 RESIDENTIAL (CURRENT) USE OF AROMATASE INH 07/25/2017 TRACIE DONOVAN MD Ot Z92.3 PERSONAL HISTORY OF IRRADIATION 07/26/2017 TRACIE DONOVAN MD Ot 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 07/26/2017 TRACIE DONOVAN MD Ot E03.9 HYPOTHYROIDISM, UNSPECIFIED 07/26/2017 TRACIE DONOVAN MD Ot E66.9 OBESITY, UNSPECIFIED 07/26/2017 TRACIE DONOVAN MD Ot I10 ESSENTIAL (PRIMARY) HYPERTENSION 07/26/2017 TRACIE DONVOAN MD Ot K21.9 GASTRO-ESOPHAGEAL REFLUX DISEASE WITHOUT 07/26/2017 TRACIE DONOVAN MD Ot M19.91 PRIMARY OSTEOARTHRITIS, UNSPECIFIED SITE 07/26/2017 TRACIE DONOVAN MD Ot M81.8 OTHER OSTEOPOROSIS WITHOUT CURRENT PATHO 07/26/2017 TRACIE DONOVAN MD Ot Z17.0 ESTROGEN RECEPTOR POSITIVE STATUS [ER+] 07/26/2017 TRACIE DONOVAN MD Ot Z68.33 BODY MASS INDEX (BMI) 33.0-33.9, ADULT 07/26/2017 TRACIE DONOVAN MD Ot Z79.811 RESIDENTIAL (CURRENT) USE OF AROMATASE INH 07/26/2017 TRACIE DONOVAN MD Ot Z92.3 PERSONAL HISTORY OF IRRADIATION 09/11/2017 ANAHI DURAN APRN Ot M81.0 AGE-RELATED OSTEOPOROSIS W/O CURRENT PAT 09/16/2017 ANAHI DURAN APRN Ot M81.0 AGE-RELATED OSTEOPOROSIS W/O CURRENT PAT 09/19/2017 Ot 174.9 MALIGN NEOPL BREAST NOS 09/19/2017 JASPAL OLIVEIRA MD Ot 174.9 MALIGN NEOPL BREAST NOS 09/19/2017 JASPAL OLIVEIRA MD Ot 174.9 MALIGN NEOPL BREAST NOS 09/19/2017 JASPAL OLIVEIRA MD Ot V10.3 HX OF BREAST MALIGNANCY 09/19/2017 JASPAL OLIVEIRA MD Ot 174.9 MALIGN NEOPL BREAST NOS 09/19/2017 JASPAL OLIVEIRA MD Ot V67.9 FOLLOW-UP EXAM NOS 09/19/2017 RANDALLROSA Montes [facility] OFFICE SUPERVISOR Ot 174.9 MALIGN NEOPL BREAST NOS 09/19/2017 JASPAL OLIVEIRA MD Ot C50.911 MALIGNANT NEOPLASM OF UNSP SITE OF RIGHT 09/19/2017 JASPAL OLIVEIRA MD Ot E03.9 HYPOTHYROIDISM, UNSPECIFIED 09/19/2017 JASPAL OLIVEIRA MD Ot E66.9 OBESITY, UNSPECIFIED 09/19/2017 JASPAL OLIVEIRA MD Ot M81.0 AGE-RELATED OSTEOPOROSIS W/O CURRENT PAT 09/19/2017 JASPAL OLIVEIRA MD Ot Z17.0 ESTROGEN RECEPTOR POSITIVE STATUS [ER+] 09/19/2017 JASPAL OLIVEIRA MD Ot Z68.33 BODY MASS INDEX (BMI) 33.0-33.9, ADULT 09/19/2017 JASPAL OLIVEIRA MD Ot Z79.811 RESIDENTIAL (CURRENT) USE OF AROMATASE INH 09/19/2017 JASPAL OLIVEIRA MD Ot 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 09/19/2017 JAPSAL OLIVEIRA MD Ot Z12.31 ENCNTR SCREEN MAMMOGRAM FOR MALIGNANT NE 09/19/2017 ANAHI DURAN APRN Ot M81.0 AGE-RELATED OSTEOPOROSIS W/O CURRENT PAT 09/19/2017 TRACIE DONOVAN MD Ot 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 09/19/2017 TRACIE DONOVAN MD Ot E03.8 OTHER SPECIFIED HYPOTHYROIDISM 09/19/2017 TRACIE DONOVAN MD Ot M81.0 AGE-RELATED OSTEOPOROSIS W/O CURRENT PAT 09/19/2017 TRACIE DONOVAN MD Ot Z78.0 ASYMPTOMATIC MENOPAUSAL STATE 09/19/2017 ANAHI DURAN APRN Ot M81.0 AGE-RELATED OSTEOPOROSIS W/O CURRENT PAT 09/20/2017 Ot 174.9 MALIGN NEOPL BREAST NOS 09/20/2017 JASPAL OLIVEIRA MD Ot 174.9 MALIGN NEOPL BREAST NOS 09/20/2017 JASPAL OLIVEIRA MD Ot 174.9 MALIGN NEOPL BREAST NOS 09/20/2017 JASPAL OLIVEIRA MD Ot V10.3 HX OF BREAST MALIGNANCY 09/20/2017 JASPAL OLIVEIRA MD Ot 174.9 MALIGN NEOPL BREAST NOS 09/20/2017 JASPAL OLIVEIRA MD Ot V67.9 FOLLOW-UP EXAM NOS 09/20/2017 RANDALLROSA Montes KULDIP Ot 174.9 MALIGN NEOPL BREAST NOS 09/20/2017 JASPAL OLIVEIRA MD Ot C50.911 MALIGNANT NEOPLASM OF UNSP SITE OF RIGHT 09/20/2017 JASPAL OLIVEIRA MD Ot E03.9 HYPOTHYROIDISM, UNSPECIFIED 09/20/2017 JASPAL OLIVEIRA MD Ot E66.9 OBESITY, UNSPECIFIED 09/20/2017 JASPAL OLIVEIRA MD Ot M81.0 AGE-RELATED OSTEOPOROSIS W/O CURRENT PAT 09/20/2017 JASPAL OLIVEIRA MD Ot Z17.0 ESTROGEN RECEPTOR POSITIVE STATUS [ER+] 09/20/2017 JASPAL OLIVEIRA MD Ot Z68.33 BODY MASS INDEX (BMI) 33.0-33.9, ADULT 09/20/2017 JASPAL OLIVEIRA MD Ot Z79.811 RESIDENTIAL (CURRENT) USE OF AROMATASE INH 09/20/2017 JASPAL OLIVEIRA MD Ot 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 09/20/2017 JASPAL OLIVEIRA MD Ot Z12.31 ENCNTR SCREEN MAMMOGRAM FOR MALIGNANT NE 09/20/2017 ANAHI DURAN APRN Ot M81.0 AGE-RELATED OSTEOPOROSIS W/O CURRENT PAT 09/20/2017 TRACIE DONOVAN MD Ot 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 09/20/2017 TRACIE DONOVAN MD Ot E03.8 OTHER SPECIFIED HYPOTHYROIDISM 09/20/2017 TRACIE DONOVAN MD Ot M81.0 AGE-RELATED OSTEOPOROSIS W/O CURRENT PAT 09/20/2017 TRACIE DONOVAN MD Ot Z78.0 ASYMPTOMATIC MENOPAUSAL STATE 09/20/2017 ANAHI DURAN APRN Ot M81.0 AGE-RELATED OSTEOPOROSIS W/O CURRENT PAT 09/20/2017 TRACIE DONOVAN MD Ot Z12.31 ENCNTR SCREEN MAMMOGRAM FOR MALIGNANT NE 09/20/2017 Ot 174.9 MALIGN NEOPL BREAST NOS 09/20/2017 JASPAL OLIVEIRA MD Ot 174.9 MALIGN NEOPL BREAST NOS 09/20/2017 JASPAL OLIVEIRA MD Ot 174.9 MALIGN NEOPL BREAST NOS 09/20/2017 JASPAL OLIVEIRA MD Ot V10.3 HX OF BREAST MALIGNANCY 09/20/2017 JASPAL OLIVEIRA MD Ot 174.9 MALIGN NEOPL BREAST NOS 09/20/2017 JASPAL OLIVEIRA MD Ot V67.9 FOLLOW-UP EXAM NOS 09/20/2017 RANDALLROSA Montes [facility] OFFICE SUPERVISOR Ot 174.9 MALIGN NEOPL BREAST NOS 09/20/2017 JASPAL OLIVEIRA MD Ot C50.911 MALIGNANT NEOPLASM OF UNSP SITE OF RIGHT 09/20/2017 JASPAL OLIVEIRA MD Ot E03.9 HYPOTHYROIDISM, UNSPECIFIED 09/20/2017 JASPAL OLIVEIRA MD Ot E66.9 OBESITY, UNSPECIFIED 09/20/2017 JASPAL OLIVEIRA MD Ot M81.0 AGE-RELATED OSTEOPOROSIS W/O CURRENT PAT 09/20/2017 JASPAL OLIVEIRA MD Ot Z17.0 ESTROGEN RECEPTOR POSITIVE STATUS [ER+] 09/20/2017 JASPAL OLIVEIRA MD Ot Z68.33 BODY MASS INDEX (BMI) 33.0-33.9, ADULT 09/20/2017 JASPAL OLIVEIRA MD Ot 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 09/20/2017 JASPAL OLIVEIRA MD Ot 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 09/20/2017 JASPAL OLIVEIRA MD Ot Z12.31 ENCNTR SCREEN MAMMOGRAM FOR MALIGNANT NE 09/20/2017 ANAHI DURAN APRN Ot M81.0 AGE-RELATED OSTEOPOROSIS W/O CURRENT PAT 09/20/2017 TRACIE DONOVAN MD Ot 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 09/20/2017 TRACIE DONOVAN MD Ot E03.8 OTHER SPECIFIED HYPOTHYROIDISM 09/20/2017 TRACIE DONOVAN MD Ot M81.0 AGE-RELATED OSTEOPOROSIS W/O CURRENT PAT 09/20/2017 TRACIE DONOVAN MD Ot Z78.0 ASYMPTOMATIC MENOPAUSAL STATE 09/20/2017 ANAHI DURAN APRN Ot M81.0 AGE-RELATED OSTEOPOROSIS W/O CURRENT PAT 09/20/2017 TRACIE DONOVAN MD Ot Z12.31 ENCNTR SCREEN MAMMOGRAM FOR MALIGNANT NE 09/20/2017 Ot 174.9 MALIGN NEOPL BREAST NOS 09/20/2017 JASPAL OLIVEIRA MD Ot 174.9 MALIGN NEOPL BREAST NOS 09/20/2017 JASPAL OLIVEIRA MD Ot 174.9 MALIGN NEOPL BREAST NOS 09/20/2017 JASPAL OLIVEIRA MD Ot V10.3 HX OF BREAST MALIGNANCY 09/20/2017 JASPAL OLIVEIRA MD Ot 174.9 MALIGN NEOPL BREAST NOS 09/20/2017 JASPAL OLIVEIRA MD Ot V67.9 FOLLOW-UP EXAM NOS 09/20/2017 RANDALLROSA Montes KULDIP Ot 174.9 MALIGN NEOPL BREAST NOS 09/20/2017 JASPAL OLIVEIRA MD Ot C50.911 MALIGNANT NEOPLASM OF UNSP SITE OF RIGHT 09/20/2017 JASPAL OLIVEIRA MD Ot E03.9 HYPOTHYROIDISM, UNSPECIFIED 09/20/2017 JASPAL OLIVEIRA MD Ot E66.9 OBESITY, UNSPECIFIED 09/20/2017 JASPAL OLIVEIRA MD Ot M81.0 AGE-RELATED OSTEOPOROSIS W/O CURRENT PAT 09/20/2017 JASPAL OLIVEIRA MD Ot Z17.0 ESTROGEN RECEPTOR POSITIVE STATUS [ER+] 09/20/2017 JASPAL OLIVEIRA MD Ot Z68.33 BODY MASS INDEX (BMI) 33.0-33.9, ADULT 09/20/2017 JASPAL OLIVEIRA MD Ot 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 09/20/2017 JASPAL OLIVEIRA MD Ot 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 09/20/2017 JASPAL OLIVEIRA MD Ot Z12.31 ENCNTR SCREEN MAMMOGRAM FOR MALIGNANT NE 09/20/2017 ANAHI DURAN APRN Ot M81.0 AGE-RELATED OSTEOPOROSIS W/O CURRENT PAT 09/20/2017 TRACIE DONOVAN MD Ot 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 09/20/2017 TRACIE DONOVAN MD Ot E03.8 OTHER SPECIFIED HYPOTHYROIDISM 09/20/2017 TRACIE DONOVAN MD Ot M81.0 AGE-RELATED OSTEOPOROSIS W/O CURRENT PAT 09/20/2017 TRACIE DONOVAN MD Ot Z78.0 ASYMPTOMATIC MENOPAUSAL STATE 09/20/2017 ANAHI DURAN APRN Ot M81.0 AGE-RELATED OSTEOPOROSIS W/O CURRENT PAT 09/20/2017 TRACIE DONOVAN MD Ot Z12.31 ENCNTR SCREEN MAMMOGRAM FOR MALIGNANT NE 09/20/2017 Ot 174.9 MALIGN NEOPL BREAST NOS 09/20/2017 JASPAL OLIVEIRA MD Ot 174.9 MALIGN NEOPL BREAST NOS 09/20/2017 TEE BAIG, JASPAL Pederson Ot 174.9 MALIGN NEOPL BREAST NOS 09/20/2017 JASPAL OLIVEIRA MD Ot V10.3 HX OF BREAST MALIGNANCY 09/20/2017 JASPAL OLIVEIRA MD Ot 174.9 MALIGN NEOPL BREAST NOS 09/20/2017 JASPAL OLIVEIRA MD Ot V67.9 FOLLOW-UP EXAM NOS 09/20/2017 PRAKASH ROSA Jyoti CHRISTIANSEN Ot 174.9 MALIGN NEOPL BREAST NOS 09/20/2017 JASPAL OLIVEIRA MD Ot C50.911 MALIGNANT NEOPLASM OF UNSP SITE OF RIGHT 09/20/2017 JASPAL OLIVEIRA MD Ot E03.9 HYPOTHYROIDISM, UNSPECIFIED 09/20/2017 JASPAL OLIVEIRA MD Ot E66.9 OBESITY, UNSPECIFIED 09/20/2017 JASPAL OLIVEIRA MD Ot M81.0 AGE-RELATED OSTEOPOROSIS W/O CURRENT PAT 09/20/2017 JASPAL OLIVEIRA MD Ot Z17.0 ESTROGEN RECEPTOR POSITIVE STATUS [ER+] 09/20/2017 JASPAL OLIVEIRA MD Ot Z68.33 BODY MASS INDEX (BMI) 33.0-33.9, ADULT 09/20/2017 JASPAL OLIVEIRA MD Ot 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 09/20/2017 JASPAL OLIVEIRA MD Ot 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 09/20/2017 JASPAL OLIVEIRA MD Ot Z12.31 ENCNTR SCREEN MAMMOGRAM FOR MALIGNANT NE 09/20/2017 ANAHI DURAN APRN Ot M81.0 AGE-RELATED OSTEOPOROSIS W/O CURRENT PAT 09/20/2017 TRACIE DONOVAN MD Ot 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 09/20/2017 TRACIE DONOVAN MD Ot E03.8 OTHER SPECIFIED HYPOTHYROIDISM 09/20/2017 TRACIE DONOVAN MD Ot M81.0 AGE-RELATED OSTEOPOROSIS W/O CURRENT PAT 09/20/2017 TRACIE DONOVAN MD Ot Z78.0 ASYMPTOMATIC MENOPAUSAL STATE 09/20/2017 ANAHI DURAN APRN Ot M81.0 AGE-RELATED OSTEOPOROSIS W/O CURRENT PAT 09/20/2017 TRACIE DONOVAN MD Ot Z12.31 ENCNTR SCREEN MAMMOGRAM FOR MALIGNANT NE 09/21/2017 Ot 174.9 MALIGN NEOPL BREAST NOS 09/21/2017 JASPAL OLIVEIRA MD Ot 174.9 MALIGN NEOPL BREAST NOS 09/21/2017 JASPAL OLIVEIRA MD Ot 174.9 MALIGN NEOPL BREAST NOS 09/21/2017 JASPAL OLIVEIRA MD Ot V10.3 HX OF BREAST MALIGNANCY 09/21/2017 JASPAL OLIVEIRA MD Ot 174.9 MALIGN NEOPL BREAST NOS 09/21/2017 JASPAL OLIVEIRA MD Ot V67.9 FOLLOW-UP EXAM NOS 09/21/2017 [facility] SUPERVIS[facility] Ot 174.9 MALIGN NEOPL BREAST NOS 09/21/2017 JASPAL OLIVEIRA MD Ot C50.911 MALIGNANT NEOPLASM OF UNSP SITE OF RIGHT 09/21/2017 JASPAL OLIVEIRA MD Ot E03.9 HYPOTHYROIDISM, UNSPECIFIED 09/21/2017 JASPAL OLIVEIRA MD, Ot E66.9 OBESITY, UNSPECIFIED 09/21/2017 JASPAL OLIVEIRA MD Ot M81.0 AGE-RELATED OSTEOPOROSIS W/O CURRENT PAT 09/21/2017 JASPAL OLIVEIRA MD, Ot Z17.0 ESTROGEN RECEPTOR POSITIVE STATUS [ER+] 09/21/2017 JASPAL OLIVEIRA MD Ot Z68.33 BODY MASS INDEX (BMI) 33.0-33.9, ADULT 09/21/2017 JASPAL OLIVEIRA MD Ot 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 09/21/2017 JASPAL OLIVEIRA MD, Ot 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 09/21/2017 JASPAL OLIVEIRA MD Ot Z12.31 ENCNTR SCREEN MAMMOGRAM FOR MALIGNANT NE 09/21/2017 ANAHI DURAN APRN Ot M81.0 AGE-RELATED OSTEOPOROSIS W/O CURRENT PAT 09/21/2017 TRACIE DONOVAN MD, Ot 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 09/21/2017 TRACIE DONOVAN MD Ot E03.8 OTHER SPECIFIED HYPOTHYROIDISM 09/21/2017 TRACIE DONOVAN MD Ot M81.0 AGE-RELATED OSTEOPOROSIS W/O CURRENT PAT 09/21/2017 TRACIE DONOVAN MD, Ot Z78.0 ASYMPTOMATIC MENOPAUSAL STATE 09/21/2017 ANAHI DURAN APRN Ot M81.0 AGE-RELATED OSTEOPOROSIS W/O CURRENT PAT 09/21/2017 TRACIE DONOVAN MD Ot Z12.31 ENCNTR SCREEN MAMMOGRAM FOR MALIGNANT NE 09/21/2017 Ot 174.9 MALIGN NEOPL BREAST NOS 09/21/2017 JASPAL OLIVEIRA MD Ot 174.9 MALIGN NEOPL BREAST NOS 09/21/2017 JASPAL OLIVEIRA MD Ot 174.9 MALIGN NEOPL BREAST NOS 09/21/2017 JASPAL OLIVEIRA MD Ot V10.3 HX OF BREAST MALIGNANCY 09/21/2017 JASPAL OLIVEIRA MD Ot 174.9 MALIGN NEOPL BREAST NOS 09/21/2017 JASPAL OLIVEIRA MD Ot V67.9 FOLLOW-UP EXAM NOS 09/21/2017 [facility] OFF[facility] SUPERVIS[facility] Ot 174.9 MALIGN NEOPL BREAST NOS 09/21/2017 JASPAL OLIVEIRA MD Ot C50.911 MALIGNANT NEOPLASM OF UNSP SITE OF RIGHT 09/21/2017 JASPAL OLIVEIRA MD Ot E03.9 HYPOTHYROIDISM, UNSPECIFIED 09/21/2017 JASPAL OLIVEIRA MD Ot E66.9 OBESITY, UNSPECIFIED 09/21/2017 JASPAL OLIVEIRA MD Ot M81.0 AGE-RELATED OSTEOPOROSIS W/O CURRENT PAT 09/21/2017 JASPAL OLIVEIRA MD Ot Z17.0 ESTROGEN RECEPTOR POSITIVE STATUS [ER+] 09/21/2017 JASPAL OLIVEIRA MD Ot Z68.33 BODY MASS INDEX (BMI) 33.0-33.9, ADULT 09/21/2017 JASPAL OLIVEIRA MD Ot 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 09/21/2017 JASPAL OLIVEIRA MD Ot 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 09/21/2017 JASPAL OLIVEIRA MD Ot Z12.31 ENCNTR SCREEN MAMMOGRAM FOR MALIGNANT NE 09/21/2017 ANAHI DURAN APRN Ot M81.0 AGE-RELATED OSTEOPOROSIS W/O CURRENT PAT 09/21/2017 TRACIE DONOVAN MD Ot 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 09/21/2017 TRACIE DONOVAN MD Ot E03.8 OTHER SPECIFIED HYPOTHYROIDISM 09/21/2017 TRACIE DONOVAN MD Ot M81.0 AGE-RELATED OSTEOPOROSIS W/O CURRENT PAT 09/21/2017 TRACIE DONOVAN MD Ot Z78.0 ASYMPTOMATIC MENOPAUSAL STATE 09/21/2017 ANAHI DURAN APRN Ot M81.0 AGE-RELATED OSTEOPOROSIS W/O CURRENT PAT 09/21/2017 TRACIE DONOVAN MD Ot Z12.31 ENCNTR SCREEN MAMMOGRAM FOR MALIGNANT NE 09/21/2017 ANAHI DURAN APRN Ot I49.9 CARDIAC ARRHYTHMIA, UNSPECIFIED 09/24/2017 Ot 174.9 MALIGN NEOPL BREAST NOS 09/24/2017 JASPAL OLIVEIRA MD Ot 174.9 MALIGN NEOPL BREAST NOS 09/24/2017 JASPAL OLIVEIRA MD Ot 174.9 MALIGN NEOPL BREAST NOS 09/24/2017 JASPAL OLIVEIRA MD Ot V10.3 HX OF BREAST MALIGNANCY 09/24/2017 JASPAL OLIVEIRA MD Ot 174.9 MALIGN NEOPL BREAST NOS 09/24/2017 JASPAL OLIVEIRA MD Ot V67.9 FOLLOW-UP EXAM NOS 09/24/2017 PRAKASH ROSA [facility] OFFICE SUPERVISOR Ot 174.9 MALIGN NEOPL BREAST NOS 09/24/2017 JASPAL OLIVEIRA MD Ot C50.911 MALIGNANT NEOPLASM OF UNSP SITE OF RIGHT 09/24/2017 JASPAL OLIVEIRA MD Ot E03.9 HYPOTHYROIDISM, UNSPECIFIED 09/24/2017 JASPAL OLIVEIRA MD Ot E66.9 OBESITY, UNSPECIFIED 09/24/2017 JASPAL OLIVEIRA MD Ot M81.0 AGE-RELATED OSTEOPOROSIS W/O CURRENT PAT 09/24/2017 JASPAL OLIVEIRA MD Ot Z17.0 ESTROGEN RECEPTOR POSITIVE STATUS [ER+] 09/24/2017 JASPAL OLIVEIRA MD Ot Z68.33 BODY MASS INDEX (BMI) 33.0-33.9, ADULT 09/24/2017 JASPAL OLIVEIRA MD Ot Z79.811 RESIDENTIAL (CURRENT) USE OF AROMATASE INH 09/24/2017 JASPAL OLIVEIRA MD Ot 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 09/24/2017 JASPAL OLIVEIRA MD Ot Z12.31 ENCNTR SCREEN MAMMOGRAM FOR MALIGNANT NE 09/24/2017 ANAHI DURAN APRN Ot M81.0 AGE-RELATED OSTEOPOROSIS W/O CURRENT PAT 09/24/2017 TRACIE DONOVAN MD Ot 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 09/24/2017 TRACIE DONOVAN MD Ot E03.8 OTHER SPECIFIED HYPOTHYROIDISM 09/24/2017 TRACIE DONOVAN MD Ot M81.0 AGE-RELATED OSTEOPOROSIS W/O CURRENT PAT 09/24/2017 TRACIE DONOVAN MD Ot Z78.0 ASYMPTOMATIC MENOPAUSAL STATE 09/24/2017 ANAHI DURAN APRN Ot M81.0 AGE-RELATED OSTEOPOROSIS W/O CURRENT PAT 09/24/2017 TRACIE DONOVAN MD Ot 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 09/24/2017 TRACIE DONOVAN MD Ot E03.9 HYPOTHYROIDISM, UNSPECIFIED 09/24/2017 TRACIE DONOVAN MD Ot E66.9 OBESITY, UNSPECIFIED 09/24/2017 TRACIE DONOVAN MD Ot I10 ESSENTIAL (PRIMARY) HYPERTENSION 09/24/2017 TRACIE DONOVAN MD Ot K21.9 GASTRO-ESOPHAGEAL REFLUX DISEASE WITHOUT 09/24/2017 TRACIE DONOVAN MD Ot M19.91 PRIMARY OSTEOARTHRITIS, UNSPECIFIED SITE 09/24/2017 TRACIE DONOVAN MD Ot M81.8 OTHER OSTEOPOROSIS WITHOUT CURRENT PATHO 09/24/2017 TRACIE DONOVAN MD Ot Z17.0 ESTROGEN RECEPTOR POSITIVE STATUS [ER+] 09/24/2017 TRACIE DONOVAN MD Ot Z68.33 BODY MASS INDEX (BMI) 33.0-33.9, ADULT 09/24/2017 TRACIE DONOVAN MD Ot 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 09/24/2017 TRACIE DONOVAN MD Ot Z92.3 PERSONAL HISTORY OF IRRADIATION 09/24/2017 TRACIE DONOVAN MD Ot Z12.31 ENCNTR SCREEN MAMMOGRAM FOR MALIGNANT NE 09/24/2017 ANAHI DURAN APRN Ot I49.9 CARDIAC ARRHYTHMIA, UNSPECIFIED 10/03/2017 ANAHI DURAN APRN Ot I49.9 CARDIAC ARRHYTHMIA, UNSPECIFIED 10/08/2017 TRACIE DONOVAN MD Ot Z12.31 ENCNTR SCREEN MAMMOGRAM FOR MALIGNANT NE 10/08/2017 TRACIE DONOVAN MD Ot Z85.3 PERSONAL HISTORY OF MALIGNANT NEOPLASM O 10/11/2017 TRACIE DONOVAN MD Ot Z12.31 ENCNTR SCREEN MAMMOGRAM FOR MALIGNANT NE 10/11/2017 TRACIE DONOVAN MD Ot Z85.3 PERSONAL HISTORY OF MALIGNANT NEOPLASM O 10/12/2017 ANAHI DURAN APRN Ot M81.0 AGE-RELATED OSTEOPOROSIS W/O CURRENT PAT 10/18/2017 TRACIE DONOVAN MD Ot Z12.31 ENCNTR SCREEN MAMMOGRAM FOR MALIGNANT NE 10/18/2017 TRACIE DONOVAN MD Ot Z85.3 PERSONAL HISTORY OF MALIGNANT NEOPLASM O 10/18/2017 TRACIE DONOVAN MD Ot Z12.31 ENCNTR SCREEN MAMMOGRAM FOR MALIGNANT NE 10/18/2017 TRACIE DONOVAN MD, Ot Z85.3 PERSONAL HISTORY OF MALIGNANT NEOPLASM O 10/18/2017 JASPAL OLIVEIRA MD Ot 174.9 MALIGN NEOPL BREAST NOS 10/18/2017 JASPAL OLIVEIRA MD Ot 174.9 MALIGN NEOPL BREAST NOS 10/18/2017 JASPAL OLIVEIRA MD, Ot V10.3 HX OF BREAST MALIGNANCY 10/18/2017 JASPAL OLIVEIRA MD Ot 174.9 MALIGN NEOPL BREAST NOS 10/18/2017 JASPAL OLIVEIRA MD, Ot V67.9 FOLLOW-UP EXAM NOS 10/18/2017 PRAKASHROSA Jyoti CHRISTIANSEN Ot 174.9 MALIGN NEOPL BREAST NOS 10/18/2017 JASPAL OLIVEIRA MD Ot C50.911 MALIGNANT NEOPLASM OF UNSP SITE OF RIGHT 10/18/2017 JASPAL OLIVEIRA MD, Ot E03.9 HYPOTHYROIDISM, UNSPECIFIED 10/18/2017 JASPAL OLIVEIRA MD, Ot E66.9 OBESITY, UNSPECIFIED 10/18/2017 JASPAL OLIVEIRA MD, Ot M81.0 AGE-RELATED OSTEOPOROSIS W/O CURRENT PAT 10/18/2017 JASPAL OLIVEIRA MD, Ot Z17.0 ESTROGEN RECEPTOR POSITIVE STATUS [ER+] 10/18/2017 JASPAL OLIVEIRA MD Ot Z68.33 BODY MASS INDEX (BMI) 33.0-33.9, ADULT 10/18/2017 JASPAL OLIVEIRA MD, Ot 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 10/18/2017 JASPAL OILVEIRA MD, Ot 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 10/18/2017 JASPAL OLIVEIRA MD, Ot Z12.31 ENCNTR SCREEN MAMMOGRAM FOR MALIGNANT NE 10/18/2017 ANAHI DURAN APRN Ot M81.0 AGE-RELATED OSTEOPOROSIS W/O CURRENT PAT 10/18/2017 TRACIE DONOVAN MD, Ot 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 10/18/2017 TRACIE DONOVAN MD Ot E03.8 OTHER SPECIFIED HYPOTHYROIDISM 10/18/2017 TRACIE DONOVAN MD, Ot M81.0 AGE-RELATED OSTEOPOROSIS W/O CURRENT PAT 10/18/2017 TRACIE DONOVAN MD, Ot Z78.0 ASYMPTOMATIC MENOPAUSAL STATE 10/18/2017 ANAHI DURAN APRN Ot M81.0 AGE-RELATED OSTEOPOROSIS W/O CURRENT PAT 10/18/2017 VENUS MD, HODGES Ot 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 10/18/2017 TRACIE DONOVAN MD Ot E03.9 HYPOTHYROIDISM, UNSPECIFIED 10/18/2017 TRACIE DONOVAN MD Ot E66.9 OBESITY, UNSPECIFIED 10/18/2017 TRACIE DONOVAN MD Ot I10 ESSENTIAL (PRIMARY) HYPERTENSION 10/18/2017 TRACIE DONOVAN MD Ot K21.9 GASTRO-ESOPHAGEAL REFLUX DISEASE WITHOUT 10/18/2017 TRACIE DONOVAN MD Ot M19.91 PRIMARY OSTEOARTHRITIS, UNSPECIFIED SITE 10/18/2017 TRACIE DONOVAN MD Ot M81.8 OTHER OSTEOPOROSIS WITHOUT CURRENT PATHO 10/18/2017 TRACIE DONOVAN MD Ot Z17.0 ESTROGEN RECEPTOR POSITIVE STATUS [ER+] 10/18/2017 TRACIE DONOVAN MD Ot Z68.33 BODY MASS INDEX (BMI) 33.0-33.9, ADULT 10/18/2017 TRACIE DONOVAN MD Ot Z79.811 RESIDENTIAL (CURRENT) USE OF AROMATASE INH 10/18/2017 TRACIE DONOVAN MD Ot Z92.3 PERSONAL HISTORY OF IRRADIATION 10/18/2017 TRACIE DONOVAN MD Ot Z12.31 ENCNTR SCREEN MAMMOGRAM FOR MALIGNANT NE 10/18/2017 TRACIE DONOVAN MD Ot Z85.3 PERSONAL HISTORY OF MALIGNANT NEOPLASM O 10/18/2017 ANAHI DURAN APRN Ot I49.9 CARDIAC ARRHYTHMIA, UNSPECIFIED 10/18/2017 Michael LEIGH MD Ot I49.3 VENTRICULAR PREMATURE DEPOLARIZATION 10/19/2017 TRACIE DONOVAN MD Ot 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 10/19/2017 TRACIE DONOVAN MD Ot E03.9 HYPOTHYROIDISM, UNSPECIFIED 10/19/2017 TRACIE DONOVAN MD Ot E66.9 OBESITY, UNSPECIFIED 10/19/2017 TRACIE DONOVAN MD Ot I10 ESSENTIAL (PRIMARY) HYPERTENSION 10/19/2017 TRACIE DONOVAN MD Ot K21.9 GASTRO-ESOPHAGEAL REFLUX DISEASE WITHOUT 10/19/2017 TRACIE DONOVAN MD Ot M19.91 PRIMARY OSTEOARTHRITIS, UNSPECIFIED SITE 10/19/2017 TRACIE DONOVAN MD Ot M81.8 OTHER OSTEOPOROSIS WITHOUT CURRENT PATHO 10/19/2017 TRACIE DONOVAN MD Ot Z17.0 ESTROGEN RECEPTOR POSITIVE STATUS [ER+] 10/19/2017 TRACIE DONOVAN MD Ot Z68.33 BODY MASS INDEX (BMI) 33.0-33.9, ADULT 10/19/2017 TRACIE DONOVAN MD Ot 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 10/19/2017 TRACIE DONOVAN MD Ot Z92.3 PERSONAL HISTORY OF IRRADIATION 10/19/2017 ANAHI DURAN APRN Ot I49.9 CARDIAC ARRHYTHMIA, UNSPECIFIED 10/26/2017 Michael LEIGH MD Ot E66.8 OTHER OBESITY 10/26/2017 Michael LEIGH MD Ot E78.5 HYPERLIPIDEMIA, UNSPECIFIED 10/26/2017 Michael LEIGH MD Ot I10 ESSENTIAL (PRIMARY) HYPERTENSION 10/26/2017 Michael LEIGH MD Ot R06.02 SHORTNESS OF BREATH 10/29/2017 Michael LEIGH MD Ot E66.8 OTHER OBESITY 10/29/2017 Michael LEIGH MD Ot E78.5 HYPERLIPIDEMIA, UNSPECIFIED 10/29/2017 Micahel LEIGH MD Ot I10 ESSENTIAL (PRIMARY) HYPERTENSION 10/29/2017 Michael LEIGH MD Ot I49.3 VENTRICULAR PREMATURE DEPOLARIZATION 10/29/2017 Michael LEIGH MD Ot R06.02 SHORTNESS OF BREATH 10/31/2017 Michael LEIGH MD Ot E66.8 OTHER OBESITY 10/31/2017 Michael LEIGH MD Ot E78.5 HYPERLIPIDEMIA, UNSPECIFIED 10/31/2017 Michael LEIGH MD Ot I10 ESSENTIAL (PRIMARY) HYPERTENSION 10/31/2017 Michael LEIGH MD Ot I49.3 VENTRICULAR PREMATURE DEPOLARIZATION 10/31/2017 Michael LEIGH MD Ot R06.02 SHORTNESS OF BREATH 11/01/2017 Michael LEIGH MD Ot E66.9 OBESITY, UNSPECIFIED 11/01/2017 Michael LEIGH MD Ot E78.5 HYPERLIPIDEMIA, UNSPECIFIED 11/01/2017 Michael LEIGH MD Ot I08.3 COMB RHEUMATIC DISORD OF MITRAL, AORTIC 11/01/2017 Michael LEIGH MD Ot I10 ESSENTIAL (PRIMARY) HYPERTENSION 11/01/2017 LU BAIG, Michael HOLLAND Ot I49.3 VENTRICULAR PREMATURE DEPOLARIZATION 11/01/2017 Michael LEIGH MD Ot R06.02 SHORTNESS OF BREATH 11/12/2017 Michael LEIGH MD Ot E66.8 OTHER OBESITY 11/12/2017 Michael LEIGH MD Ot E78.5 HYPERLIPIDEMIA, UNSPECIFIED 11/12/2017 Michael LEIGH MD Ot I10 ESSENTIAL (PRIMARY) HYPERTENSION 11/12/2017 Michael LEIGH MD Ot R06.02 SHORTNESS OF BREATH 11/12/2017 Michael LEIGH MD Ot E66.8 OTHER OBESITY 11/12/2017 Michael LEIGH MD Ot E78.5 HYPERLIPIDEMIA, UNSPECIFIED 11/12/2017 Michael LEIGH MD Ot I10 ESSENTIAL (PRIMARY) HYPERTENSION 11/12/2017 Michael LEIGH MD Ot I49.3 VENTRICULAR PREMATURE DEPOLARIZATION 11/12/2017 Michael LEIGH MD Ot R06.02 SHORTNESS OF BREATH 11/14/2017 Michael LEIGH MD Ot E66.9 OBESITY, UNSPECIFIED 11/14/2017 Michael LEIGH MD Ot E78.5 HYPERLIPIDEMIA, UNSPECIFIED 11/14/2017 Michael LEIGH MD Ot I08.3 COMB RHEUMATIC DISORD OF MITRAL, AORTIC 11/14/2017 Michael LEIGH MD Ot I10 ESSENTIAL (PRIMARY) HYPERTENSION 11/14/2017 Michael LEIGH MD Ot I49.3 VENTRICULAR PREMATURE DEPOLARIZATION 11/14/2017 Michael LEIGH MD Ot R06.02 SHORTNESS OF BREATH 11/21/2017 Michael LEIGH MD Ot I49.3 VENTRICULAR PREMATURE DEPOLARIZATION 11/21/2017 Michael LEIGH MD Ot R00.2 PALPITATIONS 12/07/2017 Michael LEIGH MD Ot E66.8 OTHER OBESITY 12/07/2017 Michael LEIGH MD Ot E78.5 HYPERLIPIDEMIA, UNSPECIFIED 12/07/2017 LU BAIG, M AMALIA Ot I10 ESSENTIAL (PRIMARY) HYPERTENSION 12/07/2017 LU BAIG, M AMALIA Ot I49.3 VENTRICULAR PREMATURE DEPOLARIZATION 12/07/2017 LU BAIG, Michael HOLLAND Ot R06.02 SHORTNESS OF BREATH 12/19/2017 TRACIE DONOVAN MD Ot 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 12/19/2017 TRACIE DONOVAN MD Ot E03.9 HYPOTHYROIDISM, UNSPECIFIED 12/19/2017 TRACIE DONOVAN MD Ot E66.9 OBESITY, UNSPECIFIED 12/19/2017 TRACIE DONOVAN MD Ot I10 ESSENTIAL (PRIMARY) HYPERTENSION 12/19/2017 TRACIE DONOVAN MD Ot K21.9 GASTRO-ESOPHAGEAL REFLUX DISEASE WITHOUT 12/19/2017 TRACIE DONOVAN MD Ot M19.91 PRIMARY OSTEOARTHRITIS, UNSPECIFIED SITE 12/19/2017 TRACIE DONOVAN MD Ot M81.8 OTHER OSTEOPOROSIS WITHOUT CURRENT PATHO 12/19/2017 TRACIE DONOVAN MD Ot Z17.0 ESTROGEN RECEPTOR POSITIVE STATUS [ER+] 12/19/2017 TRACIE DONOVAN MD Ot Z68.33 BODY MASS INDEX (BMI) 33.0-33.9, ADULT 12/19/2017 TRACIE DONOVAN MD Ot Z79.811 RESIDENTIAL (CURRENT) USE OF AROMATASE INH 12/19/2017 TRACIE DONOVAN MD Ot Z92.3 PERSONAL HISTORY OF IRRADIATION 12/20/2017 TRACIE DONOVAN MD Ot 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 12/20/2017 TRACIE DONOVAN MD Ot E03.9 HYPOTHYROIDISM, UNSPECIFIED 12/20/2017 TRACIE DONOVAN MD Ot E66.9 OBESITY, UNSPECIFIED 12/20/2017 TRACIE DONOVAN MD Ot I10 ESSENTIAL (PRIMARY) HYPERTENSION 12/20/2017 TRACIE DONOVAN MD Ot K21.9 GASTRO-ESOPHAGEAL REFLUX DISEASE WITHOUT 12/20/2017 TRACIE DONOVAN MD Ot M19.91 PRIMARY OSTEOARTHRITIS, UNSPECIFIED SITE 12/20/2017 TRACIE DONOVAN MD Ot M81.8 OTHER OSTEOPOROSIS WITHOUT CURRENT PATHO 12/20/2017 TRACIE DONOVAN MD Ot Z17.0 ESTROGEN RECEPTOR POSITIVE STATUS [ER+] 12/20/2017 TRACIE DONOVAN MD Ot Z68.33 BODY MASS INDEX (BMI) 33.0-33.9, ADULT 12/20/2017 TRACIE DONOVAN MD Ot 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 12/20/2017 TRACIE DONOVAN MD, Ot Z92.3 PERSONAL HISTORY OF IRRADIATION 12/25/2017 TRACIE DONOVAN MD Ot 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 12/25/2017 TRACIE DONOVAN MD Ot E03.9 HYPOTHYROIDISM, UNSPECIFIED 12/25/2017 TRACIE DONOVAN MD Ot E66.9 OBESITY, UNSPECIFIED 12/25/2017 TRACIE DONOVAN MD Ot I10 ESSENTIAL (PRIMARY) HYPERTENSION 12/25/2017 TRACIE DONOVAN MD Ot K21.9 GASTRO-ESOPHAGEAL REFLUX DISEASE WITHOUT 12/25/2017 TRACIE DONOVAN MD Ot M19.91 PRIMARY OSTEOARTHRITIS, UNSPECIFIED SITE 12/25/2017 TRACIE DONOVAN MD, Ot M81.8 OTHER OSTEOPOROSIS WITHOUT CURRENT PATHO 12/25/2017 TRACIE DONOVAN MD Ot Z17.0 ESTROGEN RECEPTOR POSITIVE STATUS [ER+] 12/25/2017 TRACIE DONOVAN MD Ot Z68.33 BODY MASS INDEX (BMI) 33.0-33.9, ADULT 12/25/2017 TRACIE DONOVAN MD Ot Z79.811 RESIDENTIAL (CURRENT) USE OF AROMATASE INH 12/25/2017 TRACIE DONOVAN MD, Ot Z92.3 PERSONAL HISTORY OF IRRADIATION 12/27/2017 Michael LEIGH MD Ot I49.3 VENTRICULAR PREMATURE DEPOLARIZATION 12/27/2017 Michael LEIGH MD Ot R00.2 PALPITATIONS 01/29/2018 Michael LEIGH MD Ot I49.3 VENTRICULAR PREMATURE DEPOLARIZATION 01/29/2018 Michael LEIGH MD Ot R00.2 PALPITATIONS Procedures There is no data. Results There is no data. Encounters ACCT No. Visit Date/Time Discharge Status Pt. Type Provider Facility Loc./Unit Complaint [id number] 01/30/2018 10:00:00 01/30/2018 23:59:59 CLS Preadmit Michael LEIGH MD Via [facility] CARD R00.2 PALPITATIONS [id number] 11/23/2017 08:07:00 01/29/2018 00:01:00 DIS Outpatient Michael LEIGH MD [facility] CARD R00.2 PALPITATIONS [id number] 12/20/2017 00:10:00 12/20/2017 23:59:59 CLS Preadmit TRACIE DONOVAN MD [facility] ONC [id number] 09/20/2017 10:20:00 12/19/2017 00:01:00 DIS Outpatient TRACIE DONOVAN MD [facility] ONC [id number] 10/31/2017 08:35:00 10/31/2017 23:59:59 CLS Outpatient Michael LEIGH MD [facility] CARD I49.3 [id number] 10/25/2017 07:00:00 10/25/2017 23:59:59 CLS Outpatient Michael LEIGH MD [facility] CARD I49.3 PVC [id number] 10/25/2017 06:57:00 10/25/2017 23:59:59 CLS Outpatient Michael LEIGH MD [facility] CARD R06.02 SOB [id number] 10/05/2017 08:38:00 10/05/2017 23:59:59 CLS Outpatient TRACIE DONOVAN MD [facility] RAD BREAST CA F/U [id number] 09/20/2017 16:18:00 09/20/2017 23:59:59 CLS Outpatient ANAHI DURAN APRN [facility] CARD IRREGULAR RHYTHM [id number] 09/20/2017 10:26:00 09/20/2017 23:59:59 CLS Preadmit TRACIE DONOVAN MD [facility] RAD BREAST CA [id number] 09/10/2017 13:16:00 09/10/2017 23:59:59 CLS Outpatient ANAHI DURAN APRN [facility] SDC OSTEOPOROSIS [id number] 04/26/2017 10:06:00 07/25/2017 00:01:00 DIS Outpatient TRACIE DONOVAN MD [facility] ONC [id number] 05/17/2017 08:26:00 05/17/2017 23:59:59 CLS Outpatient TRACIE DONOVAN MD [facility] RAD E03.8,C50.511,Z78.0 [id number] 02/26/2017 13:00:00 02/26/2017 23:59:59 CLS Outpatient ANAHI DURAN APRN [facility] SDC OSTEOPOROSIS [id number] 11/01/2016 14:40:00 01/30/2017 00:01:00 DIS Outpatient JASPAL OLIVEIRA MD [facility] ONC [id number] 10/03/2016 09:39:00 10/03/2016 23:59:59 CLS Outpatient JASPAL OLIVEIRA MD [facility] BREAST CANCER ROUTINE SCREENING [id number] 04/11/2016 08:50:00 07/10/2016 00:01:00 DIS Outpatient JASPAL OLIVEIRA MD [facility] ONC [id number] 01/11/2016 08:55:00 03/20/2016 09:58:00 DIS Outpatient JASPAL OLIVEIRA MD [facility] ONC [id number] 10/12/2015 08:23:00 01/10/2016 00:01:00 DIS Outpatient JASPAL OLIVEIRA MD [facility] ONC [id number] 10/04/2015 08:23:00 10/04/2015 23:59:59 CLS Outpatient JASPAL OLIVEIRA MD [facility] BREAST CA [id number] 07/13/2015 09:11:00 08/30/2015 00:01:00 DIS Outpatient JASPAL OLIVEIRA MD [facility] ONC [id number] 04/20/2015 08:51:00 04/20/2015 23:59:59 CLS Outpatient JASPAL OLIVEIRA MD [facility] ONC [id number] 01/19/2015 09:20:00 03/10/2015 00:01:00 DIS Outpatient JASPAL OLIVEIRA MD [facility] ONC [id number] 09/21/2014 14:10:00 09/21/2014 23:59:59 CLS Outpatient ROSA RANDALL [facility] RAD BREAST CANCER [id number] 07/28/2014 08:46:00 07/28/2014 23:59:59 CLS Outpatient JASPAL OLIVEIRA MD [facility] ONC [id number] 04/21/2014 08:49:00 07/20/2014 00:01:00 DIS Outpatient JASPAL OLIVEIRA MD [facility] ONC [id number] 01/20/2014 12:55:00 04/20/2014 00:01:00 DIS Outpatient JASPAL OLIVEIRA MD [facility] ONC [id number] 03/31/2014 07:42:00 03/31/2014 23:59:59 CLS Outpatient JASPAL OLIVEIRA MD [facility] RAD BREAST CA [id number] 10/21/2013 13:55:00 01/19/2014 00:01:00 GLORIA Outpatient JASPAL OLIVEIRA MD [facility] ONC [id number] 07/08/2013 13:30:00 10/06/2013 00:01:00 DIS Outpatient JASPAL OLIVEIRA MD [facility] ONC [id number] 09/29/2013 12:19:00 09/29/2013 23:59:59 CLS Outpatient JASPAL OLIVEIRA MD [facility] RAD RT BREAST CA [id number] 04/07/2013 13:24:00 07/06/2013 00:01:00 DIS Outpatient JASPAL OLIVEIRA MD [facility] ONC [id number] 04/09/2013 10:41:00 04/09/2013 23:59:59 CLS Outpatient JASPAL OLIVEIRA MD [facility] RAD SCREENING [id number] 12/23/2012 13:11:00 03/23/2013 00:01:00 GLORIA Outpatient JASPAL OLIVEIRA MD [facility] ONC [id number] 12/13/2012 09:28:00 12/13/2012 23:59:59 CLS Outpatient JASPAL OLIVEIRA MD [facility] RAD CA BREAST [id number] 02/28/2018 12:30:00 Michael Bustos MD [facility] CATH AF [id number] 09/23/2012 14:46:00 Document Registration [id number] 07/25/2012 07:48:00 Document Registration [id number] 04/10/2012 05:32:00 Document Registration [id number] 04/04/2012 13:58:00 Document Registration [id number] 03/27/2012 05:36:00 Document Registration [id number] 03/25/2012 08:48:00 Document Registration [id number] 03/15/2012 12:28:00 Document Registration [id number] 03/11/2012 12:37:00 Document Registration [id number] 02/29/2012 08:28:00 Document Registration [id number] 09/14/2011 08:42:00 Document Registration [id number] 09/13/2011 10:06:00 Document Registration [id number] 02/16/2011 10:51:00 Document Registration 0000 04/08/2017 18:04:58 04/08/2017 23:59:59 [facility] Outpatient
[2018-02-28 08:12] VITALS: BP 133/72
--- NOTE | 2018-02-28 10:15 | Implantation of Loop Monitor ---
Implant of Loop Monitior PROCEDURE PHYSICIAN: Remington Holman MD IMPLANTATION OF LOOP MONITOR REPORT DATE OF PROCEDURE: 02/28/18 ATTENDING PHYSICIAN: Dr. Ronan Holman. REFERRING PHYSICIAN: PERFORMING PHYSICIAN: Dr. Ronan Holman. INDICATION: Diagnosis and Long-term surveillance of possible atrial fibrillation PREOP DIAGNOSIS: Long-term surveillance of atrial fibrillation POSTOP DIAGNOSIS: Atrial fibrillation, s/p implantation of loop recorder. PROCEDURE DETAILS: The patient is a 67 female with history of possible paroxysmal atrial fibrillation requiring diagnosis and long-term surveillance. Therefore implantable loop recorder was discussed and agreed with the patient. Informed consent was taken. All risks and complications were discussed at length. The patient was draped and prepped in the usual sterile fashion. Local anesthesia was lidocaine, which was given in the substernal area close to the 4th intercostal space. Loop monitor was implanted according to the protocol. Steri- Strips were placed at the end of the procedure. There were no complications and the patient tolerated the procedure well. ANESTHESIA: Local anesthesia with lidocaine. COMPLICATIONS: None CONTRAST/FLUOROSCOPY: None CONCLUSION: 1. Successful implantation of loop monitor for atrial fibrillation. 2. No complication and the patient tolerated the procedure well. Remington Holman MD, RS, CCDS Cardiac Electrophysiology Michael HOLMAN MD Feb 28, 2018 10:15 am
== END | disposition home or self-care (01) ==
LOC: CATH 07:47
PROVIDERS: ATTEND Internal Medicine Interventional Cardiology
DX: I48.91 Unspecified atrial fibrillation (principal); I49.3 Ventricular premature depolarization; I08.0 Rheumatic disorders of both mitral and aortic valves; R06.02 Shortness of breath; I10 Essential (primary) hypertension; E78.5 Hyperlipidemia, unspecified; E89.0 Postprocedural hypothyroidism; K21.9 Gastro-esophageal reflux disease without esophagitis; Z79.811 Long term (current) use of aromatase inhibitors; Z79.899 Other long term (current) drug therapy
CPT/HCPCS: 33282

== ENCOUNTER → 2018-03-12 | Outpatient (CLI) | payer MEDICARE, MEDICAID ==
[~2018-03-12] VITALS: Ht 154.9 cm; Wt 81.2 kg
[~2018-03-12] MED LIST changes: +DENOSUMAB 60 MG/1 ML (PROLIA) SQ SCH; -LIDOCAINE 1% INJ 20 ML 20 ML VIAL ONE
[2018-03-12 12:49] VITALS: BP 119/83
== END ==
LOC: SDC 12:25
PROVIDERS: ATTEND Nurse Practitioner Family
DX: M81.0 Age-related osteoporosis without current pathological fracture (principal)
CPT/HCPCS: 96372

== ENCOUNTER → 2018-04-02 | Outpatient (CLI) | payer MEDICARE, MEDICAID ==
[~2018-04-02] MED LIST changes: -DENOSUMAB 60 MG/1 ML (PROLIA) SQ SCH
--- NOTE | 2018-04-02 17:42 | Diagnostic Imaging Report ---
INDICATION: Left-sided posterior chest pain. TIME OF EXAM: 03:21 p.m. FINDINGS: No displaced rib fracture is detected. No definite parenchymal contusion, effusion, or pneumothorax is seen. IMPRESSION: No rib fracture is identified. Dictated by: Dictated on workstation # [id number]
== END ==
LOC: RAD 14:45
PROVIDERS: ATTEND Family Medicine
DX: R07.89 Other chest pain (principal); Z85.3 Personal history of malignant neoplasm of breast
CPT/HCPCS: 71100

== ENCOUNTER → 2018-06-07 | Outpatient (CLI) | payer MEDICARE, MEDICAID | LOC: CARD 07:36 | PROVIDERS: ATTEND Internal Medicine Interventional Cardiology | DX: I49.3 Ventricular premature depolarization (principal); I48.0 Paroxysmal atrial fibrillation | CPT/HCPCS: 93225; 93226 ==

== ENCOUNTER → 2018-09-13 | Outpatient (CLI) | payer MEDICARE, MEDICAID ==
[~2018-09-13] VITALS: Ht 154.9 cm; Wt 81.2 kg
[~2018-09-13] MED LIST changes: +DENOSUMAB 60 MG/1 ML (PROLIA) SQ ONE
[2018-09-13 08:50] VITALS: BP 106/68
== END ==
LOC: SDC 08:46
PROVIDERS: ATTEND Nurse Practitioner Family
DX: M81.0 Age-related osteoporosis without current pathological fracture (principal)
CPT/HCPCS: 96372

== ENCOUNTER → 2018-09-24 | Outpatient (CLI) | payer MEDICARE, MEDICAID ==
[~2018-09-24] MED LIST changes: -DENOSUMAB 60 MG/1 ML (PROLIA) SQ ONE
--- NOTE | 2018-09-24 10:49 | Diagnostic Imaging Report ---
INDICATION: 68-year-old asymptomatic postmenopausal female currently on drug therapy for osteoporosis. COMPARISON: 05/17/2017 FINDINGS: AP Spine L1-L4: [BMD (g/cm2): 0.882] [T-Score: -2.6] [Z-Score: -1.5] [BMD Previous: 0.880] [BMD % Change: 0.2] LT Hip Neck: [BMD (g/cm2): 0.853] [T-Score: -1.3] [Z-Score: 0.0] LT Hip Total: [BMD (g/cm2):0.896] [T-Score:-0.9] [Z-Score: 0.1] [BMD Previous: 0.895] [BMD % Change: 0.1] RT Hip Neck: [BMD (g/cm2):0.839] [T-Score:-1.4] [Z-Score:-0.1] RT Hip Total: [BMD (g/cm2):0.898] [T-score:-0.9] [Z-Score:0.1] [BMD Previous:0.921] [BMD % Change:-2.5] *Indicates significant change from prior examination based on 95% confidence level. World Health Organization criteria for BMD interpretation classify patients as Normal (T-score at or above -1.0), Osteopenic (T-score between -1.0 and -2.5) or Osteoporotic (T-score at or below -2.5). LIMITATIONS AND MODIFICATION: None. FRACTURE RISK (FRAX SCORE): Not applicable as patient is on drug therapy. IMPRESSION: 1. Osteoporosis. 2. No significant change in bone mineral density since prior examination. 3. Advise followup DEXA in 24 months to reassess response to therapy. Dictated by: Dictated on workstation # [id number]
== END ==
LOC: RAD 07:50
PROVIDERS: ATTEND Internal Medicine Hematology & Oncology
DX: M81.0 Age-related osteoporosis without current pathological fracture (principal); C50.511 Malignant neoplasm of lower-outer quadrant of right female breast; M19.90 Unspecified osteoarthritis, unspecified site; Z78.0 Asymptomatic menopausal state; Z79.899 Other long term (current) drug therapy
CPT/HCPCS: 77080

== ENCOUNTER → 2018-10-09 | Outpatient (CLI) | payer MEDICARE, MEDICAID ==
--- NOTE | 2018-10-09 11:45 | Diagnostic Imaging Report ---
INDICATION: Screening The current study was also evaluated with a Computer Aided Detection (CAD) system. 3-D Tomographic imaging was also performed. FINDINGS: Comparison made with prior examination 10/05/2017, 10/03/16 and 10/04/2015. There are scattered fibroglandular densities bilaterally. There are stable post therapeutic changes in the right breast. There are unchanged benign lymph nodes in the left axilla. There is no new dominant mass, spiculated lesion or suspicious calcification identified. IMPRESSION: Category 2 benign ACR BI-RADS Category 2: Benign findings. Result letter will be mailed to the patient. Note: At least 10% of breast cancer is not imaged by mammography. Dictated by: Dictated on workstation # [id number]
== END ==
LOC: RAD 07:51
PROVIDERS: ATTEND Internal Medicine Hematology & Oncology
DX: Z12.31 Encounter for screening mammogram for malignant neoplasm of breast (principal); C50.511 Malignant neoplasm of lower-outer quadrant of right female breast; M81.8 Other osteoporosis without current pathological fracture; M19.90 Unspecified osteoarthritis, unspecified site
CPT/HCPCS: 77067

== ENCOUNTER 2018-10-11 12:22 | Outpatient (RCR) | payer MEDICARE, MEDICAID ==
[2018-10-11 12:41] LABS: BASOPHILS % (AUTO) 1 % (0-10); EOSINOPHILS # (AUTO) 0.1 10^3/uL (0.0-0.3); EOSINOPHILS % (AUTO) 2 % (0-10); HEMATOCRIT 42 % (35-52); HEMOGLOBIN 13.2 G/DL (11.5-16.0); LYMPHOCYTES # (AUTO) 1.6 X 10^3 (1.0-4.0); LYMPHOCYTES % (AUTO) 28 % (12-44); MEAN CORPUSCULAR HEMOGLOBIN 29 PG (25-34); MEAN CORPUSCULAR HGB CONC 32 G/DL (32-36); MEAN CORPUSCULAR VOLUME 91 FL (80-99); MEAN PLATELET VOLUME 9.4 FL (7.4-10.4); MONOCYTES # (AUTO) 0.5 X 10^3 (0.0-1.0); MONOCYTES % (AUTO) 8 % (0-12); NEUTROPHILS # (AUTO) 3.4 X 10^3 (1.8-7.8); NEUTROPHILS % (AUTO) 61 % (42-75); PLATELET COUNT 323 10^3/uL (130-400); RED CELL DISTRIBUTION WIDTH 12.9 % (10.0-14.5); WHITE BLOOD COUNT 5.5 10^3/uL (4.3-11.0)
[2018-10-11 13:00] LABS: BILIRUBIN,TOTAL 0.5 MG/DL (0.1-1.0); CALCIUM 9.4 MG/DL (8.5-10.1); CREATININE SERUM 0.95 MG/DL (0.60-1.30); POTASSIUM 3.8 MMOL/L (3.6-5.0); TOTAL PROTEIN 7.4 GM/DL (6.4-8.2)
== END 2019-01-09 | disposition home or self-care (01) ==
LOC: ONC 12:22
PROVIDERS: ATTEND Internal Medicine Hematology & Oncology
DX: C50.511 Malignant neoplasm of lower-outer quadrant of right female breast (principal); M81.8 Other osteoporosis without current pathological fracture; I10 Essential (primary) hypertension; I48.0 Paroxysmal atrial fibrillation; I49.3 Ventricular premature depolarization; E03.8 Other specified hypothyroidism; E78.5 Hyperlipidemia, unspecified; K21.9 Gastro-esophageal reflux disease without esophagitis; M19.91 Primary osteoarthritis, unspecified site; E66.9 Obesity, unspecified; Z68.33 Body mass index [BMI] 33.0-33.9, adult; Z79.01 Long term (current) use of anticoagulants; Z79.811 Long term (current) use of aromatase inhibitors; Z79.899 Other long term (current) drug therapy; Z78.0 Asymptomatic menopausal state; Z17.0 Estrogen receptor positive status [ER+]
CPT/HCPCS: 36415; 80053; 85025; 99213

== ENCOUNTER → 2018-10-24 | Outpatient (CLI) | payer MEDICARE, MEDICAID ==
[2018-10-24 08:07] LABS: BASOPHILS # (AUTO) 0.1 10^3/uL (0.0-0.1); BASOPHILS % (AUTO) 1 % (0-10); EOSINOPHILS # (AUTO) 0.1 10^3/uL (0.0-0.3); EOSINOPHILS % (AUTO) 2 % (0-10); HEMATOCRIT 41 % (35-52); LYMPHOCYTES # (AUTO) 1.6 X 10^3 (1.0-4.0); LYMPHOCYTES % (AUTO) 35 % (12-44); MEAN CORPUSCULAR HEMOGLOBIN 29 PG (25-34); MEAN CORPUSCULAR HGB CONC 32 G/DL (32-36); MEAN CORPUSCULAR VOLUME 91 FL (80-99); MEAN PLATELET VOLUME 9.4 FL (7.4-10.4); MONOCYTES # (AUTO) 0.5 X 10^3 (0.0-1.0); MONOCYTES % (AUTO) 11 % (0-12); NEUTROPHILS # (AUTO) 2.3 X 10^3 (1.8-7.8); NEUTROPHILS % (AUTO) 50 % (42-75); PLATELET COUNT 261 10^3/uL (130-400); RED CELL DISTRIBUTION WIDTH 13.2 % (10.0-14.5); WHITE BLOOD COUNT 4.6 10^3/uL (4.3-11.0)
[2018-10-24 08:24] LABS: ALANINE AMINOTRANSFERASE 20 U/L (0-55); ALKALINE PHOSPHATASE 72 U/L (40-136); BILIRUBIN,TOTAL 0.4 MG/DL (0.1-1.0); BUN/CREATININE RATIO 16; CALCIUM 9.4 MG/DL (8.5-10.1); CARBON DIOXIDE 26 MMOL/L (21-32); CHLORIDE 106 MMOL/L (98-107); CHOLESTEROL 203 MG/DL (< 200); CREATININE SERUM 0.88 MG/DL (0.60-1.30); GFR ESTIMATED > 60; GLUCOSE 95 MG/DL (70-105); HDL CHOLESTEROL 37 MG/DL (40-60); POTASSIUM 4.1 MMOL/L (3.6-5.0); SODIUM 141 MMOL/L (135-145); TOTAL PROTEIN 7.1 GM/DL (6.4-8.2); TRIGLYCERIDES 141 MG/DL (<150); VLDL CHOLESTEROL 28 MG/DL (5-40)
[2018-10-24 08:45] LABS: FREE T4 (FREE THYROXINE) 1.08 NG/DL (0.70-1.48)
== END ==
LOC: LAB 07:52
PROVIDERS: ATTEND Family Medicine
DX: I10 Essential (primary) hypertension (principal); E03.9 Hypothyroidism, unspecified; Z79.899 Other long term (current) drug therapy
CPT/HCPCS: 36415; 80053; 80061; 84439; 84443; 85025

== ENCOUNTER 2019-03-17 12:31 | Outpatient (CLI) | payer MEDICARE, MEDICAID ==
[2019-03-17 12:35] VITALS: BP 142/68
[2019-03-17] MEDS ORDERED: DENOSUMAB 60 MG/1 ML (PROLIA) SQ SCH (13:00)
== END 2019-03-17 13:05 | disposition home or self-care (01) ==
LOC: SDC 12:31
PROVIDERS: ATTEND Nurse Practitioner Family
DX: M81.0 Age-related osteoporosis without current pathological fracture (principal)
CPT/HCPCS: 96372

== ENCOUNTER 2019-04-18 05:36 | Outpatient (CLI) | payer MEDICARE, MEDICAID ==
[~2019-04-18] VITALS: Ht 154.9 cm; Wt 81.8 kg
[2019-04-18] MEDS ORDERED: METO-370 PO (15:39)
[2019-04-18] MEDS ORDERED: EXEM25TA4 PO (15:39)
[2019-04-18] MEDS ORDERED: RIVA20TA PO (15:39)
[2019-04-18] MEDS ORDERED: LEVO50TA6 PO (15:39)
[2019-04-18] MEDS ORDERED: PANT40TA3 PO (15:39)
[2019-04-18] MEDS ORDERED: LOSA25TA41 PO (15:39)
== END 2019-04-18 15:41 | disposition home or self-care (01) ==
LOC: PREOP 05:36
PROVIDERS: ATTEND Surgery
DX: Z01.818 Encounter for other preprocedural examination (principal)

== ENCOUNTER → 2019-04-25 | Day surgery (SDC) | payer MEDICARE, MEDICAID ==
--- NOTE | 2019-04-18 21:07 | HISTORY AND PHYSICAL ---
DATE OF SERVICE: 04/25/2019 PROCEDURE DATE: 04/25/2019. ATTENDING PHYSICIAN: Dr. Quinteros. HISTORY OF PRESENT ILLNESS: The patient is a 68-year-old female, who was referred over to us for a heme positive Cologuard test. Now, she reports that her last colonoscopy was in 2008 and she reports it was normal. She reports that she has not seen any visible blood in her stool as well as not had any dark tarry stools. She denies any family history of colon cancer. She also denies any issues with any diarrhea, constipation or any abdominal pain. PAST MEDICAL HISTORY: Breast cancer in 2011, hypertension, hypothyroidism, gastroesophageal reflux disease, osteoporosis, atrial fibrillation. PAST SURGICAL HISTORY: Laparoscopic umbilical hernia repair with mesh in 2011, right breast lumpectomy in 2009, which was benign and then a right breast lumpectomy in 2011, which was positive for breast cancer and a complete hysterectomy in 1996. ALLERGIES: SULFA AND MORPHINE. MEDICATIONS: 1. Aromasin 25 mg. 2. Metoprolol 50 mg. 3. Levothyroxine 50 mcg. 4. Losartan 25 mg. 5. Protonix 40 mg. 6. Prolia 60 mg. 7. Xarelto 20 mg. SOCIAL HISTORY: Negative for smoke. Rare for alcohol. FAMILY HISTORY: Mother, myocardial infarction, hypertension, COPD. Father, emphysema. Brother, lung cancer. Sister, hypertension. Maternal grandmother, myocardial infarction. REVIEW OF SYSTEMS: This is a well-nourished female in no acute distress. She is not experiencing any shortness of breath or difficulty breathing. No chest pain, palpitations or diaphoresis. No nausea, vomiting or abdominal pain. No diarrhea or constipation. No red blood per rectum. No dark tarry stools. No recent inadvertent weight loss. All other review of systems are negative. PHYSICAL EXAMINATION: VITAL SIGNS: Blood pressure is 136/78. Current weight is 181.6 at 5 feet 1. CHEST: Clear. Good breath sounds bilaterally. HEART: Regular, no murmurs. EXTREMITIES: No lower extremity edema. Negative Homans sign. HEENT: No scleral icterus. No cervical lymphadenopathy. ABDOMEN: Soft, nontender, nondistended. SKIN: Warm, dry and pink. NEUROLOGIC: Awake, alert, oriented x3. ASSESSMENT AND PLAN: A 68-year-old female with a recent heme positive Cologuard test, who is in need of a screening colonoscopy. The risks and benefits of the procedure as well as the procedure and home care instructions were explained to the patient. The patient verbalized understanding of instructions and agrees to proceed as planned. At this time, we will proceed with scheduling the patient for a screening colonoscopy. Job ID: [id number] DocumentID: [id number] Dictated Date: 04/14/2019 11:07:33 Administrative Office Manager Date: 04/14/2019 12:07:00 Dictated By: HANK CHI APRN
[~2019-04-25] VITALS: Ht 154.9 cm; Wt 81.8 kg
[2019-04-25] VITALS (14 sets, daily range): BP systolic 90–154; BP diastolic 52–92
[~2019-04-25] MED LIST changes: +ACETAMINOPHEN 325 MG TABLET PO PRN; +HYDROcodone/APAP 5 MG/325 MG (LORTAB) TAB PO PRN; +LIDOCAINE JELLY 2% 6 ML SYRINGE MM PRN; +LIDOCAINE JELLY 2% 6 ML SYRINGE ONE; +LOSA25TA41 PO; +METO-370 PO; +MIDAZOLAM 5 MG/5 ML (VERSED) VIAL ONE; +NS IV 500 ML 500 ML IV PRN; +NS IV 500 ML 500 ML ONE; +ONDANSETRON 4 MG/2 ML (SDV) Z0FRAN IVP PRN; +RIVA20TA PO; +fentaNYL INJECTION 100 MCG/2 ML AMP IVP ONE; +fentaNYL INJECTION 100 MCG/2 ML AMP IVP PRN; +fentaNYL INJECTION 100 MCG/2 ML AMP ONE
--- NOTE | 2019-04-25 11:13 | Conscious Sedation/ASA ---
Conscious Sedation Pre-Proced Time 11:10 ASA Score 2 For ASA 3 and 4: Consider anesthesia and medical clearance. Also, for patients with a history of failed moderate sedation consider anesthesia. Airway Lungs Heart ASA score ASA 1: a normal healthy patient ASA 2: a patient with a mild systemic disease (mid diabetes, controlled hypertension, obesity ASA 3: a patient with a severe systemic disease that limits activity (angina, COPD, prior Myocardial infarction) ASA 4: a patient with an incapacitating disease that is a constant threat to life (CHF, renal failure) ASA 5: a moribund patient not expected to survive 24 hrs. (ruptured aneurysm) ASA 6: a declared brain- patient whose organs are being harvested. For emergent operations, add the letter E after the classification Mallampati Classification Grade 2 Sedation Plan Analgesia, Amnesia, Plan communicated to team members, Discussed options with patient/fam, Discussed risks with patient/fam The patient is an appropriate candidate to undergo the planned procedure, sedation, and anesthesia. The patient immediately re-assessed prior to indication. YURIDIA BARROS MD Apr 25, 2019 11:13 POS
--- NOTE | 2019-04-25 11:13 | Progress Note-Pre Operative ---
Pre-Operative Progress Note H&P Reviewed The H&P was reviewed, patient examined and no changes noted. Date Seen by Provider: Apr 25, 2019 Time Seen by Provider: 11:10 Date H&P Reviewed: Apr 25, 2019 Time H&P Reviewed: 11:10 Pre-Operative Diagnosis: cologaurd pos/screening YURIDIA BARROS MD Apr 25, 2019 11:13 POS
--- NOTE | 2019-04-25 11:16 | Discharge Inst-Surgical ---
D/C Lap Instructions-PAPO Follow Up Activity as tolerated High Fiber Diet 25g or more per day Avoid Alcohol, Caffeine, Spicy [place] and Acid foods. Drink 64 fluid oz or more of fluids per day. Symptoms to Report: Fever over 101 degree F, Nausea/Vomiting If any problems/questions: Contact your physician or go to Emergency Room YURIDIA BARROS MD Apr 25, 2019 11:15 POS
[2019-04-25] MEDS: MIDAZOLAM 5 MG/5 ML (VERSED) VIAL IV PRN ×3 (11:52→12:13)
--- NOTE | 2019-04-25 12:38 | Progress Note-Post Operative ---
Post-Operative Progess Note Surgeon (s)/Learning Support Services Director (s) Surgeon YURIDIA BARROS MD Learning Support Services Director: none Pre-Operative Diagnosis cologaurd pos/screening Post-Operative Diagnosis mild chronic stage 2 ext and int hemorrhoid, mild sigmoid diverticulosis. Procedure & Operative Findings Date of Procedure 04/25/19 Procedure Performed/Findings colonoscopy Anesthesia Type cs Estimated Blood Loss Estimated blood loss (mL): minimal Specimens/Packing Specimens Removed none YURIDIA BARROS MD Apr 25, 2019 12:38 POS
--- NOTE | 2019-04-25 16:59 | OPERATIVE REPORT ---
DATE OF SERVICE: 04/25/2019 ATTENDING PRIMARY CARE PHYSICIAN: Dr. Quinteros. PREOPERATIVE DIAGNOSIS: Screening colonoscopy with a positive Cologuard test. POSTOPERATIVE DIAGNOSIS: Mild chronic stage II external and internal hemorrhoids, mild sigmoid diverticulosis. PROCEDURE: Colonoscopy. SURGEON: Yuridia Barros MD ANESTHESIA: Conscious sedation. ESTIMATED BLOOD LOSS: Minimal. FINDINGS: Mild chronic stage II external and internal hemorrhoids, mild sigmoid diverticulosis. DISPOSITION: The patient tolerated the procedure well. INDICATIONS: The patient is a 68-year-old female, referred over to us for a screening colonoscopy as well as a Cologuard test that was found to be positive. She states that she is doing well, does not report any major issues with diarrhea nor constipation as well as no red blood per rectum nor any dark tarry stools. She also does not report any family history of colon cancer. DESCRIPTION OF PROCEDURE: The patient was brought to the endoscopy suite, laid in the left lateral decubitus position. After adequate IV pain and sedative medications and conscious sedation anesthesia, a digital rectal examination was performed. Mild chronic stage II external and internal hemorrhoids were identified, which were not actively edematous nor inflamed and no bleeding. Normal sphincter tone was felt and there were no palpable masses. The endoscope was then intubated to the anus and rectum was gently insufflated. The endoscope was then advanced to the valves of [place] of the rectum with no polyps or any neoplasms identified. Through the sigmoid colon, a mild sigmoid diverticulosis was identified. The endoscope was then advanced to the remainder of the descending, transverse and ascending colon to the cecum. These segments were normal. There were no polyps or any neoplasms identified throughout the colon or rectum. She did have a significant amount of discomfort during the procedure under conscious sedation, which may indicate an irritable bowel syndrome. The patient tolerated the procedure well. We will recommend medical management with a high fiber diet with at least 25 grams of fiber a day as well as significant amounts of water to promote soft stools on a daily basis. She does not need another colonoscopy for another 10 years; however, sooner if she becomes symptomatic. Job ID: [id number] DocumentID: [id number] Dictated Date: 04/25/2019 12:27:21 Harvest Worker Fruit Date: 04/25/2019 16:58:19 Dictated By: YURIDIA BARROS MD
== END ==
LOC: ENDO 11:00
PROVIDERS: ATTEND Surgery
DX: Z12.11 Encounter for screening for malignant neoplasm of colon (principal); K57.30 Diverticulosis of large intestine without perforation or abscess without bleeding; K64.1 Second degree hemorrhoids; K64.8 Other hemorrhoids; I10 Essential (primary) hypertension; E03.9 Hypothyroidism, unspecified; K21.9 Gastro-esophageal reflux disease without esophagitis; I48.91 Unspecified atrial fibrillation; M81.0 Age-related osteoporosis without current pathological fracture; Z90.710 Acquired absence of both cervix and uterus; Z88.2 Allergy status to sulfonamides; Z88.5 Allergy status to narcotic agent; Z85.3 Personal history of malignant neoplasm of breast; Z79.01 Long term (current) use of anticoagulants; Z82.5 Family history of asthma and other chronic lower respiratory diseases; Z82.49 Family history of ischemic heart disease and other diseases of the circulatory system; Z80.1 Family history of malignant neoplasm of trachea, bronchus and lung

== ENCOUNTER 2019-06-09 05:51 | Outpatient (CLI) | payer MEDICARE, MEDICAID ==
[~2019-06-09] VITALS: Ht 154.9 cm; Wt 83.6 kg
[~2019-06-09 05:51] MED LIST changes: -ACETAMINOPHEN 325 MG TABLET PO PRN; -HYDROcodone/APAP 5 MG/325 MG (LORTAB) TAB PO PRN; -LIDOCAINE JELLY 2% 6 ML SYRINGE MM PRN; -LIDOCAINE JELLY 2% 6 ML SYRINGE ONE; -MIDAZOLAM 5 MG/5 ML (VERSED) VIAL ONE; -NS IV 500 ML 500 ML IV PRN; -NS IV 500 ML 500 ML ONE; -ONDANSETRON 4 MG/2 ML (SDV) Z0FRAN IVP PRN; -fentaNYL INJECTION 100 MCG/2 ML AMP IVP ONE; -fentaNYL INJECTION 100 MCG/2 ML AMP IVP PRN; -fentaNYL INJECTION 100 MCG/2 ML AMP ONE
== END 2019-06-09 11:05 | disposition home or self-care (01) ==
LOC: PREOP 05:51
PROVIDERS: ATTEND Specialist
DX: Z01.818 Encounter for other preprocedural examination (principal)

== ENCOUNTER 2019-06-13 07:03 | Day surgery (SDC) | payer MEDICARE, MEDICAID ==
[~2019-06-13] VITALS: Ht 154 cm; Wt 83.6 kg
[2019-06-13 07:05] VITALS: BP 121/74
[2019-06-13] MEDS ORDERED: POVIDONE (BETADINE) OPHTH SOLN 5% 30 ML OP ONE (07:15)
[2019-06-13] MEDS ORDERED: MOXIFLOXACIN OPHTH SOLN 5 MG/ML 0.3 ML SYRINGE OP ONE (07:15)
[2019-06-13] MEDS ORDERED: TIMOLOL MALEATE 0.5% 5 ML (TIMOPTIC) BTL OU PRN (07:15)
[2019-06-13] MEDS ORDERED: LIDOCAINE PF 1% 2 ML VIAL IR PRN (07:15)
[2019-06-13] MEDS: TETRACAINE 0.5% OPHTH SOLN 4 ML BTL (SINGLE DOSE ONLY) OU PRN ×4 (07:18→07:51)
[2019-06-13] MEDS: CYCLOPENTOLATE 1% (CYCLOGYL) 2 ML DROPS OP SCH ×3 (07:29→07:51)
[2019-06-13] MEDS: PHENYLEPHRINE 10% OPHTH (NEO-SYN) 5 ML BTL OU SCH ×3 (07:29→07:51)
[2019-06-13 08:30] VITALS: BP 125/83
--- NOTE | 2019-06-13 09:59 | Ophthalmology Operative Report ---
Cataract removal/placement IOL PREOPERATIVE DIAGNOSIS: Cataract Right Eye POSTOPERATIVE DIAGNOSIS: Cataract Right Eye PROCEDURE: Cataract removal and placement of posterior chamber implant, right eye SURGEON: John Eli ANESTHESIA: Topical with sedation COMPLICATIONS: None ESTIMATED BLOOD LOSS: Minimal DESCRIPTION OF PROCEDURE: After proper informed consent was obtained, the patient, a 68 female, was taken to the Operating Room and the right eye was anesthetized with tetracaine. The right eye was then prepped and draped in the usual manner. A wire lid speculum was placed. A paracentesis was made at the left hand position. Preservative free lidocaine was injected into the anterior chamber followed by viscoelastic. A clear corneal incision was made in the temporal position. A capsulorrhexis was preformed and the central nuclear and cortical material were removed. The posterior capsule was polished and Nathen 23.0 AU00T0 IOL was placed into the capsular bag. The residual viscoelastic was aspirated and balanced saline solution was injected into the anterior chamber. Moxifloxacin was injected into the anterior chamber. The wound was checked and found to be water tight. The patient tolerated the procedure well without complications. JOHN ELI MD Jun 13, 2019 09:59
--- NOTE | 2019-06-13 09:59 | Ophthalmologist Pre-Op Note ---
Pre-Operative Progress Note H&P Reviewed The H&P was reviewed, patient examined and no changes noted. Date H&P Reviewed: Jun 13, 2019 Time H&P Reviewed: 07:59 Pre-Op Dx Cataract, Right Eye BARI ELI MD Jun 13, 2019 09:59
--- NOTE | 2019-06-13 11:08 | Anesthesia-General Post-Op ---
MAC Patient Condition Mental Status/LOC: Same as Preop Cardiovascular: Satisfactory Nausea/Vomiting: Absent Respiratory: Satisfactory Pain: Controlled Complications: Absent Post Op Complications Complications None Follow Up Care/Instructions Patient Instructions None needed. Anesthesiology Discharge Order Discharge Order Patient was seen after the procedure and she was doing well, no complaints, stable vital signs, no apparent adverse anesthesia problems. JAME CHAVEZ DO Jun 13, 2019 11:08
== END 2019-06-13 08:30 | disposition home or self-care (01) ==
LOC: SDC 07:03
PROVIDERS: ATTEND Specialist
DX: H25.11 Age-related nuclear cataract, right eye (principal); I25.10 Atherosclerotic heart disease of native coronary artery without angina pectoris; I48.91 Unspecified atrial fibrillation; I11.9 Hypertensive heart disease without heart failure; K21.9 Gastro-esophageal reflux disease without esophagitis; M19.90 Unspecified osteoarthritis, unspecified site; E03.9 Hypothyroidism, unspecified; Z90.710 Acquired absence of both cervix and uterus; Z79.899 Other long term (current) drug therapy; Z88.2 Allergy status to sulfonamides; Z88.5 Allergy status to narcotic agent

== ENCOUNTER 2019-06-24 05:33 | Outpatient (CLI) | payer MEDICARE, MEDICAID ==
[~2019-06-24 05:33] MED LIST changes: -METO-370 PO; +METO50TA7 PO
== END 2019-06-24 10:46 | disposition home or self-care (01) ==
LOC: PREOP 05:33
PROVIDERS: ATTEND Specialist
DX: Z01.818 Encounter for other preprocedural examination (principal)

== ENCOUNTER 2019-06-27 06:59 | Day surgery (SDC) | payer MEDICARE, MEDICAID ==
[~2019-06-27] VITALS: Ht 154 cm; Wt 83.6 kg
[2019-06-27 07:12] VITALS: BP 128/74
[2019-06-27] MEDS ORDERED: MOXIFLOXACIN OPHTH SOLN 5 MG/ML 0.3 ML SYRINGE OP ONE (07:15)
[2019-06-27] MEDS ORDERED: POVIDONE (BETADINE) OPHTH SOLN 5% 30 ML OP ONE (07:15)
[2019-06-27] MEDS ORDERED: TIMOLOL MALEATE 0.5% 5 ML (TIMOPTIC) BTL OU PRN (07:15)
[2019-06-27] MEDS ORDERED: LIDOCAINE PF 1% 2 ML VIAL IR PRN (07:15)
[2019-06-27] MEDS: TETRACAINE 0.5% OPHTH SOLN 4 ML BTL (SINGLE DOSE ONLY) OU PRN ×4 (07:17→07:47)
[2019-06-27] MEDS: PHENYLEPHRINE 10% OPHTH (NEO-SYN) 5 ML BTL OU SCH ×3 (07:36→07:47)
[2019-06-27] MEDS: CYCLOPENTOLATE 1% (CYCLOGYL) 2 ML DROPS OP SCH ×3 (07:36→07:47)
[2019-06-27] MEDS ORDERED: MIDAZOLAM 2 MG/2 ML (VERSED) VIAL ONE (08:36)
--- NOTE | 2019-06-27 08:41 | Ophthalmologist Pre-Op Note ---
Pre-Operative Progress Note H&P Reviewed The H&P was reviewed, patient examined and no changes noted. Date H&P Reviewed: Jun 27, 2019 Time H&P Reviewed: 08:34 Pre-Op Dx Cataract, Left Eye BARI ELI MD Jun 27, 2019 08:41
--- NOTE | 2019-06-27 09:02 | Ophthalmology Operative Report ---
Cataract removal/placement IOL PREOPERATIVE DIAGNOSIS: Cataract Left Eye POSTOPERATIVE DIAGNOSIS: Cataract Left Eye PROCEDURE: Cataract removal and placement of posterior chamber implant, left eye SURGEON: John Eli ANESTHESIA: Topical with sedation COMPLICATIONS: None ESTIMATED BLOOD LOSS: Minimal DESCRIPTION OF PROCEDURE: After proper informed consent was obtained, the patient, a 68 female, was taken to the Operating Room and the left eye was anesthetized with tetracaine. The left eye was then prepped and draped in the usual manner. A wire lid speculum was placed. A paracentesis was made at the left hand position. Preservative free lidocaine was injected into the anterior chamber followed by viscoelastic. A clear corneal incision was made in the temporal position. A capsulorrhexis was preformed and the central nuclear and cortical material were removed. The posterior capsule was polished and an Nathen 23.0 AU00T0 was placed into the capsular bag. The residual viscoelastic was aspirated and balanced saline solution was injected into the anterior chamber. Moxifloxacin was injected into the anterior chamber. The wound was checked and found to be water tight. The patient tolerated the procedure well without complications. JOHN ELI MD Jun 27, 2019 09:02
[2019-06-27 09:12] VITALS: BP 154/75
--- NOTE | 2019-06-27 15:08 | Anesthesia-General Post-Op ---
MAC Patient Condition Mental Status/LOC: Same as Preop Cardiovascular: Satisfactory Nausea/Vomiting: Absent Respiratory: Satisfactory Pain: Controlled Complications: Absent Post Op Complications Complications None Follow Up Care/Instructions Patient Instructions None needed. Anesthesiology Discharge Order Discharge Order Patient is doing well, no complaints, stable vital signs, no apparent adverse anesthesia problems. No complications reported per nursing. JODY TARIQ CRNA Jun 27, 2019 15:08
== END 2019-06-27 09:12 | disposition home or self-care (01) ==
LOC: SDC 06:59
PROVIDERS: ATTEND Specialist
DX: H25.12 Age-related nuclear cataract, left eye (principal); I11.9 Hypertensive heart disease without heart failure; I25.10 Atherosclerotic heart disease of native coronary artery without angina pectoris; I48.91 Unspecified atrial fibrillation; K21.9 Gastro-esophageal reflux disease without esophagitis; E03.9 Hypothyroidism, unspecified; M19.90 Unspecified osteoarthritis, unspecified site; Z88.2 Allergy status to sulfonamides; Z88.5 Allergy status to narcotic agent; Z90.710 Acquired absence of both cervix and uterus; Z79.899 Other long term (current) drug therapy

== ENCOUNTER → 2019-10-17 | Outpatient (CLI) | payer MEDICARE, MEDICAID ==
[2019-10-17 12:56] LABS: BASOPHILS % (AUTO) 1 % (0-10); EOSINOPHILS # (AUTO) 0.4 10^3/uL (0.0-0.3); EOSINOPHILS % (AUTO) 7 % (0-10); HEMATOCRIT 43 % (35-52); HEMOGLOBIN 13.4 G/DL (11.5-16.0); LYMPHOCYTES # (AUTO) 1.8 X 10^3 (1.0-4.0); LYMPHOCYTES % (AUTO) 34 % (12-44); MEAN CORPUSCULAR HEMOGLOBIN 28 PG (25-34); MEAN CORPUSCULAR HGB CONC 31 G/DL (32-36); MEAN CORPUSCULAR VOLUME 89 FL (80-99); MEAN PLATELET VOLUME 9.3 FL (7.4-10.4); MONOCYTES # (AUTO) 0.7 X 10^3 (0.0-1.0); MONOCYTES % (AUTO) 13 % (0-12); NEUTROPHILS # (AUTO) 2.5 X 10^3 (1.8-7.8); NEUTROPHILS % (AUTO) 46 % (42-75); PLATELET COUNT 255 10^3/uL (130-400); RED CELL DISTRIBUTION WIDTH 13.3 % (10.0-14.5); WHITE BLOOD COUNT 5.4 10^3/uL (4.3-11.0)
[2019-10-17 13:26] LABS: BILIRUBIN,TOTAL 0.3 MG/DL (0.1-1.0); CALCIUM 9.2 MG/DL (8.5-10.1); CREATININE SERUM 1.09 MG/DL (0.60-1.30); TOTAL PROTEIN 7.2 GM/DL (6.4-8.2)
== END ==
LOC: EDSTATUS 01-10 10:28 → ONC 12:47
PROVIDERS: ATTEND Internal Medicine Hematology & Oncology
DX: C50.511 Malignant neoplasm of lower-outer quadrant of right female breast (principal); E03.8 Other specified hypothyroidism; I10 Essential (primary) hypertension; M81.8 Other osteoporosis without current pathological fracture; K21.9 Gastro-esophageal reflux disease without esophagitis; M19.90 Unspecified osteoarthritis, unspecified site; I48.0 Paroxysmal atrial fibrillation; E78.5 Hyperlipidemia, unspecified
CPT/HCPCS: 80053; 85025; 99213

== ENCOUNTER → 2019-10-21 | Outpatient (CLI) | payer MEDICARE, MEDICAID ==
--- NOTE | 2019-10-21 12:34 | Diagnostic Imaging Report ---
INDICATION: Routine screening. COMPARISON: 10/09/2018 and 10/05/2017. TECHNIQUE: 2D and 3D bilateral screening mammography was performed with CAD. FINDINGS: Scattered fibroglandular densities are identified bilaterally. Post therapeutic changes in the right breast appear stable. No new mass or malignant appearing microcalcifications are seen. The axillae are unremarkable. IMPRESSION: No mammographic features suspicious for malignancy are identified. ACR BI-RADS Category 2: Benign findings. Result letter will be mailed to the patient. Note: At least 10% of breast cancer is not imaged by mammography. Dictated by: Dictated on workstation # [id number]
== END ==
LOC: RAD 09:12
PROVIDERS: ATTEND Internal Medicine Hematology & Oncology
DX: Z12.31 Encounter for screening mammogram for malignant neoplasm of breast (principal)
CPT/HCPCS: 77063; 77067

== ENCOUNTER → 2019-12-08 | Outpatient (CLI) | payer MEDICARE, MEDICAID ==
[~2019-12-08] MED LIST changes: +DENOSUMAB 60 MG/1 ML (PROLIA) SQ ONE
[2019-12-08 12:55] VITALS: BP 141/74
== END ==
LOC: SDC 12:38
PROVIDERS: ATTEND Nurse Practitioner Family
DX: M81.0 Age-related osteoporosis without current pathological fracture (principal)
CPT/HCPCS: 96372

== ENCOUNTER → 2020-01-26 | Outpatient (CLI) | payer MEDICARE, MEDICAID ==
[~2020-01-26] MED LIST changes: -DENOSUMAB 60 MG/1 ML (PROLIA) SQ ONE
== END ==
LOC: CARD 11:35
PROVIDERS: ATTEND Internal Medicine Interventional Cardiology
DX: I35.1 Nonrheumatic aortic (valve) insufficiency (principal); E78.5 Hyperlipidemia, unspecified; I48.0 Paroxysmal atrial fibrillation; I49.3 Ventricular premature depolarization
CPT/HCPCS: 93306

== ENCOUNTER → 2020-02-20 | Outpatient (CLI) | payer MEDICARE, MEDICAID | LOC: LABNPT 08:26 | PROVIDERS: ATTEND Family Medicine | DX: R05 Cough (principal); R09.89 Other specified symptoms and signs involving the circulatory and respiratory systems; Z20.828 Contact with and (suspected) exposure to other viral communicable diseases | CPT/HCPCS: 87635 ==

== ENCOUNTER → 2020-06-14 | Outpatient (CLI) | payer MEDICARE, MEDICAID ==
[~2020-06-14] VITALS: Ht 154 cm; Wt 85.4 kg
[~2020-06-14] MED LIST changes: +DENOSUMAB 60 MG/1 ML (PROLIA) SQ SCH; -PANT40TA3 PO; +PANT40TA52 PO
[2020-06-14 11:50] VITALS: BP 141/76
== END ==
LOC: SDC 11:30
PROVIDERS: ATTEND Nurse Practitioner Family
DX: M81.0 Age-related osteoporosis without current pathological fracture (principal)
CPT/HCPCS: 96372

== ENCOUNTER → 2020-10-19 | Outpatient (CLI) | payer MEDICARE, MEDICAID ==
[~2020-10-19] MED LIST changes: -DENOSUMAB 60 MG/1 ML (PROLIA) SQ SCH
[2020-10-19 09:48] LABS: BASOPHILS % (AUTO) 1 % (0-10); EOSINOPHILS # (AUTO) 0.1 10^3/uL (0.0-0.3); EOSINOPHILS % (AUTO) 3 % (0-10); HEMATOCRIT 43 % (35-52); HEMOGLOBIN 13.4 g/dL (11.5-16.0); LYMPHOCYTES # (AUTO) 1.6 10^3/uL (1.0-4.0); LYMPHOCYTES % (AUTO) 36 % (12-44); MEAN CORPUSCULAR HEMOGLOBIN 29 pg (25-34); MEAN CORPUSCULAR HGB CONC 31 g/dL (32-36); MEAN CORPUSCULAR VOLUME 91 fL (80-99); MEAN PLATELET VOLUME 9.3 fL (9.0-12.2); MONOCYTES # (AUTO) 0.5 10^3/uL (0.0-1.0); MONOCYTES % (AUTO) 11 % (0-12); NEUTROPHILS # (AUTO) 2.2 10^3/uL (1.8-7.8); NEUTROPHILS % (AUTO) 50 % (42-75); PLATELET COUNT 246 10^3/uL (130-400); WHITE BLOOD COUNT 4.4 10^3/uL (4.3-11.0)
[2020-10-19 10:10] LABS: BILIRUBIN,TOTAL 0.5 MG/DL (0.1-1.0); CALCIUM 8.9 MG/DL (8.5-10.1); CREATININE SERUM 1.02 MG/DL (0.60-1.30)
== END ==
LOC: ONC 10:02
PROVIDERS: ATTEND Internal Medicine Hematology & Oncology
DX: C50.519 Malignant neoplasm of lower-outer quadrant of unspecified female breast (principal); M85.80 Other specified disorders of bone density and structure, unspecified site; M81.0 Age-related osteoporosis without current pathological fracture; E03.9 Hypothyroidism, unspecified; I10 Essential (primary) hypertension; K21.9 Gastro-esophageal reflux disease without esophagitis; I48.0 Paroxysmal atrial fibrillation; E78.5 Hyperlipidemia, unspecified
CPT/HCPCS: 80053; 85025; G0463; 99213

== ENCOUNTER → 2020-11-02 | Outpatient (CLI) | payer MEDICARE, MEDICAID ==
--- NOTE | 2020-11-02 12:54 | Diagnostic Imaging Report ---
INDICATION: Routine screening. Comparison is made with prior mammogram 10/21/2019 and 10/09/2018. 2-D and 3-D bilateral screening mammography was performed with CAD. Both breasts are primarily involutional. There are post-therapeutic changes in the right breast. The parenchymal pattern is stable. No mass is detected. There are no malignant appearing microcalcifications identified. Axillae are unremarkable. IMPRESSION: BI-RADS Category 2 No mammographic features suspicious for malignancy are identified. ACR BI-RADS Category 2: Benign findings. Result letter will be mailed to the patient. Note: At least 10% of breast cancer is not imaged by mammography. Dictated by: Dictated on workstation # [id number]
== END ==
LOC: RAD 09:48
PROVIDERS: ATTEND Nurse Practitioner Adult Health
DX: Z12.31 Encounter for screening mammogram for malignant neoplasm of breast (principal)
CPT/HCPCS: 77063; 77067

== ENCOUNTER → 2020-11-02 | Outpatient (CLI) | payer MEDICARE, MEDICAID ==
--- NOTE | 2020-11-02 11:12 | Diagnostic Imaging Report ---
INDICATION: 70-year-old postmenopausal female with osteopenia. COMPARISON: 09/24/2018. FINDINGS: AP Spine L1-L4: [BMD (g/cm2): 0.954] [T-Score: -2.1] [Z-Score: -1.1] [BMD Previous: 0.882] [BMD % Change: 8.2] LT Hip Neck: [BMD (g/cm2): 0.875] [T-Score: -1.2] [Z-Score: 0.1] LT Hip Total: [BMD (g/cm2):0.934] [T-Score:-0.6] [Z-Score: 0.4] [BMD Previous: 0.896] [BMD % Change: 4.2] RT Hip Neck: [BMD (g/cm2):0.911] [T-Score:-0.9] [Z-Score:0.3] RT Hip Total: [BMD (g/cm2):0.944] [T-score:-0.5] [Z-Score:0.5] [BMD Previous:0.898] [BMD % Change:5.1] *Indicates significant change from prior examination based on 95% confidence level. World Health Organization criteria for BMD interpretation classify patients as Normal (T-score at or above -1.0), Osteopenic (T-score between -1.0 and -2.5) or Osteoporotic (T-score at or below -2.5). LIMITATIONS AND MODIFICATION: Patient is currently taking Prolia. IMPRESSION: 1. Osteopenia (Low bone mass). 2. No significant change in bone mineral density since prior examination. 3. See below National Osteoporosis Foundation guidelines on when to potentially initiate pharmacologic therapy. Based on the National Osteoporosis Foundation Guidelines, pharmacologic treatment should be initiated in any of the following, unless clinical conditions suggest otherwise: * Any patient with prior fragility fracture of the hip or vertebrae. A spine fracture indicates 5X risk for subsequent spine fracture and 2X risk for subsequent hip fracture. * Osteoporosis (T-score <-2.5). * Postmenopausal women and men age 50 and older with low bone mass/osteopenia (T-score between -1.0 and -2.5) by DXA and 10-year major osteoporotic fracture greater than 20% or a 10-year probability of hip fracture greater than 3%. These fracture risks are supplied above in the FRAX score, if applicable. * Clinician judgement and/or patient preferences may indicate treatment for people with 10-year fracture probabilities above or below these levels. Dictated by: Dictated on workstation # [id number]
== END ==
LOC: RAD 09:42
PROVIDERS: ATTEND Internal Medicine Hematology & Oncology
DX: M85.80 Other specified disorders of bone density and structure, unspecified site (principal); M81.0 Age-related osteoporosis without current pathological fracture; Z78.0 Asymptomatic menopausal state
CPT/HCPCS: 77080

== ENCOUNTER 2020-12-20 10:55 | Outpatient (CLI) | payer MEDICARE, MEDICAID ==
[~2020-12-20] VITALS: Ht 154.9 cm; Wt 85.4 kg
[2020-12-20 11:00] VITALS: BP 136/84
[2020-12-20] MEDS ORDERED: DENOSUMAB 60 MG/1 ML (PROLIA) SQ SCH (12:00)
== END 2020-12-20 12:18 ==
LOC: SDC 10:55
PROVIDERS: ATTEND Nurse Practitioner Family
DX: M81.0 Age-related osteoporosis without current pathological fracture (principal)
CPT/HCPCS: 96372

== ENCOUNTER → 2021-08-30 | Outpatient (CLI) | payer MEDICARE, MEDICAID ==
[~2021-08-30] MED LIST changes: +DENOSUMAB 60 MG/1 ML (PROLIA) SQ SCH
[2021-08-30 11:33] VITALS: BP 139/84
== END ==
LOC: SDC 11:13
PROVIDERS: ATTEND Nurse Practitioner Family
DX: M81.0 Age-related osteoporosis without current pathological fracture (principal)
CPT/HCPCS: 96372

== ENCOUNTER 2021-10-18 09:35 | Day surgery (SDC) | payer MEDICARE, MEDICAID ==
[~2021-10-18] VITALS: Ht 154.9 cm; Wt 86.7 kg
[~2021-10-18 09:35] MED LIST changes: -DENOSUMAB 60 MG/1 ML (PROLIA) SQ SCH
[2021-10-18] MEDS ORDERED: LIDOCAINE 1% INJ 20 ML VIAL ONE (10:00)
[2021-10-18] MEDS ORDERED: LIDOCAINE 1% INJ 20 ML VIAL INJ ONE (10:00)
[2021-10-18 10:07] VITALS: BP 148/75
--- NOTE | 2021-10-18 18:18 | OPERATIVE REPORT ---
DATE OF SERVICE: 10/18/2021 PREOPERATIVE DIAGNOSIS: Paroxysmal atrial fibrillation. POSTOPERATIVE DIAGNOSIS: Paroxysmal atrial fibrillation. PROCEDURE: Removal of implantable loop recorder at end of life and implantation of a new implantable loop recorder. INDICATIONS: The patient is a 71-year-old lady, who has a history of paroxysmal atrial fibrillation and continues to need monitoring for it. Her device had reached end of life. Informed consent was obtained for removal and implantation of a new one. DESCRIPTION OF PROCEDURE: [facility] The left prepectoral area, the site of previous implantable loop recorder implantation, was prepared and draped in the usual sterile fashion. Lidocaine 1% was used for local anesthesia. Sharp and blunt dissection was used to make a very small incision at the medial end of the previously implanted device and the device was removed. A new device was implanted in the same pocket. This is [employer] LINQ II with serial #[id number]. One absorbable stitch was applied and Dermabond and Steri-Strips were used at the incision. She tolerated the procedure well. Job ID: [id number] DocumentID: [id number] Dictated Date: 10/18/2021 12:26:45 Inlayer Date: 10/18/2021 18:17:30 Dictated By: PASQUALE HASSAN MD, MA, FACP, FACC,
== END 2021-10-18 12:48 | disposition home or self-care (01) ==
LOC: CATH 09:35
PROVIDERS: ATTEND Internal Medicine Cardiovascular Disease
DX: I48.0 Paroxysmal atrial fibrillation (principal); Z79.01 Long term (current) use of anticoagulants; I10 Essential (primary) hypertension; E78.5 Hyperlipidemia, unspecified; C50.919 Malignant neoplasm of unspecified site of unspecified female breast
CPT/HCPCS: 33285; 33286; C1764

== ENCOUNTER → 2021-11-03 | Outpatient (CLI) | payer MEDICARE, MEDICAID ==
--- NOTE | 2021-11-03 15:30 | Diagnostic Imaging Report ---
INDICATION: Routine screening. COMPARISON is made prior mammograms from 11/02/2020 and 10/21/2019. 2-D and 3-D bilateral screening mammography was performed with CAD. Both breasts are primarily involutional. Postsurgical changes in the right breast are again noted. No mass or malignant-appearing microcalcifications are identified. Axillae are unremarkable apart from surgical clips right axilla. IMPRESSION: BI-RADS Category 2 No mammographic features suspicious for malignancy are identified. ACR BI-RADS Category 2: Benign findings. Result letter will be mailed to the patient. Note: At least 10% of breast cancer is not imaged by mammography. Dictated by: Dictated on workstation # [id number]
== END ==
LOC: RAD 10:16
PROVIDERS: ATTEND Internal Medicine Hematology & Oncology
DX: Z12.31 Encounter for screening mammogram for malignant neoplasm of breast (principal)
CPT/HCPCS: 77063; 77067

== ENCOUNTER → 2021-11-08 | Outpatient (CLI) | payer MEDICARE, MEDICAID ==
[2021-11-08 09:17] LABS: BASOPHILS % (AUTO) 1 % (0-10); EOSINOPHILS # (AUTO) 0.2 10^3/uL (0.0-0.3); EOSINOPHILS % (AUTO) 4 % (0-10); HEMATOCRIT 42 % (35-52); HEMOGLOBIN 13.2 g/dL (11.5-16.0); LYMPHOCYTES # (AUTO) 1.9 10^3/uL (1.0-4.0); LYMPHOCYTES % (AUTO) 40 % (12-44); MEAN CORPUSCULAR HEMOGLOBIN 29 pg (25-34); MEAN CORPUSCULAR HGB CONC 32 g/dL (32-36); MEAN CORPUSCULAR VOLUME 90 fL (80-99); MEAN PLATELET VOLUME 9.2 fL (9.0-12.2); MONOCYTES # (AUTO) 0.6 10^3/uL (0.0-1.0); MONOCYTES % (AUTO) 12 % (0-12); NEUTROPHILS # (AUTO) 2.1 10^3/uL (1.8-7.8); NEUTROPHILS % (AUTO) 44 % (42-75); PLATELET COUNT 228 10^3/uL (130-400); WHITE BLOOD COUNT 4.8 10^3/uL (4.3-11.0)
[2021-11-08 09:32] LABS: ALBUMIN 3.9 GM/DL (3.2-4.5)
[2021-11-08 09:35] LABS: TOTAL PROTEIN 6.8 GM/DL (6.4-8.2)
[2021-11-08 09:37] LABS: BILIRUBIN,TOTAL 0.4 MG/DL (0.1-1.0)
[2021-11-08 09:39] LABS: CREATININE SERUM 1.03 MG/DL (0.60-1.30)
== END ==
LOC: ONC 09:09
PROVIDERS: ATTEND Internal Medicine Hematology & Oncology
DX: C50.519 Malignant neoplasm of lower-outer quadrant of unspecified female breast (principal); I10 Essential (primary) hypertension; K21.9 Gastro-esophageal reflux disease without esophagitis; E78.2 Mixed hyperlipidemia; E66.01 Morbid (severe) obesity due to excess calories; E03.9 Hypothyroidism, unspecified
CPT/HCPCS: 80053; 85025; G0463; 36415; 99213

== ENCOUNTER → 2022-03-03 | Outpatient (CLI) | payer MEDICARE, MEDICAID ==
[~2022-03-03] VITALS: Wt 86.7 kg
[~2022-03-03] MED LIST changes: +DENOSUMAB 60 MG/1 ML (PROLIA) SQ SCH
[2022-03-03 11:00] VITALS: BP 0/0
== END ==
LOC: SDC 10:43
PROVIDERS: ATTEND Nurse Practitioner Family
DX: M81.0 Age-related osteoporosis without current pathological fracture (principal)
CPT/HCPCS: 96372

== ENCOUNTER 2022-08-22 10:45 | Outpatient (CLI) | payer MEDICARE, MEDICAID ==
[~2022-08-22] VITALS: Ht 154.9 cm; Wt 86.7 kg
[~2022-08-22 10:45] MED LIST changes: -DENOSUMAB 60 MG/1 ML (PROLIA) SQ SCH
[2022-08-22] MEDS ORDERED: DENOSUMAB 60 MG/1 ML (PROLIA) SQ ONE (11:00)
[2022-08-22 11:03] VITALS: BP 144/73
== END 2022-08-22 11:20 | disposition home or self-care (01) ==
LOC: SDC 10:45
PROVIDERS: ATTEND Nurse Practitioner Family
DX: M81.0 Age-related osteoporosis without current pathological fracture (principal)
CPT/HCPCS: 96372

== ENCOUNTER → 2022-09-19 | Outpatient (CLI) | payer MEDICARE, MEDICAID | LOC: CARD 08:32 | PROVIDERS: ATTEND Nurse Practitioner Family | DX: I08.3 Combined rheumatic disorders of mitral, aortic and tricuspid valves (principal) | CPT/HCPCS: 93306 ==

== ENCOUNTER → 2022-09-26 | Outpatient (CLI) | payer MEDICARE, MEDICAID ==
[~2022-09-26] MED LIST changes: +REGADENOSON 0.4 MG/5 ML SYR (LEXISCAN) IV ONE
[2022-09-26] MEDS: CATHETER FLUSH 10 ML SYR IVP PRN ×2 (11:20→13:04)
[2022-09-26 13:04] VITALS: BP 135/65
--- NOTE | 2022-09-28 11:12 | STRESS TEST ---
DATE OF SERVICE: 09/26/2022 RESTING AND POST REGADENOSON TECHNETIUM-99M TETROFOSMIN SPECT CT IMAGING ORDERING PHYSICIAN: Mai Fonseca APRN. PRIMARY PHYSICIAN: Dr. Quinteros. CLINICAL DIAGNOSIS: I48. Baseline images were carried out after injection of 10.79 mCi of technetium-99m tetrofosmin. This was followed by 0.4 mg regadenoson and 30.8 mCi technetium-99m tetrofosmin for stress imaging. The electrocardiogram showed sinus rhythm at baseline. It did not change significantly with the regadenoson infusion. There was incomplete right bundle branch block at baseline. This did not change. Isolated premature ventricular contractions were seen. These were relatively infrequent. Review of images at rest and following stress does not indicate any significant perfusion defects consistent with significant myocardial ischemia or infarction. Gated images show normal global left systolic function with normal regional wall motion. Left ventricular ejection fraction is calculated to be 67%. CONCLUSIONS: 1. No evidence of any significant myocardial ischemia or infarction on study. 2. Normal regional wall motion. 3. Normal global left ventricular systolic function with a calculated ejection fraction of 67%. Job ID: [id number] DocumentID: [id number] Dictated Date: 09/28/2022 08:13:26 Case Loader Operator Date: 09/28/2022 10:49:00 Dictated By: PASQUALE HASSAN MD; SHEELA; FACP; FACC;
== END ==
LOC: CARD 10:54
PROVIDERS: ATTEND Nurse Practitioner Family
DX: I48.0 Paroxysmal atrial fibrillation (principal)
CPT/HCPCS: 78452; 93017; A9502

== ENCOUNTER → 2022-11-07 | Outpatient (CLI) | payer MEDICARE, MEDICAID ==
[~2022-11-07] MED LIST changes: -REGADENOSON 0.4 MG/5 ML SYR (LEXISCAN) IV ONE
--- NOTE | 2022-11-08 09:41 | Diagnostic Imaging Report ---
INDICATION: Routine screening. Comparison is made with prior mammogram from 11/03/2021 and 11/02/2020. 2-D and 3-D bilateral screening mammography was performed with CAD. CAD is utilized. The current study was also evaluated with a Computer Aided Detection (CAD) system. Scattered fibroglandular densities are identified bilaterally. Post therapeutic changes in the right breast are again noted. No mass or malignant-appearing microcalcifications are seen. Axillae are unremarkable. IMPRESSION: BI-RADS Category 2 No mammographic features suspicious for malignancy are identified. ACR BI-RADS Category 2: Benign findings. Result letter will be mailed to the patient. Note: At least 10% of breast cancer is not imaged by mammography. Dictated by: Dictated on workstation # [id number]
== END ==
LOC: RAD 07:40
PROVIDERS: ATTEND Family Medicine
DX: Z12.31 Encounter for screening mammogram for malignant neoplasm of breast (principal)
CPT/HCPCS: 77063; 77067

== ENCOUNTER 2023-02-27 10:33 | Outpatient (CLI) | payer MEDICARE, MEDICAID ==
[~2023-02-27] VITALS: Ht 154.9 cm; Wt 87.3 kg
[2023-02-27] MEDS ORDERED: DENOSUMAB 60 MG/1 ML (PROLIA) SQ SCH (11:00)
[2023-02-27 11:08] VITALS: BP 145/65
== END 2023-02-27 11:08 | disposition home or self-care (01) ==
LOC: SDC 10:33
PROVIDERS: ATTEND Nurse Practitioner Family
DX: M81.0 Age-related osteoporosis without current pathological fracture (principal)
CPT/HCPCS: 96372